=== PATIENT | female | born 1965 | race Caucasian/White ===

== ENCOUNTER 2020-07-26 09:20 | Emergency (ER) | payer OTHER, SELFPAY ==
--- NOTE | ~2020-07-26 | XR_ITS ---
EXAMINATION: XR ankle LT min 3V DATE: 07/26/2020 11:00 INDICATION: Left ankle pain, initial encounter TECHNIQUE: Anteroposterior, lateral, mortise, and additional oblique view of the ankle were obtained. COMPARISON: 09/04/2008 FINDINGS: An oblique lucency is seen in the distal fibula at the site of the prior fibular fracture. No definite new fibular abnormality is identified. A healed fracture of the medial malleolus is noted . There is ankle soft tissue swelling. 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 IMPRESSION: 1. Soft tissue swelling of the ankle without definite acute osseous abnormality identified. Reviewed, dictated and finalized at location B.
--- NOTE | ~2020-07-26 | US_ITS ---
EXAMINATION: US venous doppler [facility] DATE: 07/26/2020 11:30 INDICATION: Left ankle pain TECHNIQUE: Lowe scale images without and with compression and Doppler images of the left lower extrem ity veins were obtained. COMPARISON: None FINDINGS: The left common femoral vein, profunda femoral vein, femoral vein, popliteal vein, peroneal trunk, posterior tibial veins, and greater saphenous vein are patent. IMPRESSION: 1. Patent left lower extremity veins. No evidence of deep venous thrombosis. Reviewed, dictated and finalized at location B.
[2020-07-26 09:40] VITALS: BP 135/75; PULSE 78; RESP 14; TEMP 36.6; O2SAT 99
--- NOTE | 2020-07-26 10:51 | ED.LOWEXIN ---
HPI - Extremity Injury (Lower) General Chief Complaint: Extremity Injury, Lower <Sintia Umanzor PA-C - Last Filed: 07/26/20 14:35> Stated Complaint: ankle pain <DANIELE Navarro Last Filed: 07/26/20 14:35> Time Seen by Provider: 07/26/20 10:14 <DANIELE Navarro Last Filed: 07/26/20 14:35> Source: patient <DANIELE Navarro Last Filed: 07/26/20 14:35> Mode of arrival: wheelchair <DANIELE Navarro Last Filed: 07/26/20 14:35> Limitations: no limitations <DANIELE Navarro Last Filed: 07/26/20 14:35> History of Present Illness HPI Narrative: This is a 54-year-old female that presents the emergency department for acute on chronic left ankle pain since last night. No known recent injury or trauma. Reports history of fracture to this ankle with ORIF, reports hardware has since been removed. Reports she sees a painting and coating worker for her pain in this ankle. Reports she has recently been diagnosed with lymphedema in this leg. Reports since last night she has been having trouble bearing weight on the foot. Reports her pain is worse than usual. Also reports she noted a rash on the left leg this morning. Denies fever. <DANIELE Navarro Last Filed: 07/26/20 14:35> Related Data Home Medications: Home Medications Medication Instructions Recorded Confirmed celecoxib mg 07/26/20 fluoxetine mg 07/26/20 furosemide 07/26/20 gabapentin 07/26/20 hydrocodone-acetaminophen tablet 07/26/20 hyoscyamine sulfate mg 07/26/20 omeprazole 07/26/20 ondansetron 07/26/20 trazodone 50 mg PO HS PRN 07/26/20 <DANIELE Navarro Last Filed: 07/26/20 14:35> Allergies/Adverse Reactions: Allergies Allergy/AdvReac Type Severity Reaction Status Date / Time nickel Allergy Intermediate Hives / Verified 02/13/18 18:56 Red Face <DANIELE Navarro Last Filed: 07/26/20 14:35> Review of Systems Review of Systems: Narrative: CONSTITUTIONAL: Denies fever SKIN: Reports rash MUSCULOSKELETAL: Reports joint pain, and myalgia. NEUROLOGIC: Denies numbness <Sintia Umanzor PA-C - Last Filed: 07/26/20 14:35> All systems reviewed & are unremarkable except as noted in HPI and below <Sintia Umanzor PA-C - Last Filed: 07/26/20 14:35> [facility] Past Medical History Medical History: Medical History (Updated 07/26/20 @ 14:34 by Sintia Umanzor PA-C) History of depression History of gastroesophageal reflux (GERD) <Sintia Umanzor PA-C - Last Filed: 07/26/20 14:35> Family History Family History: Family History (Updated 02/13/16 @ 08:25 by DOCTOR UNKNOWN) Other Asthma Depression Family history of arthritis Family history of chronic obstructive pulmonary disease Family history of hearing loss Family history of hepatitis Family history of lung cancer Family history of mental disorder Family history of osteoporosis Family history of thyroid disease Hypertension <Sintia Umanzor PA-C - Last Filed: 07/26/20 14:35> Social History Social History: Social History (Updated 07/26/20 @ 10:53 by Sintia Umanzor PA-C) Smoking status: Never smoker Alcohol intake: current Substance use: never <Sintia Umanzor PA-C - Last Filed: 07/26/20 14:35> Exam Narrative: Exam Narrative: GENERAL: Well-appearing, obese, and in no acute distress. HEAD: Normocephalic, atraumatic. EYES: EOMI. EXTREMITIES: Normal range of motion, except decreased range of motion in the left ankle which patient reports is ongoing since her surgery. Non-pitting edema to the left ankle and left lower leg which patient reports is chronic for her. Normal DP pulses. Normal sensation SKIN: Warm, dry. A few scattered red papules on the left lower leg NEURO: No focal deficits. Alert and oriented x3. PSYCH: Normal mood and affect <Sintia Umanzor PA-C - Last Filed: 07/26/20 14:35> Course Vital Signs Vital signs:
[2020-07-26] MEDS: MORPHINE SULFATE 10 MG/ML AMP IM (11:00)
[2020-07-26] MEDS: ONDANSETRON HCL ODT 4 MG TABLET PO (11:00)
[2020-07-26 11:16] LABS: Basophils Percent Auto 0.9 % (0.2-1.2); Eosinophils Absolute Auto 0.3 K/mm3 (0-0.3); Eosinophils Percent Auto 6.3 % (0-4.4); Hematocrit 34.4 % (37.0-47.0); Hemoglobin 11.2 g/dL (12.0-15.0); Immature Granulocyte Absolute 0.01 K/mm3 (0.00-0.031); Immature Granulocyte Percent A 0.2 % (0-0.5); Lymphocytes Absolute Auto 1.26 K/mm3 (0.9-3.2); Lymphocytes Percent Auto 28.6 % (18.3-44.2); Mean Corpuscular HGB Conc 32.6 g/dl (32-36); Mean Corpuscular Hemoglobin 28.5 pg (26-34); Mean Corpuscular Volume 87.5 fl (80-100); Mean Platelet Volume 9.6 fl (7.4-10.4); Monocytes Absolute Auto 0.4 K/mm3 (0.1-0.6); Monocytes Percent Auto 8.2 % (2.6-8.5); Neutrophils Absolute Auto 2.5 K/mm3 (1.3-6.7); Neutrophils Percent Auto 55.8 % (45.5-73.1); Platelet Count Result 232 k/mm3 (150-375); Red Blood Count 3.93 M/mm3 (4.2-5.4); Red Cell Distribution Width 12.9 % (11.5-14.5); White Blood Count 4.4 K/mm3 (4.5-10.0)
[2020-07-26 11:36] LABS: Anion Gap 6 mmol/L (8-16); Blood Urea Nitrogen 17 mg/dL (7-17); CRP 3.1 mg/dL (<1.0); Calcium 9.2 mg/dL (8.4-10.2); Carbon Dioxide 27 mmol/L (22-30); Chloride 104 mmol/L (98-107); Estimated CRCL calculation 93 ml/min; Estimated Glomerular Filt Rate > 60; Glucose 95 mg/dL (65-105); Potassium 4.7 mmol/L (3.4-5.0); Sodium 137 mmol/L (137-145)
[2020-07-26 12:35] VITALS: BP 129/74; PULSE 73; RESP 12; O2SAT 99
[2020-07-26 14:12] VITALS: BP 124/70; PULSE 70; RESP 12; O2SAT 99
== END 2020-07-26 14:40 | disposition home or self-care (01) ==
PROVIDERS: Physician Assistant; Emergency Provider General Practice; PCP Family Medicine
DX: S82.832A Other fracture of upper and lower end of left fibula, initial encounter for closed fracture (principal); F32.9 Major depressive disorder, single episode, unspecified; K21.9 Gastro-esophageal reflux disease without esophagitis; X58.XXXA Exposure to other specified factors, initial encounter
CPT/HCPCS: 29515; 36415; 73610; 80048; 85025; 86140; 93971; 96372; 99284; A9270; J1100; J2270

== ENCOUNTER → 2020-10-12 11:01 | Outpatient (CLI) | payer OTHER, SELFPAY ==
--- NOTE | ~2020-10-12 | MR_ITS ---
EXAMINATION: MR thoracic spine wo con EXAM DATE: 10/12/2020 11:38 INDICATION: Thoracic radiculopathy . Mid back pain. TECHNIQUE: Multi-sequential, multiplanar MR images of the thoracic spine were obtained without contra st. Sagittal T1, T2, T2 fat saturation, axial T2 weighted images reviewed. There is no prior study for comparison. Axial T1 weighted sequence. There are no prior studies for comparison. FINDINGS: There is mild thoracic disc disease and arthropathy. No central canal or neural foraminal s tenosis. The spinal cord signal intensity and intrinsic morphology is normal. Vertebral body heights are maintained. There are several focal signal abnormalities consistent with hemangiomata, otherwise without focal suspicious marrow signal abnormalities. Paraspinal soft tissue is unremarkable. IMPRESSION: Mild thoracic spondylosis without stenosis. Reviewed, dictated and finalized at location B. SCALDER
== END ==
PROVIDERS: PCP Family Medicine; Visit Provider Physician Assistant
DX: M47.24 Other spondylosis with radiculopathy, thoracic region (principal)
CPT/HCPCS: 72146

== ENCOUNTER → 2021-01-21 10:03 | Outpatient (CLI) | payer OTHER, SELFPAY ==
--- NOTE | ~2021-01-21 | MR_ITS ---
EXAMINATION: MR cervical spine wo con EXAM DATE: 01/21/2021 11:02 INDICATION: Cervical radicular pain, chronic neck pain, right 4th digit numbness left elbow burning. TECHNIQUE: Multi-sequential, multiplanar MR images of the cervical spine were obtained without contra st. Axial T2, axial T2 MERGE sequence. Sagittal T1, T2, T2 fat saturation images also obtained. Th ere is no prior study for comparison. FINDINGS: There is a approximately 2 cm right thyroid lobe nodule; this was previously biopsied in 2 016. Only mild cervical disc disease. Vertebral body heights are maintained. The vertebral bodies are aligned in the AP dimension. The spinal cord signal intensity and intrinsic morphology is normal. Ce rvicomedullary junction is normal in appearance. There are scattered focal signal abnormalities consi stent with hemangiomata, otherwise without focal suspicious marrow signal abnormalities. Paraspinal soft tissue is unremarkable. Level by level evaluation: C2-C3: Disc does not extend beyond the endplate margin. Uncovertebral joint arthropathy: None. Facet joint arthropathy: Mild bilateral. Neural foraminal stenosis: No stenosis. Central canal stenosis: No stenosis. C3-C4: Disc does not extend beyond the endplate margin. Uncovertebral joint arthropathy: None. Facet joint arthropathy: Mild to moderate bilateral. Neural foraminal stenosis: No stenosis. Central canal stenosis: No stenosis. C4-C5: There is a minimal diffuse disc bulge. Uncovertebral joint arthropathy: Mild to moderate bilateral. Facet joint arthropathy: None. Neural foraminal stenosis: No stenosis. Central canal stenosis: No stenosis. C5-C6: There is a minimal diffuse disc bulge. Uncovertebral joint arthropathy: None. Facet joint arthropathy: Mild bilateral. Neural foraminal stenosis: No stenosis. Central canal stenosis: No stenosis. C6-C7: Disc does not extend beyond the endplate margin. Uncovertebral joint arthropathy: Mild bilateral. Facet joint arthropathy: Minimal bilateral. Neural foraminal stenosis: No stenosis. Central canal stenosis: No stenosis. C7-T1: Disc does not extend beyond the endplate margin. Uncovertebral joint arthropathy: None. Facet joint arthropathy: Mild left. Neural foraminal stenosis: No stenosis. Central canal stenosis: No stenosis. IMPRESSION: 1. Mild cervical spondylosis without stenosis. Reviewed, dictated and finalized at location A. ILIZING MACHINE OPERATOR
== END ==
PROVIDERS: Visit Provider Physician Assistant
DX: M54.12 Radiculopathy, cervical region (principal); M47.812 Spondylosis without myelopathy or radiculopathy, cervical region
CPT/HCPCS: 72141

== ENCOUNTER 2022-08-07 08:00 | Outpatient (NON) | payer BC, SELFPAY | END 2022-08-07 08:01 | disposition home or self-care (01) | LOC: ANHLAB 08-08 12:47 | PROVIDERS: PCP Family Medicine; Visit Provider Surgery Plastic and Reconstructive Surgery | DX: L98.9 Disorder of the skin and subcutaneous tissue, unspecified (principal) | CPT/HCPCS: 88304 ==

== ENCOUNTER 2023-10-28 07:00 | Outpatient (NON) | payer BC, SELFPAY | END 2023-10-28 07:01 | disposition home or self-care (01) | LOC: ANHLAB 10-30 11:51 | PROVIDERS: PCP Family Medicine; Visit Provider Surgery Plastic and Reconstructive Surgery | DX: R22.9 Localized swelling, mass and lump, unspecified (principal) | CPT/HCPCS: 88305 ==

== ENCOUNTER 2023-11-20 17:37 | Outpatient (NON) | payer BC, SELFPAY | END 2023-11-20 17:38 | disposition home or self-care (01) | LOC: ANHLAB 17:40 | PROVIDERS: PCP Family Medicine; Visit Provider Surgery Plastic and Reconstructive Surgery | DX: L76.34 Postprocedural seroma of skin and subcutaneous tissue following other procedure (principal) | CPT/HCPCS: 87070; 87075; 87147; 87181; 87186; 87205 ==

== ENCOUNTER 2025-02-04 20:33 | Inpatient (IN) | payer BC, SELFPAY ==
--- NOTE | ~2025-02-04 | XR_ITS ---
CHEST RADIOGRAPH, PA AND LATERAL CLINICAL HISTORY: CP, THAT RADIATES TO BACK . COMPARISON: 02/13/2018 TECHNIQUE: PA and lateral views of the chest. FINDINGS The cardiomediastinal silhouette is unremarkable. The lungs are clear. Significant gaseous distention of the stomach, possibly related to patient's discomfort. IMPRESSION: No focal infiltrate or effusion. Reviewed, dictated and finalized at location A.
--- OUTSIDE RECORDS SUMMARY | 2025-02-04 20:35 | XMS_ITS | Encounter Summary ---
Author Organization [facility] Address [address] [place] [address] Care Team Providers Care Claim Approver Name Role Phone Vinnie Goddard MD Primary Care Provider [phone] Encounter Details Date Type Department Care Team (Late st Contact Info) Description 12/07/2024 Igneous Systemst Message Enc [facility] Family Medicine - [place] [address] [facility], [address] [place] [phone] Vinnie Goddard MD [address] [facility] [address] [place] [address] [phone] Sick 2+ days Social History Tobacco Use Types Packs/Day Years Used Date Smoking Tobacco: Never Passive Smoke Exposure: Never Smokeless Tobacco: Never Comments:Never Smoked Alcohol Use Standard Drinks/Week Comments No 0 (1 standard drink = 0.6 oz pur e alcohol) none AUDIT-C Answer Date Recorded Frequency of Alcohol Consumption Never 01/23/2019 Average Number of Drinks Not on file 019 Frequency of Binge Drinking Not on file 06/2019 PHQ-2 Answer Date Recorded Patient Health Questionnaire-2 Score 0 12/10/2024 Comments No Sex and Gender Information Value Date Recorded Sex Assigned at Female 05/28/2023 8:30 AM CDT Legal Sex Female 4:17 PM CDT Gender Identity Female 05/28/2023 8:30 AM CDT Sexual Orientation Straight 12/10/2024 1: 09 PM INTERNATIONAL RELATIONS TEACHER documented as of this encounter Functional Status * RETIRED Are you deaf or do you have serious difficulty hearing Answer Date of Assessment Author Status No 10/05/2020 2:38 PM INTERNATIONAL RELATIONS TEACHER Activ e * RETIRED Are you blind or do you have serious difficulty seeing, even when wearing glasses? Answer Date of Assessment Author Status No 10/05/2020 2:38 PM INTERNATIONAL RELATIONS TEACHER Activ e * Do you have serious difficulty walking or climbing stairs? Answer Date of Assessment Author Status No 10/05/2020 2:38 PM INTERNATIONAL RELATIONS TEACHER Marisela Cotton RN Active * Do you have difficulty dressing or bathing? Answer Date of Assessment Author Status No 10/05/2020 2:38 PM INTERNATIONAL RELATIONS TEACHER Marisela Cotton RN Active * Because of a physical, mental, or emotional condition, do you have difficulty doing errands alone such as visiting a doctor's office or shopping? Answer Date of Assessment Author Status No 10/05/2020 2:38 PM INTERNATIONAL RELATIONS TEACHER Marisela Cotton RN Active documented as of this encounter Mental Status * Because of a physical, mental, or emotional condition, do you have serious difficulty concentrating, remembering, or making decisions? Answer Entry Date Author Status No 10/05/2020 2:38 PM INTERNATIONAL RELATIONS TEACHER Marisela Cotton RN Active documented in this encounter Plan of Treatment Not on file documented as of this encounter Visit Diagnoses Not on filedocumented in this encounter Additional Health Concerns Assessment Noted Time PHQ-9 Depression Total Score: 2 02/27/20 22 4:28 PM CDT documented as of this encounter Care Teams Claim Approver Relationship Specialty Start Date End Date Vinnie Goddard MD [address] [facility] [address] [place] [address] PCP - General FAMILY PRACTICE 02/17/18 documented as of this encounter
--- OUTSIDE RECORDS SUMMARY | 2025-02-04 20:35 | XMS_ITS | Encounter Summary ---
Author Organization [facility] Address [address] [place] [address] Care Team Providers Care Pyrotechnician Name Role Phone Vinnie Goddard MD Primary Care Provider [phone] Encounter Details Date Type Department Care Team (Late st Contact Info) Description 03/18/2024 MyCmascotsecrett Message Enc [facility] Family Medicine - [place] [address] [facility], [address] [place] [address] [phone] Vinnie Goddard MD [address] [facility] [address] [place] [address] [phone] Wegovy Social History Tobacco Use Types Packs/Day Years [...] Date Recorded Patient Health Questionnaire-2 Score 0 10/29/2023 Comments No Sex and Gender Information Value Date Recorded Sex Assigned at Female 05/28/2023 8:30 AM CDT Legal Sex Female 4:17 PM CDT Gender Identity Female 05/28/2023 8:30 AM CDT Sexual Orientation Straight 12/10/2024 1: 09 PM CHIEF OF FIELD OPERATIONS documented as of this encounter Functional Status * RETIRED Are you deaf or do you have serious difficulty hearing Answer Date of Assessment Author Status No 10/05/2020 2:38 PM CHIEF OF FIELD OPERATIONS Activ e * RETIRED Are you blind or do you have serious difficulty seeing, even when wearing glasses? Answer Date of Assessment Author Status No 10/05/2020 2:38 PM CHIEF OF FIELD OPERATIONS Activ e * Do you have serious difficulty walking or climbing stairs? Answer Date of Assessment Author Status No 10/05/2020 2:38 PM CHIEF OF FIELD OPERATIONS Marisela Cotton RN Active * Do you have difficulty dressing or bathing? Answer Date of Assessment Author Status No 10/05/2020 2:38 PM CHIEF OF FIELD OPERATIONS Marisela Cotton RN Active * Because of a physical, mental, or emotional condition, do you have difficulty doing errands alone such as visiting a doctor's office or shopping? Answer Date of Assessment Author Status No 10/05/2020 2:38 PM CHIEF OF FIELD OPERATIONS Marisela Cotton RN Active documented as of this encounter Mental Status * Because of a physical, mental, or emotional condition, do you have serious difficulty concentrating, remembering, or making decisions? Answer Entry Date Author Status No 10/05/2020 2:38 PM CHIEF OF FIELD OPERATIONS Marisela Cotton RN Active documented in this encounter Plan of Treatment Not on file documented as of this encounter Visit Diagnoses Not on filedocumented in this encounter Additional Health Concerns Assessment Noted Time PHQ-9 Depression Total Score: 2 02/27/20 22 4:28 PM CDT documented as of this encounter Care Teams Pyrotechnician Relationship Specialty Start Date End Date Vinnie Goddard MD [address] [facility] [address] [place] [address] PCP - General FAMILY PRACTICE 02/17/18 documented as of this encounter
--- OUTSIDE RECORDS SUMMARY | 2025-02-04 20:35 | XMS_ITS | Encounter Summary ---
Author Organization [facility] Address [address] [place] [address] Care Team Providers Care Insurance Clerk Name Role Phone Vinnie Goddard MD Primary Care Provider [phone] Encounter Details Date Type Department Care Team (Late st Contact Info) Description 07/27/2024 Copybart Message Enc [facility] Family Medicine - [place] [address] [facility], [address] [place] [phone] Vinnie Goddard MD [address] [facility] [address] [place] [address] [phone] Surgery Social History Tobacco Use Types Packs/Day Years [...] Date Recorded Patient Health Questionnaire-2 Score 0 06/11/2024 Comments No Sex and Gender Information Value Date Recorded Sex Assigned at Female 05/28/2023 8:30 AM CDT Legal Sex Female 4:17 PM CDT Gender Identity Female 05/28/2023 8:30 AM CDT Sexual Orientation Straight 12/10/2024 1: 09 PM TUBE LANCER documented as of this encounter Functional Status * RETIRED Are you deaf or do you have serious difficulty hearing Answer Date of Assessment Author Status No 10/05/2020 2:38 PM TUBE LANCER Activ e * RETIRED Are you blind or do you have serious difficulty seeing, even when wearing glasses? Answer Date of Assessment Author Status No 10/05/2020 2:38 PM TUBE LANCER Activ e * Do you have serious difficulty walking or climbing stairs? Answer Date of Assessment Author Status No 10/05/2020 2:38 PM TUBE LANCER Marisela Cotton RN Active * Do you have difficulty dressing or bathing? Answer Date of Assessment Author Status No 10/05/2020 2:38 PM TUBE LANCER Marisela Cotton RN Active * Because of a physical, mental, or emotional condition, do you have difficulty doing errands alone such as visiting a doctor's office or shopping? Answer Date of Assessment Author Status No 10/05/2020 2:38 PM TUBE LANCER Marisela Cotton RN Active documented as of this encounter Mental Status * Because of a physical, mental, or emotional condition, do you have serious difficulty concentrating, remembering, or making decisions? Answer Entry Date Author Status No 10/05/2020 2:38 PM TUBE LANCER Marisela Cotton RN Active documented in this encounter Plan of Treatment Not on file documented as of this encounter Visit Diagnoses Not on filedocumented in this encounter Additional Health Concerns Assessment Noted Time PHQ-9 Depression Total Score: 2 02/27/20 22 4:28 PM CDT documented as of this encounter Care Teams Insurance Clerk Relationship Specialty Start Date End Date Vinnie Goddard MD [address] [facility] [address] [place] [address] PCP - General FAMILY PRACTICE 02/17/18 documented as of this encounter
--- OUTSIDE RECORDS SUMMARY | 2025-02-04 20:35 | XMS_ITS | Encounter Summary ---
Author Organization [facility] Address [address] [place] [address] Care Team Providers Care Datapower Developer Name Role Phone Vinnie Goddard MD Primary Care Provider [phone] Encounter Details Date Type Department Care Team (Late st Contact Info) Description 08/06/2024 Facet Decision Systemst Message Enc [facility] Family Medicine - [place] [address] [facility], [address] [place] [phone] Vinnie Goddard MD [address] [facility] [address] [place] [address] [phone] Follow up from surgery Social History Tobacco Use Types Packs/Day Years [...] Sexual Orientation Straight 12/10/2024 1: 09 PM ICE SELLER documented as of this encounter Functional Status * RETIRED Are you deaf or do you have serious difficulty hearing Answer Date of Assessment Author Status No 10/05/2020 2:38 PM ICE SELLER Activ e * RETIRED Are you blind or do you have serious difficulty seeing, even when wearing glasses? Answer Date of Assessment Author Status No 10/05/2020 2:38 PM ICE SELLER Activ e * Do you have serious difficulty walking or climbing stairs? Answer Date of Assessment Author Status No 10/05/2020 2:38 PM ICE SELLER Marisela Cotton RN Active * Do you have difficulty dressing or bathing? Answer Date of Assessment Author Status No 10/05/2020 2:38 PM ICE SELLER Marisela Cotton RN Active * Because of a physical, mental, or emotional condition, do you have difficulty doing errands alone such as visiting a doctor's office or shopping? Answer Date of Assessment Author Status No 10/05/2020 2:38 PM ICE SELLER Marisela Cotton RN Active documented as of this encounter Mental Status * Because of a physical, mental, or emotional condition, do you have serious difficulty concentrating, remembering, or making decisions? Answer Entry Date Author Status No 10/05/2020 2:38 PM ICE SELLER Marisela Cotton RN Active documented in this encounter Plan of Treatment Not on file documented as of this encounter Visit Diagnoses Not on filedocumented in this encounter Additional Health Concerns Assessment Noted Time PHQ-9 Depression Total Score: 2 02/27/20 22 4:28 PM CDT documented as of this encounter Care Teams Datapower Developer Relationship Specialty Start Date End Date Vinnie Goddard MD [address] [facility] [address] [place] [address] PCP - General FAMILY PRACTICE 02/17/18 documented as of this encounter
--- OUTSIDE RECORDS SUMMARY | 2025-02-04 20:35 | XMS_ITS | Encounter Summary ---
Author Organization [facility] Care Team Providers Care Doors Prefitter Name Role Phone Luc Stevens MD Primary Care Provider + Jasmine Mendoza MD Primary Care Provider [phone] Luc Stevens MD Primary Care Provider + Vinnie Goddard MD Primary Care Provider [phone] Encounter Details Date Type Department Care Team (Latest Contact Info) Description 05/07/2016 Orders Only [facility] ProviderKeon MD [address] [place] [id number] Social History Tobacco Use Types Packs/Day Years Used Date Smoking Tobacco: Never Alcohol Use Standard Drinks/Week Comments Yes 0 (1 standard drink = 0.6 oz pur e alcohol) Comments Unknown Sex and Gender Information Value Date Recorded Sex Assigned at Not on file Legal Sex Female 12:39 AM FASHION DIRECTOR PARTY PLAN SALES Gender Identity Not on file Sexual Orientation Not on file documented as of this encounter Plan of Treatment Not on file documented as of this encounter Procedures Procedure Name Priority Date/Time Associated Diagnosis Comments PROCEDURE - RESULT 05/11/2016 12 :00 AM CDT documented in this encounter Results * PROCEDURE - RESULT (05/11/2016 12:00 AM CDT) Narrative 05/11/2016 12:00 AM CDT Ordered by an unspecified provider. us Historical Provider Final Res ult documented in this encounter Visit Diagnoses Not on filedocumented in this encounter Care Teams Doors Prefitter Relationship Specialty Start Date End Date Luc Stevens MD [address] [place] [address] PCP - General 04/05/17 02/09/18 Jasmine Mendoza MD [address] [place] [address] PCP - General 02/10/18 02/23/18 Luc Stevens MD [address] [place] [address] PCP - General 02/24/18 07/26/20 Vinnie Goddard MD [address] [address] PCP - General Family Practice 07/27/20 documented as of this encounter
--- OUTSIDE RECORDS SUMMARY | 2025-02-04 20:35 | XMS_ITS | Data Portability ---
Author Organization [facility] [employer] [facility] [place] , [facility] Address [address] [place] [address] Care Team Providers Care Pharmacy Services Director Name Role Phone 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 Plan of Treatment Reminders Order Date Submit Date Provider Last Modified By Organization Details Last Modified Time Details Appointments None recorded. Lab None recorded. Referral breast surgery referral 2023 024 naun 3 [facility], 1 [facility], [place], [address], 4 16:38:18 Procedures None recorded. Surgeries None recorded. Imaging MAMMO, screening, digital, bilateral 2023 024 ATHENAFAX [facility], 1 [facility], [place], [address], 4 14:55:13 MAMMO, screening, digital, bilateral 2022 [email or web address], [address], [address] [address], [place], [address], 3 16:00:51 Medication Orders Estring 2 mg (7.5 mcg/24 hour) vaginal ring 2023 024 [facility] In [facility], [address] [place] [address] Line , [place], [address], 4 14:10:35 estradiol 0.01% (0.1 mg/gram) vaginal cream 2022 023 [facility] [address] In [facility], [address] [place], [address], 13:14:17 Patient TargetsNo targets recorded. Patient Instructions Encounter Date Encounter Id Patient Instructions Last Modified By Organization Details Last Modified Time 04/09/2023 [id number] atrophic vaginitis: care instructions Not available 04/09/2023 13:14:14 A healthy lifestyle: care instructions Not available 04/09/2023 13:13:51 calcium and vitamin D combination Not available 04/09/2023 13:13:51 depression (wome n only) Not available 04/09/2023 13:13:51 eating healthy foods: care instructions Not available 04/09/2023 13:13:51 exercise program : getting started Not available 04/09/2023 13:13:51 learning about colonoscopy Not available 04/09/2023 13:13:51 Reason for Referral Breast Surgery Referral for Inversion of nipple Referring Physician: Sintia Mojica, TRUSS MAKER, Encounter Date: 06/15/2024 Results Created Date Observation Date Name Description Value Unit Range Abnormal Flag Note LastModifiedBy Organization Detail LastModifiedTime 06/25/20 24 06/25/2024 MAMMO , scree jasper, tomos ynthe sis, bilat eral [facility] [address] [facility] [place] [address] This is a summar y report . The comple te report is availa ble in the patien t's medica l record . If you cannot access the medica l record , please contac t the patrice diaz for a detail ed fax or copy. EXAMIN ATION: Digita l bilate ral screen ing mammog riley with 3-D tomosy nthesi s ACCESS ION: [id number] EXAM DATE/T RYLAND: 06/25/20 24 8:49 AM REASON FOR EXAM: SCREEI NG Benign left-s ided biopsy in 2011. COMPAR TROY: 2017. 023 Techni que: Digita l screen ing mammog teresa of both breast s was perfor med in additi on to 3-D Tomosy nthesi s techni que. This study was read with the assist ance of a Global Filmd[employer] er-aid ed detect ion system . Tissue densit y: There are scatte red areas of fibrog landul ar densit y. Findin gs: There is no new focal asymme try, domina nt mass lesion , area of skin thicke jasper, or cluste r of suspic ious appear ing calcif icatio ns in either breast to sugges t malign tyrel. ===== IMPRES RAMON: ===== 1. Stable mammog raphic appear ance with no new findin gs to sugges t malign tyrel in either breast . Assess ment: ACR BI-RAD S 1 - NEGATI VE Recomm endati on: 1:Rout ine Screen ing Bilate ral Commen ts: ====== ====== ====== ====== Ordere d By: SINTIA MOJICA Electr onical ly Signed By: Talib Esquivel on 06/25/20 11:48 AM Interp reted By: Talib Esquivel , 06/25/20 11:[address], [address], 06/26/2024 16:57:02 Result Notes None recorded. Problems No Known Problems Procedures Surgical History Date Name Laterality Status Provider Name and Address Organization Details Recorded Time laparoscopic hysterectomy completed Alba Mojica [employer] [facility] 04/07/2023 17:45:01 020 resection of bilateral fallopian tubes completed Albaluois Mojica [employer] [facility] 04/07/2023 17:45:54 020 Cystourethroscopy completed Alba Boyd [employer] [facility] 04/07/2023 17:46:16 020 lysis of adhesions completed [employer] [facility] 04/07/2023 17:46:47 018 Most Recent [facility] [employer] 04/07/2023 17:37:18 018 Date of Last Pap Smear completed Yasmine [facility] [employer] 04/09/2023 12:39:51 017 Date of Last Colonoscopy completed Yasmine [facility] [employer] 04/09/2023 12:40:35 biopsy of breast [facility] [employer] 04/07/2023 17:40:39 Dilation and curettage completed [facility] [employer] 04/07/2023 17:41:25 [facility] [employer] [place] 04/07/2023 17:42:48 Hysteroscopy [facility] [employer] [facility] [place] 04/07/2023 17:43:54 Colonoscopy completed Yasmine [facility] [employer] 04/09/2023 12:28:35 Gall bladder completed Yasmine [facility] [employer] [place] 04/09/2023 12:28:35 Imaging Results Imaging Date Name Status LastModified by Organiz ation Details LastModified Time 06/25/2024 MAMMO, screening, tomosynthesis, bilateral completed [address], [address], 06/26/2024 16:57:02 Procedure Notes None recorded. Medical Equipment None Reported. Allergies Allergen ID Allergen Name Allergen Category Reaction Reaction Severity Criticality Documentation Date Start Date Code Code System Note Provider Name and Address Organization Details Recorded Time 370420 nickel environme nt,medica tion Not available Not available Not available 09/08/20212018 68413 29 RxNorm Sever ity: Moder ate; Not Available Not Available Not Available Medications Name Sig Start Date Stop Date Status Note LastModified by Organization Details LastModified Time fluoxetin e 40 mg capsule TAKE 1 CAPSULE (40 MG TOTAL) BY MOUTH DAILY. active Not Available Not Available No t Available Estring 2 mg (7.5 mcg/24 hour) vaginal ring Insert 1 vaginal ring by vaginal route. 2023 active Not Available Not Available Not Avai lable tizanidin e 2 mg tablet TAKE 1 TABLET BY MOUTH EVERY 8 HOURS active Not Available Not Available No t Available trazodone 50 mg tablet take 1 tablet (50 mg) by oral route PRN 06/15 completed traZODon e 50 mg oral tablet RxNorm: 198467 Allow Substitu tion: False Refill Denied: No Refill DateOccu rred: 09/30/20 Edited by: Sintia Archibald) on 11/08/20 Stopped by: Sintia Archibald) on Not Available Not Available Not Available ibuprofen 800 mg tablet TAKE 1 TABLET BY MOUTH EVERY 8 HOURS NEEDED active Not Available Not Available No t Available valacyclo vir 1 gram tablet TAKE 1 TABLET (1,000 MG TOTAL) BY MOUTH 2 (TWO) TIMES DAILY NEEDED FOR OUTBREAK active Not Available Not Available No t Available metronida zole 0.75 % (37.5 mg/5 gram) vaginal gel insert 1 applicat orful (37.5 mg) by vaginal route once daily at bedtime for 5 days then twice weekly for 4 months 04/09 completed metroNID AZOLE 0.75 % Vaginal Gel RxNorm: 006926 Allow Substitu tion: True Refill Denied: No Edited by: Jennifer Cordova) on 07/28/20 Stopped by: Jennifer Cordova) on Not Available Not Available Not Available metaxalon e 400 mg tablet TAKE 1 TABLET BY MOUTH THREE TIMES A DAY 06/15 completed Not Available Not Available Not Available sulfameth oxazole 800 mg-trimet hoprim 160 mg tablet TAKE 1 TABLET BY MOUTH TWICE A DAY 06/15 completed Not Available Not Available Not Available hydrocodo ne 10 mg-acetam inophen 325 mg tablet TAKE 1 TABLET BY MOUTH EVERY 4 HOURS NEEDED FOR CHRONIC PAIN active Not Available Not Available No t Available citalopra m 20 mg tablet TAKE 1 TABLET BY MOUTH EVERY DAY 06/15 completed Not Available Not Available Not Available triamcino lone acetonide 0.1 % dental paste PLACE ONTO TEETH 2 TIMES DAILY. 06/15 completed Not Available Not Available Not Available Flagyl 500 mg tablet 1 PO BID for 7 days. Do not drink alchohol while taking this medicati on. 06/02 completed Flagyl 500mg Tablet RxNorm: 727124 Allow Substitu tion: True Refill Denied: No Not Available Not Available Not Available hydrocodo ne 7.5 mg-acetam inophen 325 mg tablet 04/09 completed Hydrocod one/Acet aminophe n Allow Substitu tion: True Refill Denied: No Refill DateOccu rred: 09/19/20 18 Edited by: danny(Sintia Redman) on 07/28/20 19 Stopped by: danny(Sintia Redman) on Not Available Not Available Not Available cephalexi n 500 mg capsule TAKE 1 CAPSULE BY MOUTH EVERY 8 HOURS 06/15 completed Not Available Not Available Not Available pantopraz ole 40 mg tablet,de layed release TAKE 1 TABLET BY MOUTH EVERY DAY active Not Available Not Available No t Available hyoscyami ne sulfate 0.125 mg tablet TAKE 1 TABLET BY MOUTH 3-4 TIMES DAILY NEEDED. active Not Available Not Available No t Available gabapenti n 300 mg capsule TAKE 4 CAPSULES BY MOUTH NIGHTLY AT BEDTIME active Not Available Not Available No t Available mupirocin 2 % topical ointment APPLY TO AFFECTED AREA 3 TIMES A DAY FOR 7 DAYS 06/15 completed Not Available Not Available Not Available ergocalci ferol (vitamin D2) 1,250 mcg (50,000 unit) capsule TAKE 1 CAPSULE BY MOUTH ONE TIME PER WEEK active Not Available Not Available No t Available estradiol 0.01% (0.1 mg/gram) vaginal cream active Not Available Not Available Not Available methylpre dnisolone 4 mg tablets in a dose pack FOLLOW PACKAGE DIRECTIO NS 04/09 completed Not Available Not Available Not Available ondansetr on 4 mg disintegr ating tablet DISSOLVE 1 TABLET BY MOUTH EVERY 8 HOURS NEEDED FOR NAUSEA active Not Available Not Available No t Available fluoxetin e 20 mg capsule TAKE 1 CAPSULE BY MOUTH EVERY DAY 06/15 completed Not Available Not Available Not Available amoxicill in 875 mg-potass ium clavulana te 125 mg tablet TAKE 1 TABLET BY MOUTH TWICE A DAY FOR 10 DAYS 04/09 completed Not Available Not Available Not Available escitalop riley 10 mg tablet TAKE 1 TABLET BY MOUTH EVERY DAY 06/15 completed Not Available Not Available Not Available escitalop riley 20 mg tablet TAKE 1 TABLET BY MOUTH EVERY DAY 06/15 completed Not Available Not Available Not Available rosuvasta tin 20 mg tablet TAKE 1 TABLET BY MOUTH NIGHTLY AT BEDTIME active Not Available Not Available No t Available fluconazo le 09/30 completed Fluconaz ole Allow Substitu tion: True Refill Denied: No Refill DateOccu rred: 09/19/20 18 Edited by: kwame ellison(Thornt on, Lisseth ) on 09/30/20 Stopped by: kwame ellison(Thornt on, Lisseth ) on 09/30/20 Not Available Not Available Not Available ibuprofen 06/15 completed Ibuprofe n Allow Substitu tion: True Refill Denied: No Refill DateOccu rred: 09/19/20 18 Edited by: danny(Sintia Redman) on 07/28/20 19 Stopped by: Sintia Archibald) on Not Available Not Available Not Available Prozac 09/30 completed Prozac RxNorm: 37570 Allow Substitu tion: True Refill Denied: No Refill DateOccu rred: 09/19/20 18 Edited by: kwame ellison(Thornt on, Lisseth ) on 09/30/20 20 Stopped by: kwame ellison(Thornt on, Lisseth ) on 09/30/20 20 Not Available Not Available Not Available Maxzide 09/30 completed Maxzide RxNorm: 70155 Allow Substitu tion: True Refill Denied: No Refill DateOccu rred: 09/19/20 18 Edited by: kwame ellison(Thornt on, Lisseth ) on 09/30/20 20 Stopped by: kwame ellison(Thornt on, Lisseth ) on 11/13/20 20 Not Available Not Available Not Available Prilosec 06/15 completed Prilosec RxNorm: 551771 Allow Substitu tion: True Refill Denied: No Refill DateOccu rred: 09/19/20 18 Edited by: Sintia Archibald) on 07/28/20 19 Stopped by: danny(Sintia Redman) on Not Available Not Available Not Available Zyrtec PRN 2017 active Zyrtec RxNorm: 53453 Allow Substitu tion: True Refill Denied: No Refill DateOccu rred: 09/19/20 18 Edited by: danny(Sintia Redman) on 07/28/20 19 Stopped by: danny(Sintia Redman) on Not Available Not Available Not Available gabapenti n 04/03 completed Gabapent in RxNorm: 94 Allow Substitu tion: True Refill Denied: No Refill DateOccu rred: 09/19/20 18 Not Available Not Available Not Available Lexapro 09/30 completed Lexapro RxNorm: 461452 Allow Substitu tion: True Refill Denied: No Refill DateOccu rred: 09/30/20 Edited by: kwame ellison(Thornt on, Lisseth ) on 09/30/20 20 Stopped by: kwame ellison(Thornt on, Lisseth ) on Not Available Not Available Not Available Vagifem 10 mcg vaginal tablet insert 1 tablet (10 mcg) by vaginal route twice weekly 04/09 completed Vagifem 10 mcg Vaginal tablet RxNorm: 957094 Allow Substitu tion: True Refill Denied: No Edited by: danny(Sintia Redman) on 11/08/20 20 Stopped by: danny(Sintia Redman) on Not Available Not Available Not Available hydrocodo ne 2.5 mg-acetam inophen 325 mg tablet 04/09 completed Hydrocod one/Acet aminophe n Allow Substitu tion: True Refill Denied: No Refill DateOccu rred: 09/19/20 18 Edited by: danny(Sintia Redman) on 07/28/20 19 Stopped by: danny(Sintia Redman) on Not Available Not Available Not Available naloxone 4 mg/actuat ion nasal spray PLEASE SEE ATTACHED FOR DETAILED DIRECTIO NS 06/15 completed Not Available Not Available Not Available Wegovy 0.25 mg/0.5 mL subcutane ous pen injector INJECT 0.25 MG INTO THE SKIN ONCE A WEEK FOR 28 DAYS 06/15 completed Not Available Not Available Not Available Vitals Date Recorded Body height Body mass index (BMI) Body weight Systolic blood pressure Diastolic blood pressure Provider Name and Address Organization Details Last Updated DateTime 04/09/2023 172.72 cm 35.1 kg/m2 533810.1 2 g 130 mm[Hg] 82 mm[Hg] Yasmine Solomon [employer] [facility] 3 12:39:26 Date Recorded Body height Body mass index (BMI) Body weight Systolic blood pressure Diastolic blood pressure Provider Name and Address Organization Details Last Updated DateTime 06/15/2024 172.72 cm 34.3 kg/m2 840894.7 2 g 124 mm[Hg] 80 mm[Hg] Kalia Fraser [employer] [facility] 4 13:44:00 Social History Question Answer Notes LastModified by Organizat ion Details LastModified Time Tobacco Smoking Status Never Smoker Yasmine Solomon [facility] [employer] [facility] 04/09/2023 12:28:35 What Is Your Level Of Alcohol Consumption? Occasional [email or web address] Information not available 04/09/2023 Are You Blind Or Do You Have Difficulty Seeing? No [email or web address] Information not available 04/09/2023 Are You Currently Employed? Yes Information not available 04/09/2023 Are You Deaf Or Do You Have Serious Difficulty Hearing? No Information not available 04/09/2023 What Type Of Diet Are You Following? REGULAR [email or web address] Information not available 04/09/2023 Do You Or Have You Ever Used E-cigarettes Or Vape? 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 2 [email or web address] Information not available 04/09/2023 What Is Your Relationship Status? Information not available 04/07/2023 Are You Sexually Active? Yes Information not available 04/07/2023 Do You Use Any Illicit Or Recreational Drugs? No [email or web address] Information not available 04/09/2023 Do You Or Have You Ever Used Any Other Forms Of Tobacco Or Nicotine? No Information not available 04/09/2023 Sex: Unknown Functional Status Question Answer Note LastModified by Organizat ion Details LastModified Time What is your exercise level? Occasional [email or web address] Information not available 04/09/2023 Mental Status None recorded. Family History Relationship Description Onset Age of this Age Resolved Age Notes LastModified by Organization Details LastModified Time Mother Depressive disorder [email or web address] Not available 04/09 12:28:33 Mother Hypertensive disorder [email or web address] Not available 04/09 12:28:33 Mother Heart disease [email or web address] Not available 04/09 12:28:33 Mother Osteoporosis [email or web address] Not madelaine ilable 04/09/2023 12:28:33 Maternal Grandfather Malignant neoplastic disease [email or web address] Not available 04/09 12:28:33 Father Malignant tumor of lung [email or web address] Not available 04/09 12:28:33 Father Hypertensive disorder [email or web address] Not available 04/09 12:28:33 Father Heart disease [email or web address] Not available 04/09 12:28:33 Medical History Condition Response Gallbladder disease Y Osteopenia Y Anxiety Disorder Y Arthritis Y Seasonal allergies Y History of Abnormal Pap Y High Cholesterol Y Gynecological History Statement/Question Response If Post Menopausal, Age at Menopause 53 Date of Last Colonoscopy 11/18/2016 Flow Heavy Frequency of Cycle (Q days) 26 Date of LMP 08/18/2020 Date of Last Pap Smear 09/18/2018 Duration of Flow (days) 4-7 Most Recent Mammogram 09/30/2018 Current Control Method Hysterectom y Age at Menarche 16 Obstetrics History GPAL:G 3 P 3 0 0 3 Type Value Full Term 3 Living 3 Total 3 Past Encounters Encounter ID Performer Location Encounter Start Date Encounter Closed Date Diagnosis/Indication Diagnosis SNOMED-CT Code Diagnosis ICD10 Code Diagnosis Note [id number] Sintia Mojica MD [facility] [address] [place] [address] 04/09/2023 12:23:58 04/09/2023 16:00:51 Gynecologic examination 98441955 Z01.419 Screening for malignant neoplasm of breast 626699940 Z12.39 reports following up with Dr. Nguyễn for abnormal mammo in 2018. I was unable to view any of those records. Patient admits to being over due for Mammogram. Screening colonoscopy 44 0496653 Z12.11 2017 Depression screening 171 787201 Z13.31 none - minimal Atrophic vaginitis 15348 [address] N95.2 Female str ess incontinence 08350069 N39.3 offered referral. Patient declines. 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 1009 N64.59 Additional diagnosis detail: Inverted nipple Health Concerns Section Related Observation LastModified by Organization Detai ls LastModified Time None Recorded Concern Status LastModified by Organization Details LastModified Time None Recorded Advance Directives Directive None Recorded Payers Encounter Date Sequence Insurance Name Policy Number Policy Damon Covered Member ID Damon Member ID Guarantor Name 04/09/2023 1 [place] [id number] 1 Erika S Barnish [id number] AB Erika S Barnish 06/15/2024 1 [place] [id number] 1 Erika S Barnish [id number] AB Erika S Barnish Notes Date Note Type Note Provider Name and Address Organization Details Recorded Time 04/09/2023 text/html Annual Rectifying Operator Post-MenopausalRep orted bypatient.Menopaus al Symptoms:hot flashes Vaginal Bleeding:history of menopause having occurred; hysterectomy Urinary Symptoms:urinary frequency: times during the day Vulva:no genital lesion Vagina:normal vaginal discharge Breast:no breast lump; no nipple discharge; no breast pain; problems with right nipple feels needs surgery like what was done to left nipp;e Sexual Complaints:pain during intercourse; apotting after intercourse Psychological Symptoms:depressio n;anxiety; on medication Preventive Measures:encourage self breast examination; encourage regular exercise; needs to schedule mammogram Erika 57 y/o here for annual well women visit, she is post hysterectomy, Last mammogram 2018. Last colonscopy 2017 Sintia Mojica MD [address] [place] [address], [phone], [facility] [employer] [facility] 04/09/2023 13:15:10 06/15/2024 text/html Erika 58 y/o is here to discuss her nipple and get a mammogram order. She states her rt nipple is inverted. She states she was recently dx'd w/ lipidemia and wanted to know if it had anything to do with issue with her nipple. She denies any breast discharge, redness or irritation. Patient also reports that her vaginal dryness is bad. She cannot remember to use her estradiol cream. She really would like some other medication to treat. Sintia Mojica MD [address] [place] [address], [place], [address], [facility] [employer] [facility] 06/15/2024 14:24:03 OBGyn Episode No OBEpisode recorded.
--- OUTSIDE RECORDS SUMMARY | 2025-02-04 20:35 | XMS_ITS | Encounter Summary ---
Author Organization [facility] Care Team Providers Care Web Production Assistant Name Role Phone Luc Stevens MD Primary Care Provider + Jasmine Mendoza MD Primary Care Provider [phone] Luc Stevens MD Primary Care Provider + Vinnie Goddard MD Primary Care Provider [phone] Encounter Details Date Type Department Care Team (Latest Contact Info) Description 05/28/2016 Orders Only [facility] CLINCONV ProviderKeon MD [address] [place] [id number] Social History Tobacco Use Types Packs/Day Years Used Date Smoking Tobacco: Never Alcohol Use Standard Drinks/Week Comments Yes 0 (1 standard drink = 0.6 oz pur e alcohol) Comments Unknown Sex and Gender Information Value Date Recorded Sex Assigned at Not on file 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 us Historical Provider Final Res ult documented in this encounter Visit Diagnoses Not on filedocumented in this encounter Care Teams Web Production Assistant Relationship Specialty Start Date End Date Luc Stevens MD [address] [place] [address] PCP - General 04/05/17 02/09/18 Jasmine Mendoza MD [address] [place] [address] PCP - General 02/10/18 02/23/18 Luc Stevens MD [address] [place] [address] PCP - General 02/24/18 07/26/20 Vinnie Gdodard MD [address] [address] PCP - General Family Practice 07/27/20 documented as of this encounter
--- OUTSIDE RECORDS SUMMARY | 2025-02-04 20:35 | XMS_ITS | Encounter Summary ---
Author Organization [facility] Facility Care Team Providers Care Pearl Glue Drier Name Role Phone Luc Stevens MD Primary Care Provider + Jasmine Mendoza MD Primary Care Provider [phone] Luc Stevens MD Primary Care Provider + Vinnie Goddard MD Primary Care Provider [phone] Encounter Details Date Type Department Care Team (Latest Contact Info) Description 07/05/2017 Orders Only [facility] CLINCONV ProviderKeon MD [address] [place] [address] Social History Tobacco Use Types Packs/Day Years Used Date Smoking Tobacco: Never Alcohol Use Standard Drinks/Week Comments Yes 0 (1 standard drink = 0.6 oz pur e alcohol) Comments Unknown Sex and Gender Information Value Date Recorded Sex Assigned at Not on file 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 Historical Provider Final Res ult * PROCEDURE - RESULT (07/05/2017 12:00 AM CDT) Narrative 07/05/2017 12:00 AM CDT Ordered by an unspecified provider. Historical Provider Final Res ult documented in this encounter Visit Diagnoses Not on filedocumented in this encounter Care Teams Pearl Glue Drier Relationship Specialty Start Date End Date Luc Stevens MD [address] [place] [address] PCP - General 04/05/17 02/09/18 Jasmine Mendoza MD [address] [place] [address] PCP - General 02/10/18 02/23/18 Luc Stevens MD [address] [place] [address] PCP - General 02/24/18 07/26/20 Vinnie Goddard MD [address] [address] [place] [address] PCP - General Family Practice 07/27/20 documented as of this encounter
--- OUTSIDE RECORDS SUMMARY | 2025-02-04 20:35 | XMS_ITS | Encounter Summary ---
Author Organization [facility] Facility Care Team Providers Care Impregnating Helper Name Role Phone Luc Stevens MD Primary Care Provider + Jasmine Mendoza MD Primary Care Provider [phone] Luc Stevens MD Primary Care Provider + Vinnie Goddard MD Primary Care Provider [phone] Encounter Details Date Type Department Care Team (Latest Contact Info) Description 05/25/2016 Orders Only [facility] CLINCONV ProviderKeon MD [address] [place] [address] Social History Tobacco Use Types Packs/Day Years Used Date Smoking Tobacco: Never Alcohol Use Standard Drinks/Week Comments Yes 0 (1 standard drink = 0.6 oz pur e alcohol) Comments Unknown Sex and Gender Information Value Date Recorded Sex Assigned at Not on file Legal Sex Female 12:39 AM NITRIC ACID PLANT 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 us Historical Provider Final Res ult documented in this encounter Visit Diagnoses Not on filedocumented in this encounter Care Teams Impregnating Helper Relationship Specialty Start Date End Date Luc Stevens MD [address] [place] [address] PCP - General 04/05/17 02/09/18 Jasmine Mendoza MD [address] [place] [address] PCP - General 02/10/18 02/23/18 Luc Stevens MD [address] [place] [address] PCP - General 02/24/18 07/26/20 Vinnie Goddard MD [address] [address] PCP - General Family Practice 07/27/20 documented as of this encounter
--- OUTSIDE RECORDS SUMMARY | 2025-02-04 20:35 | XMS_ITS | Encounter Summary ---
Author Organization [facility] Facility Care Team Providers Care It Architecture Analyst Name Role Phone Luc Stevens MD Primary Care Provider + Jasmine Mendoza MD Primary Care Provider [phone] Luc Stevens MD Primary Care Provider + Vinnie Goddard MD Primary Care Provider [phone] Encounter Details Date Type Department Care Team (Latest Contact Info) Description 08/19/2017 Orders Only [facility] CLINCONV ProviderKeon MD [address] [place] [address] Social History Tobacco Use Types Packs/Day Years Used Date Smoking Tobacco: Never Alcohol Use Standard Drinks/Week Comments Yes 0 (1 standard drink = 0.6 oz pur e alcohol) Comments Unknown Sex and Gender Information Value Date Recorded Sex Assigned at Not on file Legal Sex Female 12:39 AM MACHINE OPERATOR 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 us Historical Provider Final Res ult documented in this encounter Visit Diagnoses Not on filedocumented in this encounter Care Teams It Architecture Analyst Relationship Specialty Start Date End Date Luc Stevens MD [address] [place] [address] PCP - General 04/05/17 02/09/18 Jasmine Mendoza MD [address] [place] [address] PCP - General 02/10/18 02/23/18 Luc Stevens MD [address] [place] [address] PCP - General 02/24/18 07/26/20 Vinnie Goddard MD [address] [address] PCP - General Family Practice 07/27/20 documented as of this encounter
--- OUTSIDE RECORDS SUMMARY | 2025-02-04 20:35 | XMS_ITS | Encounter Summary ---
Author Organization [facility] Facility Care Team Providers Care Furnace Charger Name Role Phone Luc Stevens MD Primary Care Provider + Jasmine Mendoza MD Primary Care Provider [phone] Luc Stevens MD Primary Care Provider + Vinnie Goddard MD Primary Care Provider [phone] Encounter Details Date Type Department Care Team (Latest Contact Info) Description 04/30/2016 Orders Only [facility] CLINCONV ProviderKeon MD [address] [place] [address] Social History Tobacco Use Types Packs/Day Years Used Date Smoking Tobacco: Never Alcohol Use Standard Drinks/Week Comments Yes 0 (1 standard drink = 0.6 oz pur e alcohol) Comments Unknown Sex and Gender Information Value Date Recorded Sex Assigned at Not on file Legal Sex Female 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 us Historical Provider Final Res ult documented in this encounter Visit Diagnoses Not on filedocumented in this encounter Care Teams Furnace Charger Relationship Specialty Start Date End Date Luc Stevens MD [address] [place] [address] PCP - General 04/05/17 02/09/18 Jasmine Mendoza MD [address] [place] [address] PCP - General 02/10/18 02/23/18 Luc Stevens MD [address] [place] [address] PCP - General 02/24/18 07/26/20 Vinnie Goddard MD [address] [address] PCP - General Family Practice 07/27/20 documented as of this encounter
--- OUTSIDE RECORDS SUMMARY | 2025-02-04 20:35 | XMS_ITS | Encounter Summary ---
Author Organization [facility] Facility Care Team Providers Care Can Sorter Name Role Phone Luc Stevens MD Primary Care Provider + Jasmine Mendoza MD Primary Care Provider [phone] Luc Stevens MD Primary Care Provider + Vinnie Goddard MD Primary Care Provider [phone] Encounter Details Date Type Department Care Team (Latest Contact Info) Description 07/11/2017 Orders Only [facility] CLINCONV ProviderKeon MD [address] [place] [address] Social History Tobacco Use Types Packs/Day Years Used Date Smoking Tobacco: Never Alcohol Use Standard Drinks/Week Comments Yes 0 (1 standard drink = 0.6 oz pur e alcohol) Comments Unknown Sex and Gender Information Value Date Recorded Sex Assigned at Not on file Legal Sex Female 12:39 AM SECURITY AGENT Gender Identity Not on file Sexual Orientation Not on file documented as of this encounter Plan of Treatment Not on file documented as of this encounter Procedures Procedure Name Priority Date/Time Associated Diagnosis Comments SCAN - PATHOLOGY 07/30/2017 12:0 0 AM CDT documented in this encounter Results * SCAN - PATHOLOGY (07/30/2017 12:00 AM CDT) Narrative 07/30/2017 12:00 AM CDT Ordered by an unspecified provider. us Historical Provider Final Res ult documented in this encounter Visit Diagnoses Not on filedocumented in this encounter Care Teams Can Sorter Relationship Specialty Start Date End Date Luc Stevens MD [address] [place] [address] PCP - General 04/05/17 02/09/18 Jasmine Mendoza MD [address] [place] [address] PCP - General 02/10/18 02/23/18 Luc Stevens MD [address] [place] [address] PCP - General 02/24/18 07/26/20 Vinnie Goddard MD [address] [address] PCP - General Family Practice 07/27/20 documented as of this encounter
--- OUTSIDE RECORDS SUMMARY | 2025-02-04 20:35 | XMS_ITS | Encounter Summary ---
Author Organization [facility] Facility Care Team Providers Care Vat House Supervisor Name Role Phone Luc Stevens MD Primary Care Provider + Jasmine Mendoza MD Primary Care Provider [phone] Luc Stevens MD Primary Care Provider + Vinnie Goddard MD Primary Care Provider [phone] Encounter Details Date Type Department Care Team (Latest Contact Info) Description 11/29/2016 Orders Only [facility] CLINCONV ProviderKeon MD [address] [place] [address] Social History Tobacco Use Types Packs/Day Years Used Date Smoking Tobacco: Never Alcohol Use Standard Drinks/Week Comments Yes 0 (1 standard drink = 0.6 oz pur e alcohol) Comments Unknown Sex and Gender Information Value Date Recorded Sex Assigned at Not on file Legal Sex Female 12:39 AM PRODUCT EXAMINER Gender Identity Not on file Sexual Orientation Not on file documented as of this encounter Plan of Treatment Not on file documented as of this encounter Procedures Procedure Name Priority Date/Time Associated Diagnosis Comments PROCEDURE - RESULT 12/05/2016 12 :00 AM PRODUCT EXAMINER documented in this encounter Results * PROCEDURE - RESULT (12/05/2016 12:00 AM PRODUCT EXAMINER) Narrative 12/05/2016 12:00 AM PRODUCT EXAMINER Ordered by an unspecified provider. us Historical Provider Final Res ult documented in this encounter Visit Diagnoses Not on filedocumented in this encounter Care Teams Vat House Supervisor Relationship Specialty Start Date End Date Luc Stevens MD [address] [place] [address] PCP - General 04/05/17 02/09/18 Jasmine Mendoza MD [address] [place] [address] PCP - General 02/10/18 02/23/18 Luc Stevens MD [address] [place] [address] PCP - General 02/24/18 07/26/20 Vinnie Goddard MD [address] [address] PCP - General Family Practice 07/27/20 documented as of this encounter
--- OUTSIDE RECORDS SUMMARY | 2025-02-04 20:36 | XMS_ITS | Encounter Summary ---
Author Organization [facility] Address [address] [place] [address] Care Team Providers Care Mortgage Collector Name Role Phone Vinnie Goddard MD Primary Care Provider [phone] Encounter Details Date Type Department Care Team (Late st Contact Info) Description 07/03/2023 eSight Message Enc [facility] Family Medicine - [address], [address] [place] [phone] Carlos, [employer] Provider ENT Social History Tobacco Use Types Packs/Day Years Used Date Smoking Tobacco: Never Smokeless Tobacco: Never Alcohol Use Standard Drinks/Week Comments No 0 (1 standard drink = 0.6 oz pur e alcohol) AUDIT-C Answer Date Recorded Frequency of Alcohol Consumption Never 01/23/2019 Average Number of Drinks Not on file 019 Frequency of Binge Drinking Not on file 06/2019 PHQ-2 Answer Date Recorded Patient Health Questionnaire-2 Score 0 11/26/2022 Comments No Sex and Gender Information Value Date Recorded Sex Assigned at Female 05/28/2023 8:30 AM CDT Legal Sex Female 4:17 PM CDT Gender Identity Female 05/28/2023 8:30 AM CDT Sexual Orientation Straight 12/10/2024 1: 09 PM SUMMER SESSIONS DIRECTOR documented as of this encounter Functional Status * RETIRED Are you deaf or do you have serious difficulty hearing Answer Date of Assessment Author Status No 10/05/2020 2:38 PM SUMMER SESSIONS DIRECTOR Activ e * RETIRED Are you blind or do you have serious difficulty seeing, even when wearing glasses? Answer Date of Assessment Author Status No 10/05/2020 2:38 PM SUMMER SESSIONS DIRECTOR Activ e * Do you have serious difficulty walking or climbing stairs? Answer Date of Assessment Author Status No 10/05/2020 2:38 PM Marisela Price RN Active * Do you have difficulty dressing or bathing? Answer Date of Assessment Author Status No 10/05/2020 2:38 PM Marisela Price RN Active * Because of a physical, mental, or emotional condition, do you have difficulty doing errands alone such as visiting a doctor's office or shopping? Answer Date of Assessment Author Status No 10/05/2020 2:38 PM Marisela Price RN Active documented as of this encounter Mental Status * Because of a physical, mental, or emotional condition, do you have serious difficulty concentrating, remembering, or making decisions? Answer Entry Date Author Status No 10/05/2020 2:38 PM Marisela Price RN Active documented in this encounter Plan of Treatment Not on file documented as of this encounter Visit Diagnoses Not on filedocumented in this encounter Additional Health Concerns Assessment Noted Time PHQ-9 Depression Total Score: 2 02/27/20 22 4:28 PM CDT documented as of this encounter Care Teams Mortgage Collector Relationship Specialty Start Date End Date Vinnie Goddard MD [address] [address] [place] [address] PCP - General FAMILY PRACTICE 02/17/18 documented as of this encounter
--- OUTSIDE RECORDS SUMMARY | 2025-02-04 20:36 | XMS_ITS | Clinical Summary ---
Author Organization [facility] Address [address] [place] [address] Care Team Providers Care Outside Plant Field Engineer Name Role Phone Vinnie Goddard MD Primary Care Provider Allergies Active Allergy Reactions Criticality Noted Date Comments Nickel Rash Medium 11/03/2010 Medications celecoxib (CeleBREX) 200 mg capsule Take one by mouth one time per day 0 0 04/28/2009 Active ergocalciferol (VITAMIN D) 50,000 unit capsule Take one by mouth every week 12 01/20/2009 Active Active Problems Problem Noted Date Diagnosed Date Vitamin D deficiency 04/03/2014 Overview (02/20/2017): VITAMIN D DEFICIENCY NOS Nontoxic uninodular goiter 04/03/2014 Overview (02/21/2017): NONTOX UNINODULAR GOITER Hypothyroidism 04/03/2014 Overview (02/21/2017): HYPOTHYROIDISM NOS Pure hypercholesterolemia 04/03/2014 Overview (02/22/2017): PURE HYPERCHOLESTEROLEM Immunizations Immunization Administration Dates Next Due Pfizer SARS-CoV-2 Monovalent Vaccination (12+ Yrs) CAI-READY TO USE 06/06/2022 Surgical History Surgery Date Site/Laterality Comments ANKLE FRACTURE SURGERY Medical History Medical History Date Comments Hx Other Medical ankle fx 2007 Anemia Anxiety Arthritis Depression Hypercholesteremia Migraines Obesity Thyroid disease Urinary tract infection Family History Medical History Relation Name Comments Arthritis Father Cancer Father Heart disease Father Hypertension Father Lung cancer Father Family history of lung cancer - (Added by TW Conv) Arthritis Mother Gout Mother Heart disease Mother Hypertension Mother Kyphosis Mother Osteoporosis Mother Osteoporosis; Diabetes type II Other Family hist ory of Diabetes -Type II; Relation Name Status Comments Father Mother Other Social History Tobacco Use Types Packs/Day Years Used Date Smoking Tobacco: Never Smokeless Tobacco: Never Alcohol Use Standard Drinks/Week Comments Yes 0 (1 standard drink = 0.6 oz pur e alcohol) RARE Comments Unknown Sex and Gender Information Value Date Recorded Sex Assigned at Not on file Legal Sex Female 12:39 AM KITCHENHAND Gender Identity Not on file Sexual Orientation Not on file Obstetrics History Last Filed Vital Signs Vital Sign Reading Time Taken Comments Blood Pressure 126/90 11/01/2017 10:15 AM KITCHENHAND Pulse 80 11/01/2017 10:15 AM KITCHENHAND Temperature - - Respiratory Rate - - Oxygen Saturation 96% 11/01/2017 10:15 AM KITCHENHAND Inhaled Oxygen Concentration - - Weight 108 kg (238 lb) 07/27/2020 10:35 AM CDT Height 172.7 cm (5' 8 ) 07/27/2020 10:35 AM CDT Body Mass Index 36.19 07/27/2020 10:35 AM CDT Plan of Treatment Health Maintenance Due Date Last Done Comments Cervical Cancer Screening 1966 Colon Cancer Screening-Colonoscopy 1966 Depression Screening 1966 Hepatitis C Screening 1966 Regular Well Visit/Exam 18-64 1984 Zoster Vaccine (1 of 2) 2016 Covid-19 Vaccine ( season) 2024 06/06/2022, 11/06/2021, 11/26/2020, Additional history exists Influenza Vaccine (#1) 2024 2023, 2020 Breast Cancer Screening-Mammogram 06/25/2025 06/25/2024, 06/25/2024, 05/28/2023, Additional history exists DTaP/Tdap/Td Vaccine (2 - Td or Tdap) 02/25/2033 02/25/2023, 07/06/2005 Hepatitis B Screening Completed 08/05/2006 , 09/18/2005, 07/06/2005 Pneumococcal vaccine <65 Aged Out No longer eligible based on patient's age to complete this topic Insurance ANTHEM ACCESS ANTHEM ACCESS ANTHEM ACCESS Care Teams Outside Plant Field Engineer Relationship Specialty Start Date End Date Vinnie Goddard MD [address] [facility] [address] [place] [address] PCP - General Family Practice 07/27/20
--- OUTSIDE RECORDS SUMMARY | 2025-02-04 20:36 | XMS_ITS | Encounter Summary ---
Author Organization [facility] Address [address] [place] [address] Care Team Providers Care Product Safety Administrator Name Role Phone Vinnie Goddard MD Primary Care Provider [phone] Encounter Details Date Type Department Care Team (Late st Contact Info) Description 09/30/2020 Prep for Procedure [facility] Pre-[place] [address] Sintia Sanchez MD [address] [place] [address] Social History Tobacco Use Types Packs/Day Years Used Date Smoking Tobacco: Never Smokeless Tobacco: Never Alcohol Use Standard Drinks/Week Comments No 0 (1 standard drink = 0.6 oz pur e alcohol) AUDIT-C Answer Date Recorded Frequency of Alcohol Consumption Never 01/23/2019 Average Number of Drinks Not on file 019 Frequency of Binge Drinking Not on file 06/2019 Comments No Sex and Gender Information Value Date Recorded Sex Assigned at Female 05/28/2023 8:30 AM CDT Legal Sex Female 4:17 PM CDT Gender Identity Female 05/28/2023 8:30 AM CDT Sexual Orientation Straight 12/10/2024 1: 09 PM CHECKERING MACHINE OPERATOR COVID-19 Exposure Response Date Recorded In the last month, have you been in contact with someone who was confirmed or suspected to have Coronavirus / COVID-19? No / Unsure 10/03/2020 10:57 AM CHECKERING MACHINE OPERATOR documented as of this encounter Plan of Treatment Not on file documented as of this encounter Results * (ABNORMAL) CBC W/DIFF AUTOMATED (10/03/2020 11:25 AM CHECKERING MACHINE OPERATOR) WBC 4.7 4.5 - 11.0 x10'3/uL 10/03/2020 12:12 PM [facility] RBC 4.49 4.20 - 5.40 x10'6/uL 10/03/2020 12:12 PM [facility] HGB 12.2 12.0 - 16.0 G/DL 10/03/2020 12:12 PM [facility] HCT 39.8 38.0 - 48.0 % 10/03/2020 12:12 PM [facility] MCV 88.6 80.0 - 94.0 FL 10/03/2020 12:12 PM [facility] MCH 27.2 27.0 - 31.0 PG 10/03/2020 12:12 PM [facility] MCHC 30.7(L) 32.0 - 36.0 G/DL 10/03/2020 12:12 PM [facility] RDW 12.5 11.5 - 14.5 % 10/03/2020 12:12 PM [facility] PLT 271 130 - 400 x10'3/uL 10/03/2020 12:12 PM [facility] MPV 9.8 9.3 - 12.2 FL 10/03/2020 12:12 PM [facility] DIFFERENTIAL TYPE AUTOMATED DIFFERENTIAL 10/03/2020 12:12 PM [facility] NEUTROPHILS % 55.2 % 10/03/2020 12:12 PM [facility] LYMPHOCYTES % 32.0 % 10/03/2020 12:12 PM CHECKERING MACHINE OPERATOR [facility] MONOCYTES % 6.0 % 10/03/2020 12:12 PM [facility] EOSINOPHILS 5.3 % 10/03/2020 12:12 PM [facility] BASOPHILS 1.1 % 10/03/2020 12:12 PM [facility] IMMATURE GRANS % 0.4 % 10/03/20 20 12:12 PM [facility] ABS. NEUTROPHILS TOTAL 2.59 1.80 - 7.70 x10'3/uL 10/03/2020 12:12 PM [facility] ABS. LYMPHOCYTES 1.50 1.00 - 4.80 x10'3/uL 10/03/2020 12:12 PM [facility] ABS. MONOCYTES 0.28 0.24 - 0.86 x10'3/uL 10/03/2020 12:12 PM [facility] ABS. EOSINOPHILS 0.25 0.04 - 0.36 x10'3/uL 10/03/2020 12:12 PM [facility] ABS. BASOPHILS 0.05 0.01 - 0.08 x10'3/uL 10/03/2020 12:12 PM [facility] ABS. IMMATURE GRANULOCYTES 0.02 0.00 - 0.49 x10'3/uL 10/03/2020 12:12 PM [facility] 10/03/2020 11:2 5 AM CHECKERING MACHINE OPERATOR us Sintia Sanchez MD LABORATORY Final Result [facility] [address] [place] [address], [place] [phone] * TYPE & SCREEN (10/03/2020 11:25 AM CHECKERING MACHINE OPERATOR) ABO/RH A NEGATIVE 10/03/2020 2:25 PM CHECKERING MACHINE OPERATOR [facility] ANTIBODY SCREEN NEGATIVE 10/03/2020 2:25 PM CHECKERING MACHINE OPERATOR [facility] SAMPLE EXPIRATION 10/08/2020,2 359 10/05/2020 9:02 AM CHECKERING MACHINE OPERATOR [facility] COMMENT NO HISTORY OF TRANSFUSIONS , OR ANTIBODIES, NEW SPECIMEN NOT NEEDED 10/05/2020 9:02 AM CHECKERING MACHINE OPERATOR [facility] 10/03/2020 11:2 5 AM CHECKERING MACHINE OPERATOR us Sintia Sanchez MD BLOOD BANK TEST ORDERABLES Final Result [facility] [address] [place] [address], documented in this encounter Visit Diagnoses Diagnosis Preop examination- Primary Preoperative examination, unspecified Pelvic pain documented in this encounter Additional Health Concerns Infection Onset Date Last Indicated Resolved Time COVID-19 Confirmed 08/01/2020 08/01/2020 0 12:32 AM CHECKERING MACHINE OPERATOR COVID-19 Rule Out 09/11/2021 09/11/2021 09/12/2021 2:29 PM CDT documented as of this encounter Care Teams Product Safety Administrator Relationship Specialty Start Date End Date Vinnie Goddard MD [address] [facility] [place] [address] [place] [address] PCP - General FAMILY PRACTICE 02/17/18 documented as of this encounter
--- OUTSIDE RECORDS SUMMARY | 2025-02-04 20:36 | XMS_ITS | Referral Summary ---
Author Organization [facility] Address [address] [place] [address] Care Team Providers Care Broker In Charge Name Role Phone Vinnie Goddard MD Primary [...] Vaccination (12+ Yrs) CAI-READY TO USE 06/06/2022 Social History Tobacco Use Types Packs/Day Years Used Date Smoking Tobacco: Never Smokeless Tobacco: Never Alcohol Use Standard Drinks/Week Comments Yes 0 (1 standard drink = 0.6 oz pur e alcohol) RARE Comments Unknown Sex and Gender Information Value Date Recorded Sex Assigned at Not on file Legal Sex Female 12:39 AM DIRECTOR LOAN Gender Identity Not on file Sexual Orientation Not on file Last Filed Vital Signs Vital Sign Reading Time Taken Comments Blood Pressure 126/90 11/01/2017 10:15 AM DIRECTOR LOAN Pulse 80 11/01/2017 10:15 AM DIRECTOR LOAN Temperature - - Respiratory Rate - - Oxygen Saturation 96% 11/01/2017 10:15 AM DIRECTOR LOAN Inhaled Oxygen Concentration - - Weight 108 kg (238 lb) 07/27/2020 10:35 AM CDT Height 172.7 cm (5' 8 ) 07/27/2020 10:35 AM CDT Body Mass Index 36.19 07/27/2020 10:35 AM CDT Plan of Treatment Not on file Insurance [employer] ACCESS [employer] ACCESS FORMERLY [facility] ACCESS Care Teams Broker In Charge Relationship Specialty Start Date End Date Vinnie Goddard MD [address] [facility] [address] [place], [place] [id number] PCP - General Family Practice 07/27/20
--- OUTSIDE RECORDS SUMMARY | 2025-02-04 20:36 | XMS_ITS | Continuity of Care Document ---
Author Organization [facility] Address [address] [place] [address] Phone Care Team Providers Care Seam Taper Machine Name Role Phone Brian Sales MD Unavailable Unavailable Medications Medication Instructions Dosage Effective Dates (start - stop) Status Comments Dymista 137 mcg-50 mcg/spray nasal spray 1 spray by intranasal route 2 times every day in each nostril - Active MEMBER: ESTHER, GROUP: [id number], RxBIN: [id number], ID: [id number] pantoprazole 40 mg tablet,delayed release take 1 tablet (40MG) by oral route one hour before a meal every day - Active Flovent HFA 44 mcg/actuation aerosol inhaler inhale 2 puff by inhalation route 2 times every day - Active Advance Directives Directive Yes / No Effective Date File Name No Information Encounters Encounter Description Practice Location Reason(s) For Visit Diagnoses Date Provider Providers [facility] [address] [place], [place], [id number] , [place] tel: [phone] [place] [facility] Eosinophilic esophagitisChronic rhinitis 6 Henrry Torres. [address], [id number] , [place]. tel: [phone] Referring Provider: Enzo Saleem, [facility] [address], [place], [address]. [phone] Family History Family Member Type Diagnosis Age At Onset No Information Payers Payer name Insurance type Covered libertarian ID Authoriza tiangela(s) BCBS [employer] [id number] Social History Type Description Quantity Date Captured Comments Alcohol Use Details Unknown Caffeine Use Details Unknown Tobacco Use Status No Information Smoking Status No Information Sex Female Vital Signs Date / Time: Height Weight BMI Pulse Rate Blood Pressure Temperature Respiratory Rate Body Surface Area Head Circumference Head Circ. Percentile Wt./Eliceo. Percentile BMI percentile Pulse Ox Inhaled Ox 10:50 AM 67.50 in 102.965 kg (227.00 lbs) 35.0 3 kg/m eter (2) 63 /min 119/74 mm[Hg] Chief Complaint And Reason For Visit No Information Reason For Referral Reason For Referral No Information History Of Present Illness Encounter Date Complaint History Of Prese nt Illness No Information Functional Status Date Functional Assessmen t No Information Medications Administered Medication Instructions Dosage Effective Dates (start - stop) Status Comments No Drug Therapy Prescribed Instructions Date Instruction Additional Infor mation No Information Assessments Type Assessment Date No Information Patient Care Teams Name Effective Dates (start - stop) Status Members No Information
--- OUTSIDE RECORDS SUMMARY | 2025-02-04 20:36 | XMS_ITS | Clinical Summary ---
Author Organization [facility] Address [address] [place] [address] Care Team Providers Care Threading Machine Operator Name Role Phone Vinnie Goddard MD Primary Care Provider [phone] Allergies Active Allergy Reactions Criticality Noted Date Comments Nickel Rash Low 01/23/2019 Nickel metals - causes rash Medications Acetaminophen (TYLENOL EXTRA STRENGTH OR) Take by mouth as needed. Active hyoscyamine (LEVSIN) 0.125 MG tabletIndications:Sph incter of Oddi dysfunction TAKE 1 TABLET 3-4 TIMES DAILY NEEDED. 360 tablet 3 06/21/20 23 Active ibuprofen (MOTRIN) 800 MG tabletIndications:Chr onic pain syndrome,Chronic pain of left ankle Take 1 tablet (800 mg total) by mouth every 8 (eight) hours as needed. 180 tablet 3 10/17/20 23 Active gabapentin (NEURONTIN) 300 MG capsuleIndications:Ch ronic pain syndrome TAKE 4 CAPSULES BY MOUTH NIGHTLY AT BEDTIME 360 capsule 3 05/27/20 24 Active FLUoxetine (PROZAC) 40 MG capsuleIndications:Mo derate episode of recurrent major depressive disorder (CMS/HCC) Take 1 capsule (40 mg total) by mouth daily. 90 capsule 3 05/27/20 24 Active estradiol (ESTRACE) 0.1 MG/GM vaginal creamIndications:Atro phic vaginitis Place 2 g vaginally 2 (two) times a week. 06/11/20 24 Active vitamin D2, ergocalciferol, (DRISDOL) 1.25 mg capsuleIndications:Vi tamin D deficiency Take 1 capsule (50,000 Units total) by mouth every 7 days. 5 capsule 3 06/11/20 24 Active pantoprazole EC (PROTONIX) 40 MG tabletIndications:Gas troesophageal reflux disease without esophagitis Take 1 tablet (40 mg total) by mouth daily. 90 tablet 2 07/21/20 24 Active valACYclovir (VALTREX) 1 g tabletIndications:Her pes Take 1 tablet (1,000 mg total) by mouth 2 (two) times daily. Prn outbreak 21 tablet 1 08/06/20 24 Active rosuvastatin (CRESTOR) 20 MG tabletIndications:Fam ilial hypercholesteremia Take 1 tablet (20 mg total) by mouth nightly at bedtime. 90 tablet 3 08/06/20 24 025 Active ondansetron (ZOFRAN-ODT) 4 MG disintegrating tabletIndications:Sph incter of Oddi dysfunction DISSOLVE 1 TABLET BY MOUTH EVERY 8 HOURS NEEDED FOR NAUSEA 60 tablet 3 09/30/20 24 Active tiZANidine (ZANAFLEX) 2 MG tabletIndications:Chr onic pain syndrome TAKE 1 TABLET BY MOUTH EVERY 8 HOURS NEEDED. 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 2 each 3 01/07/20 25 Active HYDROcodone-acetamino phen (NORCO) 10-325 MG tabletIndications:Chr onic Pain Take 1 tablet by mouth every 4 (four) hours as needed for Pain. Indications: Chronic Pain 180 tablet 02/04/20 25 Active HYDROcodone-acetamino phen (NORCO) 10-325 MG tabletIndications:Chr onic Pain Take 1 tablet by mouth every 4 (four) hours as needed for Pain. Indications: Chronic Pain 180 tablet 12/10/19 25 025 Discontin ued(Reord er) HYDROcodone-acetamino phen (NORCO) 10-325 MG tabletIndications:Chr onic Pain Take 1 tablet by mouth every 4 (four) hours as needed for Pain. Indications: Chronic Pain 180 tablet 01/07/20 25 025 Discontin ued(Reord er) Active Problems Problem Noted Date Diagnosed Date Severe obesity (BMI 35.0-35.9 with comorbidity) 03/19/2024 Esophageal dysphagia 10/29/2023 Gastroesophageal reflux dise ase, unspecified whether esophagitis present 10/29/2023 Generalized anxiety disorder 06/26/2023 Primary osteoarthritis of both knees 06/26/2023 Gastroesophageal reflux disease without esophagi tis 06/26/2023 Pelvic pain 10/05/2020 History of 2019 novel coronavirus disease (COVID -19) 08/24/2020 Secondary lymphedema 05/12/2020 Eosinophilic esophagitis 02/20/2018 Atopic dermatitis 02/17/2018 Abdominal pain 02/17/2018 Sphincter of Oddi dysfunction 02/17/2018 Hip pain 01/06/2018 Left ankle pain 12/30/2017 Chronic pain 12/16/2017 Depression 12/16/2017 Thyroid nodule 12/16/2017 Vitamin D deficiency 04/03/2014 Overview (06/08/2020): Overview: VITAMIN D DEFICIENCY NOS Pure hypercholesterolemia 04/03/2014 Overview (06/08/2020): Overview: PURE HYPERCHOLESTEROLEM Hypothyroidism 04/03/2014 Overview (06/08/2020): Overview: HYPOTHYROIDISM NOS Resolved Problems Problem Noted Date Diagnosed Date Resolved Date Abnormal uterine bleeding 10/05/2020 Intramural leiomyoma of uterus 10/05/2020 10/05/2020 Encounter for preventive health examination 12/09/2017 07/06/2020 Encounters Date Type Department Care Team Description 12/10/2024 1:00 PM FROZEN FOODS MANAGER Office Visit [facility] Family [facility] [address] [facility], [address] [place] [phone] Vinnie Goddard MD Diarrhea (Did go out Saturday night for a [employer] constitution party. Started Saturday night around midnight. Has been having some loose watery stools); Abdominal Pain (Having some abdominal pain); Fatigue; Headache 12/10/2024 Travel 12/07/2024 MyChart Message Enc [facility] Family [facility] [address] [facility], [address] [place] [phone] Vinnie Goddard MD Sick 2+ days 11/23/2024 MyChart Message Enc [facility] [place] [address] [facility], [address] [place] [address] Vinnie Goddard MD Medication refill from Last 3 Months Immunizations Name Administration Dates Next Due Fluzone 6 Months+ Quad (0.5 mL Prefilled Syringe) 02/08/2021 Hepatitis B 08/05/2006,09/18/2005,07/06/2005 Influenza Adult (Generic) 2023 PFIZER COVID-19 (CAI CAP), MRNA, LNP-S, PF, 30 MCG/0.3 ML KEERTHI-SUCROSE, IM 06/06/2022 PFIZER COVID-19 (ORIGINAL FO RMULATION, PURPLE CAP) mRNA, LNP-S, PF, 30 MCG/0.3 ML DOSE 11/06/2021,11/26/2020,11/05/2020 PFIZER COVID-19 BIVALENT (12 +) mRNA, LNP-S, PF, 30 MCG/0.3 ML DOSE 02/25/2023 Td (Generic) 07/06/2005 Tdap (Adacel) 02/25/2023 Varicella Vaccine 07/06/2005 Family History Medical History Relation Comments Lung Cancer Father Depression Mother Hypertension Mother diverticulitis Mother Asthma Sister Asthma Son 3 Crohns Disease Son 3 Relation Status Comments Brother Alive Father Mother Sister Alive Son 1 Alive Son 2 Alive Son 3 Alive Social History Tobacco Use Types Packs/Day Years Used Date Smoking Tobacco: Never Passive Smoke Exposure: Never Smokeless Tobacco: Never Tobacco Cessation:Counseling Given: No Comments:Never Smoked Alcohol Use Standard Drinks/Week Comments [...] Sexual Orientation Straight 12/10/2024 1: 09 PM FROZEN FOODS MANAGER Last Filed Vital Signs Vital Sign Reading Time Taken Comments Blood Pressure 122/84 12/10/2024 1:10 PM FROZEN FOODS MANAGER Pulse 73 12/10/2024 1:10 PM FROZEN FOODS MANAGER Temperature 35.9 C (96.7 F) 12/10/2024 1:10 PM FROZEN FOODS MANAGER Respiratory Rate 18 12/10/2024 1:10 PM FROZEN FOODS MANAGER Oxygen Saturation 98% 12/10/2024 1:10 PM FROZEN FOODS MANAGER Inhaled Oxygen Concentration - - Weight 98.8 kg (217 lb 12.8 oz) 12/10/2024 1:10 PM FROZEN FOODS MANAGER Height 172.7 cm (5' 8 ) 03/19/2024 2:39 PM CDT Body Mass Index 33.12 03/19/2024 2:39 PM CDT Plan of Treatment Health Maintenance Due Date Last Done Comments Hepatitis C 1984 Zoster Vaccines (1 of 2) 2016 Annual Physical 02/26/2024 02/25/2023 COVID-19 Vaccine ( season) 2024 02/25/2023, 06/06/2022, 11/06/2021, Additional history exists Influenza Adult (#1) 2024 2023, 02/09/20 21 Colorectal Cancer Screening Colonoscopy (10 Years) 04/18/2026 04/18/2016 Mammogram Screening 06/25/2026 06/25/2024, 05/28/2023, 09/30/2018 DTaP, Tdap and Td Vaccines (2 - Td or Tdap) 02/25/2033 02/25/2023, 07/06/2005 Hepatitis B Vaccines Completed 08/05/2006, 09/18/2005, 07/06/2005 PHQ-2 (Physician [place]) Completed 12/10/2024 Meningococcal B Vaccine Aged Out No l onger eligible based on patient's age to complete this topic Meningococcal Vaccine Aged Out No scott beata eligible based on patient's age to complete this topic Pneumococcal Vaccine: Pediatrics (0 to 5 Years) and At-Risk Patients (6 to 64 Years) Aged Out No longer eligible based on patient's age to complete this topic RSV Immunizations Under 20 Months Aged Out No longer eligible based on patient's age to complete this topic Procedures Procedure Name Priority Date/Time Associated Diagnosis Comments MG SCREENING W CHRISTINE HARI DIGI Routine 06/25/2024 9:13 AM CDT Encounter for screening mammogram for malignant neoplasm of breast COLONOSCOPY Routine 04/18/2016 12:00 AM CDT from Last 3 Months or Most Recently Relevant to Health Maintenance Results * MG SCREENING W CHRISTINE HARI DIGI (06/25/2024 9:13 AM CDT) Anatomical Region Laterality Modality Breast Bilateral Mammography 06/25/2024 11:4 6 AM CDT Impressions 06/25/2024 11:48 AM CDT ===== IMPRESSION: ===== 1. Stable mammographic appearance with no new findings to suggest malignancy in either breast. Assessment: ACR BI-RADS 1 - NEGATIVE Recommendation: 1:Routine Screening Bilateral Comments: Ordered By: SINTIA MOJICA Interpreted By: Talib Esquivel, 06/25/2024 11:46 AM Narrative 06/25/2024 11:48 AM CDT EXAMINATION: Digital bilateral screening mammogram with 3-D tomosynthesis EXAM DATE/TIME: 06/25/2024 8:49 AM REASON FOR EXAM: SCREEING Benign left-sided biopsy in 2011. COMPARISON: 09/30/2018. 05/28/2023 Technique: Digital screening mammography of both breasts was performed in addition to 3-D Tomosynthesis technique. This study was read with the assistance of a computer-aided detection system. Tissue density: There are scattered areas of fibroglandular density. Findings: There is no new focal asymmetry, dominant mass lesion, area of skin thickening, or cluster of suspicious appearing calcifications in either breast to suggest malignancy. us Sintia Mojica MD MAMMO Final Result * Colonoscopy (04/18/2016 12:00 AM CDT) 04/18/2016 04/18/2016 Narrative [facility] TO EPIC CONVERSION - 04/18/2016 12:00 AM CDT Documented hx of procedure Procedure Note Michell Coats MD - 09/21/2018 Documented hx of procedure us Generic Jeromy Coats MD GI PROCEDURE ORDERABLES Final Result [facility] TO EPIC CONVERSION from Last 3 Months or Most Recently Relevant to Health Maintenance Insurance [facility] Advance Directives * Full Code (Latest Code Status on File) Date Activated Date Inactivated Comments 10/05/2020 12:53 PM 10/06/2020 1:32 PM Care Teams Threading Machine Operator Relationship Specialty Start Date End Date Vinnie Goddard MD [address] [facility] [address] [place] [address] PCP - General FAMILY PRACTICE 02/17/18
[2025-02-04 20:37] VITALS: BP 128/80; PULSE 77; RESP 16; TEMP 36.5; O2SAT 100
--- NOTE | 2025-02-04 20:42 | ECG_ITS ---
Test Date: 2025-02-04 20:47:00 Measurements Intervals [place] Rate: 70 P: 0 MT: 178 QRS: -17 QRSD: 90 T: 12 QT: 416 QTc: 449 Interpretive Statements SINUS RHYTHM LOW QRS VOLTAGE IN PRECORDIAL LEADS [QRS DEFLECTION < 1.0 mV IN CHEST LEADS] MODERATE VOLTAGE CRITERIA FOR LVH, CONSIDER NORMAL VARIANT [MEETS CRITERIA IN ONE OF: R(aVL), S(V1), R(V5), R(V5/V6)+S(V1)] MINIMAL ST DEPRESSION [0.025+ mV ST DEPRESSION] No previous ECG available for comparison Electronically Signed On 02-05-2025 18:26:21 CDT by Dasha Guerrero M.D.
[2025-02-04 21:00] LABS: Basophils Percent Auto 0.3 % (0.2-1.2); Eosinophils Absolute Auto 0.2 K/mm3 (0-0.3); Eosinophils Percent Auto 2.4 % (0-4.4); Hematocrit 41.7 % (37.0-47.0); Hemoglobin 13.6 g/dL (12.0-15.0); Immature Granulocyte Absolute 0.02 K/mm3 (0.00-0.031); Immature Granulocyte Percent A 0.2 % (0-0.5); Lymphocytes Absolute Auto 0.95 K/mm3 (0.9-3.2); Lymphocytes Percent Auto 10.9 % (18.3-44.2); Mean Corpuscular HGB Conc 32.6 g/dl (32-36); Mean Corpuscular Hemoglobin 28.3 pg (26-34); Mean Corpuscular Volume 86.7 fl (80-100); Mean Platelet Volume 9.7 fl (7.4-10.4); Monocytes Absolute Auto 0.5 K/mm3 (0.1-0.6); Neutrophils Percent Auto 80.2 % (45.5-73.1); Platelet Count Result 319 k/mm3 (150-375); Red Blood Count 4.81 M/mm3 (4.2-5.4); Red Cell Distribution Width 13.4 % (11.5-14.5); White Blood Count 8.7 K/mm3 (4.5-10.0)
[2025-02-04 21:12] LABS: Partial Thromboplastin Time 27.3 Seconds (22.3-36.8); Prothrombin Time 13.4 Seconds (11.1-14.7)
[2025-02-04 21:13] LABS: Alanine Aminotransferase 18 U/L (6-35); Albumin Level 4.9 g/dL (3.5-5.1); Alkaline Phosphatase 86 U/L (38-126); Anion Gap 16 mmol/L (4-12); Aspartate Amino Transferase 24 U/L (14-36); Bilirubin,Total 0.9 mg/dL (0.2-1.3); Blood Urea Nitrogen 16 mg/dL (7-17); Calcium 9.9 mg/dL (8.4-10.2); Carbon Dioxide 19 mmol/L (22-30); Chloride 106 mmol/L (98-107); Estimated CRCL calculation 75 ml/min; Estimated Glomerular Filt Rate > 60; Glucose 113 mg/dL (65-110); Lipase 213 U/L (23-300); Potassium 3.8 mmol/L (3.4-5.0); Sodium 141 mmol/L (137-145)
[2025-02-04 21:39] LABS: Troponin I 0.175 ng/mL (0.000-0.034)
[2025-02-04 22:21] VITALS: PULSE 73
[2025-02-04 22:22] VITALS: BP 143/92; PULSE 75; RESP 16; TEMP 36.4; O2SAT 100
[2025-02-04 22:25] VITALS: O2SAT 100
--- NOTE | 2025-02-04 22:46 | ED.CHESTPAIN ---
HPI - Chest Pain General Chief Complaint: Chest Pain Stated Complaint: Nausea , [id number] Time Seen by Provider: 02/04/25 22:20 History of Present Illness HPI narrative: Patient is a 69-year-old female presents to the ER with chest pain this started earlier today. She reports she ?has not felt the best earlier in the day, but then she had nausea and vomiting this evening. Nausea and vomiting progressed to chest pain and dizziness, which continues on through time of examination. Patient reports her L chest pain radiates to her back. She endorses a history of EOE and diabetes. Patient denies any wheezing, abdominal pain, or recent fevers. Related Data Home Medications ?Medication ?Instructions ?Recorded ?Confirmed ?Last Taken ?Type gabapentin 300 mg capsule 1,200 mg PO QHS 07/26/20 02/05/25 Unknown History hydrocodone 10 mg-acetaminophen 1 tablet PO Q4H PRN pain (scale 07/26/20 02/05/25 Unknown History 325 mg tablet score 4-6) omeprazole 40 mg capsule,delayed 40 mg PO QHS 07/26/20 02/05/25 Unknown History release ondansetron 4 mg disintegrating 4 mg PO Q8H PRN nausea and vomiting 07/26/20 02/05/25 Unknown History tablet fluoxetine 40 mg capsule 40 mg PO QPM 02/05/25 02/05/25 Unknown History tizanidine 2 mg tablet 2 mg PO Q8H PRN muscle spasticity 02/05/25 02/05/25 Unknown History Allergies Allergy/AdvReac Type Severity Reaction Status Date / Time nickel Allergy Intermediate Hives / Verified 02/04/25 22:23 Red Face Review of Systems Review of Systems: All systems reviewed & are unremarkable except as noted in HPI and below PMFSH Past Medical History Medical History Depression Eosinophilic esophagitis Gastroesophageal reflux disease Anxiety Sphincter of Oddi dysfunction Chronic back pain Surgical History Surgical History History of open reduction and internal fixation (ORIF) procedure repair left ankle fracture History of tubal ligation History of cholecystectomy History of hysterectomy Family History Family History Other Asthma Depression Family history of arthritis Family history of chronic obstructive pulmonary disease Family history of hearing loss Family history of hepatitis Family history of lung cancer Family history of mental disorder Family history of osteoporosis Family history of thyroid disease Hypertension Social History Social History Social History: Surrogate medical decision maker: Bridger Whitfield, spouse. Code status: Full code. Smoking status: Never smoker Alcohol intake: never Substance use: never Substance use type: does not use Do You Feel Safe in your Home?: Yes Lack of Transportation: No Lack of Food: Never True Current Housing: I Have Housing Concerned About Future Housing: No Difficulty Paying Gas/Electric Bills: No Difficulty Paying for Meds: No Currently Unemployed: No Education: Bachelor's Degree Difficulty w/ Childcare or Family Care: No Additional living arrangements comments: Lives with spouse in [place]. 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 Spiritual care concerns: No Exam Narrative: GENERAL: Ill-appearing, well-nourished, non-toxic, in no acute distress. HEAD: Normocephalic, atraumatic. NECK: Supple. No adenopathy, no masses. RESPIRATORY: Airway patent, respirations nonlabored. Clear to auscultation bilaterally, no rales, rhonchi, wheezing. CARDIOVASCULAR: Regular rate and rhythm without murmurs, rubs, or gallops. Peripheral pulses 2+ and equal bilaterally. ABDOMINAL: Soft, nontender, nondistended, no hepatosplenomegaly. Normoactive BS. MUSCULOSKELETAL: Moves all extremities. Strength/ROM intact without gross deformities. SKIN: Warm, dry, normal color. No rashes. NEURO: A&O X3. Speech clear. Cranial nerves II-XII intact. No ataxic movements. PSYCHIATRIC: Appropriate mood and affect. Normal interaction. Course Vital Signs Vital signs: Vital Signs Temperature 36.5 C 02/04/25 20:37 Pulse Rate 77 02/04/25 20:37 Respiratory Rate 16 02/04/25 20:37 Blood Pressure 128/80 02/04/25 20:37 Pulse Oximetry 100 02/04/25 20:37 Oxygen Delivery Room Air 02/04/25 20:37 Temperature 37.3 C 02/05/25 00:43 Pulse Rate 86 02/05/25 02:00 Respiratory Rate 18 02/05/25 00:43 Blood Pressure 117/84 02/05/25 00:43 Pulse Oximetry 99 02/05/25 00:43 Oxygen Delivery Room Air 02/04/25 22:25 MDM - Chest Pain MDM Narrative Medical decision making narrative: Patient is a 69-year-old female presents to the ER with chest pain this started earlier today. She reports she ?has not felt the best earlier in the day, but then she had nausea and vomiting this evening. Nausea and vomiting progressed to chest pain and dizziness, which continues on through time of examination. Patient reports her L chest pain radiates to her back. She endorses a history of EOE and diabetes. Patient denies any wheezing, abdominal pain, or recent fevers. Labs Ordered: Troponin, PTT, INR, lipase, CMP, CBC, D-dimer, proBNP Imaging Ordered: Chest x-ray Medications Ordered: 1 L normal saline IV bolus, morphine 4 mg IV, Zofran 4 mg IV, Lovenox 100 mg subQ, nitro sublingual Results: Patient's chest x-ray indicates The cardiomediastinal silhouette is unremarkable. The lungs are clear. Significant gaseous distention of the stomach, possibly related to patient's discomfort. Diagnosis: NSTEMI, chest pain Consults: 0- Spoke with cardiology (Dr. Madera) who agreed with admission. They advised pt be given a dose of Lovenox here in the ER. She would also like the patient to remain NPO after midnight. Patient Education/Shared MDM: Results shared with patient. She will be admitted to the hospital. Pt verbalizes understanding and is in agreement with plan. 0- Spoke with hospitalist who is in agreement with plan for admission. Differential Diagnosis Differential diagnosis: Likely atypical chest pain, st elevation myocardial infarction, costochondritis and chest pain Lab Data Attestation: I reviewed the patient's lab results. 02/04/25 20:54 02/05/25 02:27 Labs: Lab Results 02/04/25 02/04/25 02/04/25 Range/Units 20:52 20:54 23:36 WBC 8.7 (4.5-10.0) K/mm3 RBC 4.81 (4.2-5.4) M/mm3 Hgb 13.6 (12.0-15.0) g/dL Hct 41.7 (37.0-47.0) % MCV 86.7 (80-100) fl MCH 28.3 (26-34) pg MCHC 32.6 (32-36) g/dl RDW 13.4 (11.5-14.5) % Plt Count 319 (150-375) k/mm3 MPV 9.7 (7.4-10.4) fl Immature Gran % (Auto) 0.2 (0-0.5) % Neut % (Auto) 80.2 H (45.5-73.1) % Lymph % (Auto) 10.9 L (18.3-44.2) % [place] % (Auto) 6.0 (2.6-8.5) % Eos % (Auto) 2.4 (0-4.4) % Baso % (Auto) 0.3 (0.2-1.2) % Lymph # (Auto) 0.95 (0.9-3.2) K/mm3 [place] # (Auto) 0.5 (0.1-0.6) K/mm3 Eos # (Auto) 0.2 (0-0.3) K/mm3 Baso # (Auto) 0.0 (0.0-0.1) K/mm3 Abs Immat Gran (auto) 0.02 (0.00-0.031) K/mm3 Absolute Neuts (auto) 7.0 H (1.3-6.7) K/mm3 Absolute Nucleated RBC 0.000 (0.0-0.012) K/mm3 Nucleated RBC % 0.0 (0.0-0.2) % PT 13.4 (11.1-14.7) Seconds INR 1.0 APTT 27.3 (22.3-36.8) Seconds D-Dimer 0.31 (<0.48) ug/mL Sodium 141 (137-145) mmol/L Potassium 3.8 (3.4-5.0) mmol/L Chloride 106 (98-107) mmol/L Carbon Dioxide 19 L (22-30) mmol/L Anion Gap 16 H (4-12) mmol/L BUN 16 (7-17) mg/dL Creatinine 0.87 (0.7-1.0) mg/dL Estim Creat Clear Calc 75 ml/min Estimated GFR > 60 (59 - ) Glucose 113 H (65-110) mg/dL Calcium 9.9 (8.4-10.2) mg/dL Total Bilirubin 0.9 (0.2-1.3) mg/dL AST 24 (14-36) U/L ALT 18 (6-35) U/L Alkaline Phosphatase 86 (38-126) U/L Troponin I 0.175 H* 1.700 H* D (0.000-0.034) ng/mL NT-Pro-B Natriuret Pep 272 H (19.9-100) pg/mL Total Protein 9.0 H (6.3-8.2) g/dL Albumin 4.9 (3.5-5.1) g/dL Lipase 213 (23-300) U/L Imaging Data Attestation: I personally reviewed and interpreted this imaging study as follows: Radiologist's impression: Impressions Chest X-Ray 02/04/25 21:10 IMPRESSION: No focal infiltrate or effusion. Discharge Plan Discharge Clinical Impression: Non-ST elevation myocardial infarction (NSTEMI), Chest pain Patient Disposition: Still a Patient Condition: Serious
--- NOTE | 2025-02-04 22:50 | P.HP_ITS ---
H&P: HPI History of Present Illness Date/Time: 02/04/25 22:50 Chief Complaint: Chest pain. Narrative: This is a very pleasant 59-year-old female with eosinophilic esophagitis and gastroesophageal reflux disease who presented to the emergency department via EMS from home for evaluation of chest pain. The patient provides the following history. Sometime this evening before eating dinner she developed nausea and she tried taking Levsin and Zofran which was of no benefit. She then drank a Jacobs Sprite to help ease her stomach however had several episodes of emesis thereafter. Around the same time she developed a dull but occasionally sharp discomfort in left anterior chest radiating through to the back associated with mild shortness of breath and dizziness. She continues to have intermittent nausea and left-sided chest discomfort. Symptoms are not quite similar to though she has with her GERD and EOE. She denies syncope, near syncope, pleuritic pain, palpitations, hematemesis, edema, and calf pain. No known history of heart disease, ulcers, or pancreatitis. She had a stress test 10 years ago which was unremarkable. No family history of early-onset coronary artery disease. In the ED: Vital signs were stable on arrival. Initial troponin was 0.175. EKG showed a sinus rhythm with minimal ST depressions in V4 through V6. She was given aspirin 324 mg, morphine 4 mg, and nitroglycerin 0.4 mg sublingual. Cardiology was consulted by the ED clinician and they recommend giving her a therapeutic dose of Lovenox and admission for close monitoring. Review of Systems Review of Systems: 12 systems were reviewed and are negativ e except for as per HPI. [facility] Past Medical History Medical History Depression Eosinophilic esophagitis Gastroesophageal reflux disease Anxiety Sphincter of Oddi dysfunction Chronic back pain Surgical History Surgical History History of open reduction and internal fixation (ORIF) procedure repair left ankle fracture History of tubal ligation History of cholecystectomy History of hysterectomy Family History Family History Other Asthma Depression Family history of arthritis Family history of chronic obstructive pulmonary disease Family history of hearing loss Family history of hepatitis Family history of lung cancer Family history of mental disorder Family history of osteoporosis Family history of thyroid disease Hypertension Social History Social History Social History: Surrogate medical decision maker: Bridger Whitfield, spouse. Code status: Full code. Smoking status: Never smoker Substance use: never Additional living arrangements comments: Lives with spouse in [place]. 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 Meds Home Medications and Allergies Home Medications ?Medication ?Instructions ?Recorded ?Confirmed ?Type celecoxib 200 mg capsule mg 07/26/20 History gabapentin 300 mg capsule 07/26/20 History hydrocodone 10 mg-acetaminophen tablet 07/26/20 History 325 mg tablet omeprazole 40 mg capsule,delayed 07/26/20 History release ondansetron 4 mg disintegrating 07/26/20 History tablet Allergies Allergy/AdvReac Type Severity Reaction Status Date / Time nickel Allergy Intermediate Hives / Verified 02/04/25 22:23 Red Face Vital Signs Vital Signs - 24 hr 02/04/25 20:37 02/04/25 22:21 02/04/25 22:22 Temperature 97.7 F 97.6 F Pulse Rate 77 73 75 Respiratory Rate 16 16 Blood Pressure 128/80 143/92 H Pulse Oximetry 100 100 Oxygen Delivery Room Air 02/04/25 22:22 02/04/25 22:25 Temperature Pulse Rate Respiratory Rate Blood Pressure Pulse Oximetry 100 100 Oxygen Delivery Room Air Room Air Exam Narrative: General: Mildly ill-appearing female in the semi-Jewell position in bed. Weight: 97.2 kg. BMI: 32.6. HEENT: PERRL, EOMI. Sclera anicteric. Oral mucosa moist. Neck: Supple. Respiratory: Lungs are clear to auscultation bilaterally. Cardiovascular: Regular rate and rhythm with S1-S2. Gastrointestinal: Abdomen is soft, nontender, and nondistended with positive bowel sounds. Skin: Warm and dry. No rash or lesions on limited exam. Extremities: No cyanosis, clubbing, or edema. Radial and pedal pulses intact. Neurological: Alert. Cranial nerves 2-12 are grossly intact. No gross focal deficits to casual conversation. Psychiatric: Pleasant and cooperative with normal mood and affect. Judgment and insight intact. H&P: Results Labs Labs: Short CBC 02/04/25 Range/Units 20:54 WBC 8.7 (4.5-10.0) K/mm3 Hgb 13.6 (12.0-15.0) g/dL Hct 41.7 (37.0-47.0) % Plt Count 319 (150-375) k/mm3 BMP 02/04/25 20:54 Sodium 141 Potassium 3.8 Chloride 106 Carbon Dioxide 19 L BUN 16 Creatinine 0.87 Glucose 113 H Calcium 9.9 Cardiac Enzymes 02/04/25 Range/Units 20:54 Troponin I 0.175 H* (0.000-0.034) ng/mL Liver Function 02/04/25 Range/Units 20:54 Total Bilirubin 0.9 (0.2-1.3) mg/dL AST 24 (14-36) U/L ALT 18 (6-35) U/L Alkaline Phosphatase 86 (38-126) U/L Albumin 4.9 (3.5-5.1) g/dL Imaging Chest X-Ray 02/04/25 21:10 IMPRESSION: No focal infiltrate or effusion. Assessment and Plan Assessment and plan (1) Non-ST elevation myocardial infarction (NSTEMI): Code(s): I21.4 - Non-ST elevation (NSTEMI) myocardial infarction Status: Acute (2) Gastroesophageal reflux disease: Code(s): K21.9 - Gastro-esophageal reflux disease without esophagitis Status: Acute (3) Eosinophilic esophagitis: Code(s): K20.0 - Eosinophilic esophagitis Status: Acute Plan The patient presented to the emergency department for evaluation of left-sided chest pain radiating through to the back associated with nausea, vomiting, and dizziness as detailed in HPI. Labs, imaging, EKG, and all reports were personally reviewed. Initial troponin was modestly elevated at 0.175 and EKG showed minimal ST depressions in V4 through V6. Cardiology was consulted by the ED provider and they recommend therapeutic dose of Lovenox and request that the patient be NPO after midnight for probable cardiac catheterization tomorrow. Analgesics and antiemetics are available as needed as well as nitroglycerin. Vital signs were reviewed and they are stable. Her home medications will be reviewed and resumed as appropriate. Quality VTE Prophylaxis VTE prophylaxis: pharmacologic ordered Hospitalist MIPS Advance Care Plan I have confirmed that the patient's Advanced Care Plan is present, code status is documented, or surrogate decision maker is listed in patient medical record.: Yes Medication Reconciliation I have utilized all available resources to obtain, update and review the patients current medications (includes all prescriptions, OTC, herbals, cannabis, and nutritional supplements).: Yes
[2025-02-04] MEDS: MORPHINE SULFATE (*CRX) 4 MG/ML INJ IV PUSH (23:03)
[2025-02-04] MEDS: NITROGLYCERIN SL 0.4 MG TABLET SUBLINGUAL (23:05)
--- NOTE | 2025-02-04 23:06 | PC.NURSE ---
Before first nitro tablet: CP7/10, BP 131/76, RR 22, SPO2 100%, HR 81 SR. First tablet given at 2305. At 2310 CP: 5/10, BP 128/85 , RR 23, SPO2 98, HR 93 SR. Patient declines second dose at this time.
[2025-02-04] MEDS: PROMETHAZINE HCL 25 MG/ML AMPUL 12.5 MG IV PUSH (23:09)
--- NOTE | 2025-02-04 23:13 | ECG_ITS ---
Test Date: 2025-02-04 23:21:21 Measurements Intervals [place] Rate: 74 P: 44 MA: 185 QRS: 24 QRSD: 88 T: 31 QT: 406 QTc: 453 Interpretive Statements SINUS RHYTHM POSSIBLE LEFT ATRIAL ENLARGEMENT [-0.1mV P-WAVE IN V1/V2] MINIMAL ST DEPRESSION [0.025+ mV ST DEPRESSION] Compared to ECG 02/04/2025 20:47:00 No significant changes Electronically Signed On 02-05-2025 18:29:04 CDT by Dasha Guerrero M.D.
--- OUTSIDE RECORDS SUMMARY | 2025-02-04 23:16 | XMS_ITS | Encounter Summary ---
Author Organization [facility] Facility Care Team Providers Care Compensation Business Partner Name Role Phone Luc Stevens MD Primary Care Provider + Jasmine Mendoza MD Primary Care Provider [phone] Luc Stevens MD Primary Care Provider + Vinnie Goddard MD Primary Care Provider [phone] Encounter Details Date Type Department Care Team (Latest Contact Info) Description 04/30/2016 Orders Only [facility] CLINCONV ProviderKeon MD [address] [place] [address] Social History Tobacco Use Types Packs/Day Years Used Date Smoking Tobacco: Never Alcohol Use Standard Drinks/Week Comments Yes 0 (1 standard drink = 0.6 oz pur e alcohol) Comments Unknown Sex and Gender Information Value Date Recorded Sex Assigned at Not on file Legal Sex Female 12:39 AM SMOCKER Gender Identity Not on file Sexual Orientation [...] on filedocumented in this encounter Care Teams Compensation Business Partner Relationship Specialty Start Date End Date Luc Stevens MD [address] [place] [address] PCP - General 04/05/17 02/09/18 Jasmine Mendoza MD [address] [place] [address] PCP - General 02/10/18 02/23/18 Luc Stevens MD [address] [place] [address] PCP - General 02/24/18 07/26/20 Vinnie Goddard MD [address] [address] PCP - General Family Practice 07/27/20 documented as of this encounter
--- OUTSIDE RECORDS SUMMARY | 2025-02-04 23:16 | XMS_ITS | Encounter Summary ---
Author Organization [facility] Facility Care Team Providers Care Bag Machine Helper Name Role Phone Luc Stevens MD Primary Care Provider + Jasmine Mendoza MD Primary Care Provider [phone] Luc Stevens MD Primary Care Provider + Vinnie Goddard MD Primary Care Provider [phone] Encounter Details Date Type Department Care Team (Latest Contact Info) Description 07/05/2017 Orders Only [facility] CLINCONV ProviderKeon MD [address] [place] [address] Social History Tobacco Use Types Packs/Day Years Used Date Smoking Tobacco: Never Alcohol Use Standard Drinks/Week Comments Yes 0 (1 standard drink = 0.6 oz pur e alcohol) Comments Unknown Sex and Gender Information Value Date Recorded Sex Assigned at Not on file Legal Sex Female 12:39 AM GOLD MARKER Gender Identity Not on file Sexual Orientation [...] on filedocumented in this encounter Care Teams Bag Machine Helper Relationship Specialty Start Date End Date Luc Stevens MD [address] [place] [address] PCP - General 04/05/17 02/09/18 Jasmine Mendoza MD [address] [place] [address] PCP - General 02/10/18 02/23/18 Luc Stevens MD [address] [place] [address] PCP - General 02/24/18 07/26/20 Vinnie Goddard MD [address] [address] [place] [address] PCP - General Family Practice 07/27/20 documented as of this encounter
--- OUTSIDE RECORDS SUMMARY | 2025-02-04 23:16 | XMS_ITS | Referral Summary ---
Author Organization [facility] Address [address] [place] [address] Care Team Providers Care Natural Resources Faculty Member Name Role Phone Vinnie Goddard MD Primary [...] on file Legal Sex Female 12:39 AM TOWNSHIP SUPERVISOR Gender Identity Not on file Sexual Orientation Not on file Last Filed Vital Signs Vital Sign Reading Time Taken Comments Blood Pressure 126/90 11/01/2017 10:15 AM TOWNSHIP SUPERVISOR Pulse 80 11/01/2017 10:15 AM TOWNSHIP SUPERVISOR Temperature - - Respiratory Rate - - Oxygen Saturation 96% 11/01/2017 10:15 AM TOWNSHIP SUPERVISOR Inhaled Oxygen Concentration - - Weight 108 kg (238 lb) 07/27/2020 10:35 AM CDT Height 172.7 cm (5' 8 ) 07/27/2020 10:35 AM CDT Body Mass Index 36.19 07/27/2020 10:35 AM CDT Plan of Treatment Not on file Insurance [employer] ACCESS Member Subscriber Plan / Payer ( fective 2021-Present) Name:Erika Whitfield Member ID:[id number] Relation to Subscriber:Self Name:Erika Whitfield Subscriber ID:[id number] Payer ID:[id number] (NAIC) Type:[facility] Address: [facility] [address] [place] [address] [employer] ACCESS [facility] ACCESS Care Teams Natural Resources Faculty Member Relationship Specialty Start Date End Date Vinnie Goddard MD [address] [facility] [address] [place], [place] [address] PCP - General Family Practice 07/27/20
--- OUTSIDE RECORDS SUMMARY | 2025-02-04 23:16 | XMS_ITS | Encounter Summary ---
Author Organization [facility] Address [address] [place] [address] Care Team Providers Care Pastry Wrapper Name Role Phone Vinnie Goddard MD Primary Care Provider [phone] Encounter Details Date Type Department Care Team (Late st Contact Info) Description 03/18/2024 MyChart Message Enc [facility] Family Medicine - [place] [address] [facility], [address] [place] [address] Vinnie Goddard MD [address] [facility] [address] [place], [place] [id number] [employer] Social History Tobacco Use Types Packs/Day Years [...] Sexual Orientation Straight 12/10/2024 1: 09 PM BIG DATA DEVELOPER documented as of this encounter Functional Status * RETIRED Are you deaf or do you have serious difficulty hearing Answer Date of Assessment Author Status No 10/05/2020 2:38 PM BIG DATA DEVELOPER Activ e * RETIRED Are you blind or do you have serious difficulty seeing, even when wearing glasses? Answer Date of Assessment Author Status No 10/05/2020 2:38 PM BIG DATA DEVELOPER Activ e * Do you have serious [...] documented as of this encounter Care Teams Pastry Wrapper Relationship Specialty Start Date End Date Vinnie Goddard MD [address] [address] PCP - General FAMILY PRACTICE 02/17/18 documented as of this encounter
--- OUTSIDE RECORDS SUMMARY | 2025-02-04 23:16 | XMS_ITS | Encounter Summary ---
Author Organization [facility] Facility Care Team Providers Care Meat Counter Clerk Name Role Phone Luc Stevens MD Primary Care Provider + Jasmine Mendoza MD Primary Care Provider [phone] Luc Stevens MD Primary Care Provider + Vinnie Goddard MD Primary Care Provider [phone] Encounter Details Date Type Department Care Team (Latest Contact Info) Description 05/07/2016 Orders Only [facility] CLINCONV ProviderKeon MD [address] [place] [address] Social History Tobacco Use Types Packs/Day Years Used Date Smoking Tobacco: Never Alcohol Use Standard Drinks/Week Comments Yes 0 (1 standard drink = 0.6 oz pur e alcohol) Comments Unknown Sex and Gender Information Value Date Recorded Sex Assigned at Not on file Legal Sex Female 12:39 AM SPINNER OPERATOR Gender Identity Not on file Sexual [...] on filedocumented in this encounter Care Teams Meat Counter Clerk Relationship Specialty Start Date End Date Luc Stevens MD [address] [place] [address] PCP - General 04/05/17 02/09/18 Jasmine Mendoza MD [address] [place] [address] PCP - General 02/10/18 02/23/18 Luc Stevens MD [address] [place] [address] PCP - General 02/24/18 07/26/20 Vinnie Goddard MD [address] [address] PCP - General Family Practice 07/27/20 documented as of this encounter
--- OUTSIDE RECORDS SUMMARY | 2025-02-04 23:16 | XMS_ITS | Encounter Summary ---
Author Organization [facility] Facility Care Team Providers Care Defect Repairer Glassware Name Role Phone Luc Stevens MD Primary Care Provider + Jasmine Mendoza MD Primary Care Provider [phone] Luc Stevens MD Primary Care Provider + Vinnie Goddard MD Primary Care Provider [phone] Encounter Details Date Type Department Care Team (Latest Contact Info) Description 11/29/2016 Orders Only [facility] CLINCONV ProviderKeon MD [address] [place] [address] Social History Tobacco Use Types Packs/Day Years Used Date Smoking Tobacco: Never Alcohol Use Standard Drinks/Week Comments Yes 0 (1 standard drink = 0.6 oz pur e alcohol) Comments Unknown Sex and Gender Information Value Date Recorded Sex Assigned at Not on file Legal Sex Female 12:39 AM BLUEPRINTER Gender Identity Not on file Sexual Orientation Not on file documented as of this encounter Plan of Treatment Not on file documented as of this encounter Procedures Procedure Name Priority Date/Time Associated Diagnosis Comments PROCEDURE - RESULT 12/05/2016 12 :00 AM BLUEPRINTER documented in this encounter Results * PROCEDURE - RESULT (12/05/2016 12:00 AM BLUEPRINTER) Narrative 12/05/2016 12:00 AM BLUEPRINTER Ordered by an unspecified provider. us Historical Provider Final Res ult documented in this encounter Visit Diagnoses Not on filedocumented in this encounter Care Teams Defect Repairer Glassware Relationship Specialty Start Date End Date Luc Stevens MD [address] [place] [address] PCP - General 04/05/17 02/09/18 Jasmine Mendoza MD [address] [place] [address] PCP - General 02/10/18 02/23/18 Luc Stevens MD [address] [place] [address] PCP - General 02/24/18 07/26/20 Vinnie Goddard MD [address] [address] PCP - General Family Practice 07/27/20 documented as of this encounter
--- OUTSIDE RECORDS SUMMARY | 2025-02-04 23:16 | XMS_ITS | Clinical Summary ---
Author Organization [facility] Address [address] [place] [address] Care Team Providers Care Machine Inker Name Role Phone Vinnie Goddard MD Primary [...] on file Legal Sex Female 12:39 AM SOLUTION ARCHITECT Gender Identity Not on file Sexual Orientation Not on file Obstetrics History Last Filed Vital Signs Vital Sign Reading Time Taken Comments Blood Pressure 126/90 11/01/2017 10:15 AM SOLUTION ARCHITECT Pulse 80 11/01/2017 10:15 AM SOLUTION ARCHITECT Temperature - - Respiratory Rate - - Oxygen Saturation 96% 11/01/2017 10:15 AM SOLUTION ARCHITECT Inhaled Oxygen Concentration - - Weight 108 [...] to complete this topic Insurance [employer] ACCESS Member Subscriber Plan / Payer ( fective 2021-Present) Name:Erika Whitfield Member ID:[id number] Relation to Subscriber:Self Name:Erika Whitfield Subscriber ID:[id number] Payer ID:[id number] (NAIC) Type:[facility] Address: [address] [place] [address] [employer] ACCESS Member Subscriber Plan / Payer ( fective 2021-Present) Name:Erika Whitfield Member ID:[id number] Relation to Subscriber:Self Name:Erika Whitfield Subscriber ID:[id number] Payer ID:[id number] (NAIC) Type:[facility] Address: [address] [place] [address] [employer] ACCESS Care Teams Machine Inker Relationship Specialty Start Date End Date Vinnie Goddard MD [address] [facility] [address] [place] [address] PCP - General Family Practice 07/27/20
--- OUTSIDE RECORDS SUMMARY | 2025-02-04 23:16 | XMS_ITS | Encounter Summary ---
Author Organization [facility] Address [address] [place] [address] Care Team Providers Care Kiln Repairer Name Role Phone Vinnie Goddard MD Primary Care Provider [phone] Encounter Details Date Type Department Care Team (Late st Contact Info) Description 09/30/2020 Prep for Procedure [facility] [place] [address] Sintia Sanchez MD [address] [place] [address] Social History Tobacco Use Types [...] Sexual Orientation Straight 12/10/2024 1: 09 PM SALES ASSISTANT COVID-19 Exposure Response Date Recorded In the last month, have you been in contact with someone who was confirmed or suspected to have Coronavirus / COVID-19? No / Unsure 10/03/2020 10:57 AM SALES ASSISTANT documented as of this encounter Plan of Treatment Not on file documented as of this encounter Results * (ABNORMAL) CBC W/DIFF AUTOMATED (10/03/2020 11:25 AM SALES ASSISTANT) WBC 4.7 4.5 - 11.0 x10'3/uL 10/03/2020 12:12 PM [facility] RBC 4.49 4.20 - 5.40 x10'6/uL 10/03/2020 12:12 PM [facility] HGB 12.2 12.0 - 16.0 G/DL 10/03/2020 12:12 PM [facility] HCT 39.8 38.0 - 48.0 % 10/03/2020 12:12 PM [facility] MCV 88.6 80.0 - 94.0 FL 10/03/2020 12:12 PM [facility] MCH 27.2 27.0 - 31.0 PG 10/03/2020 12:12 PM [facility] MCHC 30.7(L) 32.0 - 36.0 G/DL 10/03/2020 12:12 PM [facility] RDW 12.5 11.5 - 14.5 % 10/03/2020 12:12 PM [facility] PLT 271 130 - 400 x10'3/uL 10/03/2020 12:12 PM [facility] MPV 9.8 9.3 - 12.2 FL 10/03/2020 12:12 PM [facility] DIFFERENTIAL TYPE AUTOMATED DIFFERENTIAL 10/03/2020 12:12 PM [facility] NEUTROPHILS % 55.2 % 10/03/2020 12:12 PM [facility] LYMPHOCYTES % 32.0 % 10/03/2020 12:12 PM [facility] MONOCYTES % 6.0 % 10/03/2020 12:12 PM [facility] EOSINOPHILS 5.3 % 10/03/2020 12:12 PM SALES ASSISTANT [facility] BASOPHILS 1.1 % 10/03/2020 12:12 PM SALES ASSISTANT [facility] IMMATURE GRANS % 0.4 % 10/03/20 20 12:12 PM SALES ASSISTANT [facility] ABS. NEUTROPHILS TOTAL 2.59 1.80 - 7.70 x10'3/uL 10/03/2020 12:12 PM SALES ASSISTANT [facility] ABS. LYMPHOCYTES 1.50 1.00 - 4.80 x10'3/uL 10/03/2020 12:12 PM SALES ASSISTANT [facility] ABS. MONOCYTES 0.28 0.24 - 0.86 x10'3/uL 10/03/2020 12:12 PM SALES ASSISTANT [facility] ABS. EOSINOPHILS 0.25 0.04 - 0.36 x10'3/uL 10/03/2020 12:12 PM SALES ASSISTANT [facility] ABS. BASOPHILS 0.05 0.01 - 0.08 x10'3/uL 10/03/2020 12:12 PM SALES ASSISTANT [facility] ABS. IMMATURE GRANULOCYTES 0.02 0.00 - 0.49 x10'3/uL 10/03/2020 12:12 PM [facility] 10/03/2020 11:2 5 AM SALES ASSISTANT Sintia Sanchez MD LABORATORY Final Result [facility] [address] [place] [address], * TYPE & SCREEN (10/03/2020 11:25 AM SALES ASSISTANT) ABO/RH A NEGATIVE 10/03/2020 2:25 PM SALES ASSISTANT [facility] ANTIBODY SCREEN NEGATIVE 10/03/2020 2:25 PM SALES ASSISTANT [facility] SAMPLE EXPIRATION 10/08/2020,2 359 10/05/2020 9:02 AM SALES ASSISTANT [facility] COMMENT NO HISTORY OF TRANSFUSIONS , OR ANTIBODIES, NEW SPECIMEN NOT NEEDED 10/05/2020 9:02 AM SALES ASSISTANT [facility] 10/03/2020 11:2 5 AM SALES ASSISTANT us Sintia Sanchez MD BLOOD BANK TEST ORDERABLES Final Result [facility] [address] [place] [address], documented in this encounter Visit Diagnoses Diagnosis Preop examination- Primary Preoperative examination, unspecified Pelvic pain documented in this encounter Additional Health Concerns Infection Onset Date Last Indicated Resolved Time COVID-19 Confirmed 08/01/2020 08/01/2020 0 12:32 AM SALES ASSISTANT COVID-19 Rule Out 09/11/2021 09/11/2021 09/12/2021 2:29 PM CDT documented as of this encounter Care Teams Kiln Repairer Relationship Specialty Start Date End Date Vinnie Goddard MD [address] [facility] [address] [place] [address] PCP - General FAMILY PRACTICE 02/17/18 documented as of this encounter
--- OUTSIDE RECORDS SUMMARY | 2025-02-04 23:16 | XMS_ITS | Encounter Summary ---
Author Organization [facility] Facility Care Team Providers Care Business Services Associate Name Role Phone Luc Stevens MD Primary Care Provider + Jasmine Mendoza MD Primary Care Provider [phone] Luc Stevens MD Primary Care Provider + Vinnie Goddard MD Primary Care Provider [phone] Encounter Details Date Type Department Care Team (Latest Contact Info) Description 08/19/2017 Orders Only [facility] CLINCONV ProviderKeon MD [address] [place] [address] Social History Tobacco Use Types Packs/Day Years Used Date Smoking Tobacco: Never Alcohol Use Standard Drinks/Week Comments Yes 0 (1 standard drink = 0.6 oz pur e alcohol) Comments Unknown Sex and Gender Information Value Date Recorded Sex Assigned at Not on file Legal Sex Female 12:39 AM HOG RAISER Gender Identity Not on file Sexual Orientation [...] on filedocumented in this encounter Care Teams Business Services Associate Relationship Specialty Start Date End Date Luc Stevens MD [address] [place] [address] PCP - General 04/05/17 02/09/18 Jasmine Mendoza MD [address] [place] [address] PCP - General 02/10/18 02/23/18 Luc Stevens MD [address] [place] [address] PCP - General 02/24/18 07/26/20 Vinnie Goddard MD [address] [address] PCP - General Family Practice 07/27/20 documented as of this encounter
--- OUTSIDE RECORDS SUMMARY | 2025-02-04 23:16 | XMS_ITS | Encounter Summary ---
Author Organization [facility] - [facility] Address [facility] [place] [address] Care Team Providers Care Prestidigitator Name Role Phone Vinnie Goddard MD Primary Care Provider [phone] Encounter Details Date Type Department Care Team (Late st Contact Info) Description 07/03/2023 Togic Software Message Enc [facility] Family Medicine [place] [id number] [facility], [address] [place] [address] Carlos, [facility] Provider ENT Social History Tobacco Use Types [...] Sexual Orientation Straight 12/10/2024 1: 09 PM GEOSCIENCES PROFESSOR documented as of this encounter Functional Status * RETIRED Are you deaf or do you have serious difficulty hearing Answer Date of Assessment Author Status No 10/05/2020 2:38 PM GEOSCIENCES PROFESSOR Activ e * RETIRED Are you blind or do you have serious difficulty seeing, even when wearing glasses? Answer Date of Assessment Author Status No 10/05/2020 2:38 PM GEOSCIENCES PROFESSOR Activ e * Do you have serious [...] documented as of this encounter Care Teams Prestidigitator Relationship Specialty Start Date End Date Vinnie Goddard MD [address] [address] PCP - General FAMILY PRACTICE 02/17/18 documented as of this encounter
--- OUTSIDE RECORDS SUMMARY | 2025-02-04 23:16 | XMS_ITS | Encounter Summary ---
Author Organization [facility] Address [address] [place] [address] Care Team Providers Care X Ray Technician Name Role Phone Vinnie Goddard MD Primary Care Provider [phone] Encounter Details Date Type Department Care Team (Late st Contact Info) Description 12/07/2024 MyChart Message Enc [facility] Medical Group Family Medicine - [place] [address] [facility], [address] [place] [address] Vinnie Goddard MD [address] [facility] [address] [facility] [address] [place], [place] [id number] Sick 2+ days Social History Tobacco Use [...] Sexual Orientation Straight 12/10/2024 1: 09 PM CUSTOMER FACILITIES SUPERVISOR documented as of this encounter Functional Status * RETIRED Are you deaf or do you have serious difficulty hearing Answer Date of Assessment Author Status No 10/05/2020 2:38 PM CUSTOMER FACILITIES SUPERVISOR Activ e * RETIRED Are you blind or do you have serious difficulty seeing, even when wearing glasses? Answer Date of Assessment Author Status No 10/05/2020 2:38 PM CUSTOMER FACILITIES SUPERVISOR Activ e * Do you have serious [...] documented as of this encounter Care Teams X Ray Technician Relationship Specialty Start Date End Date Vinnie Goddard MD [address] [address] PCP - General FAMILY PRACTICE 02/17/18 documented as of this encounter
--- OUTSIDE RECORDS SUMMARY | 2025-02-04 23:16 | XMS_ITS | Clinical Summary ---
Author Organization [facility] Address [address] [place] [address] Care Team Providers Care Harness Mender Name Role Phone Vinnie Goddard MD Primary Care Provider [phone] Allergies Active Allergy Reactions Criticality Noted Date [...] 24 Active naloxone (NARCAN) 4 MG/0.1ML nasal sprayIndications:Investigator Narcotics hermes pain syndrome,Chronic pain of left ankle [...] Department Care Team Description 12/10/2024 1:00 PM HEEL BREASTER Office Visit [facility] [address] [facility], [address] [place] [address] Vinnie Goddard MD Diarrhea (Did go out Saturday night for a [place] [employer] party. Started Saturday night around midnight. Has been having some loose watery stools); Abdominal Pain (Having some abdominal pain); Fatigue; Headache 12/10/2024 Travel 12/07/2024 MyChart Message Enc [facility] Family [facility] [place] [address] [facility], [address] [place] [address] Vinnie Goddard MD Sick 2+ days 11/23/2024 MyChart Message Enc [facility] Family [facility] [place] [address] [facility], [address] [place] [address] Vinnie Goddard MD Medication refill [...] Sexual Orientation Straight 12/10/2024 1: 09 PM HEEL BREASTER Last Filed Vital Signs Vital Sign Reading Time Taken Comments Blood Pressure 122/84 12/10/2024 1:10 PM HEEL BREASTER Pulse 73 12/10/2024 1:10 PM HEEL BREASTER Temperature 35.9 C (96.7 F) 12/10/2024 1:10 PM HEEL BREASTER Respiratory Rate 18 12/10/2024 1:10 PM HEEL BREASTER Oxygen Saturation 98% 12/10/2024 1:10 PM HEEL BREASTER Inhaled Oxygen Concentration - - Weight 98.8 kg (217 lb 12.8 oz) 12/10/2024 1:10 PM HEEL BREASTER Height 172.7 cm (5' 8 ) 03/19/2024 [...] Vaccines Completed 08/05/2006, 09/18/2005, 07/06/2005 PHQ-2 (Physician [place]) Completed 12/10/2024 Meningococcal B Vaccine Aged Out [...] Recommendation: 1:Routine Screening Bilateral Comments: Ordered By: MAYRA MOJICA Interpreted By: Talib Esquivel, 06/25/2024 11:46 [...] in either breast to suggest malignancy. us Mayra Mojica MD MAMMO Final Result * Colonoscopy (04/18/2016 12:00 AM CDT) 04/18/2016 04/18/2016 Narrative [facility] TO EPIC CONVERSION - 04/18/2016 12:00 AM CDT Documented hx of procedure Procedure Note Michell Connell MD - 09/21/2018 Documented hx of procedure us Generic Conversion Md CONNELL GI PROCEDURE ORDERABLES Final Result [facility] TO EPIC CONVERSION from Last 3 Months or Most Recently Relevant to Health Maintenance Insurance [facility] Advance Directives * Full Code (Latest Code Status on File) Date Activated Date Inactivated Comments 10/05/2020 12:53 PM 10/06/2020 1:32 PM Care Teams Harness Mender Relationship Specialty Start Date End Date Vinnie Goddard MD [address] [address] PCP - General FAMILY PRACTICE 02/17/18
--- OUTSIDE RECORDS SUMMARY | 2025-02-04 23:16 | XMS_ITS | Encounter Summary ---
Author Organization [facility] Facility Care Team Providers Care Wireless Sales Consultant Name Role Phone Luc Stevens MD Primary Care Provider + Jasmine Mendoza MD Primary Care Provider [phone] Luc Stevens MD Primary Care Provider + Vinnie Goddard MD Primary Care Provider [phone] Encounter Details Date Type Department Care Team (Latest Contact Info) Description 05/28/2016 Orders Only [facility] CLINCONV ProviderKeon MD [address] [place] [address] Social History Tobacco Use Types Packs/Day Years Used Date Smoking Tobacco: Never Alcohol Use Standard Drinks/Week Comments Yes 0 (1 standard drink = 0.6 oz pur e alcohol) Comments Unknown Sex and Gender Information Value Date Recorded Sex Assigned at Not on file Legal Sex Female 12:39 AM CLIENT SUPPORT REPRESENTATIVE Gender Identity Not on file Sexual Orientation [...] on filedocumented in this encounter Care Teams Wireless Sales Consultant Relationship Specialty Start Date End Date Luc Stevens MD [address] [place] [address] PCP - General 04/05/17 02/09/18 Jasmine Mendoza MD [address] [place] [address] PCP - General 02/10/18 02/23/18 Luc Stevens MD [address] [place] [address] PCP - General 02/24/18 07/26/20 Vinnie Goddard MD [address] [address] PCP - General Family Practice 07/27/20 documented as of this encounter
--- OUTSIDE RECORDS SUMMARY | 2025-02-04 23:16 | XMS_ITS | Encounter Summary ---
Author Organization [facility] Facility Care Team Providers Care Sampling Theory Teacher Name Role Phone Luc Stevens MD Primary Care Provider + Jasmine Mendoza MD Primary Care Provider Luc Stevens MD Primary Care Provider + Vinnie Goddard MD Primary Care Provider [phone] Encounter Details Date Type Department Care Team (Latest Contact Info) Description 05/25/2016 Orders Only [facility] CLINCONV ProviderKeon MD [address] [place] [address] Social History Tobacco Use Types Packs/Day Years Used Date Smoking Tobacco: Never Alcohol Use Standard Drinks/Week Comments Yes 0 (1 standard drink = 0.6 oz pur e alcohol) Comments Unknown Sex and Gender Information Value Date Recorded Sex Assigned at Not on file Legal Sex Female 12:39 AM NAIL KEGGER Gender Identity Not on file Sexual Orientation [...] on filedocumented in this encounter Care Teams Sampling Theory Teacher Relationship Specialty Start Date End Date Luc Stevens MD [address] [place] [address] PCP - General 04/05/17 02/09/18 Jasmine Mendoza MD [address] [place] [address] PCP - General 02/10/18 02/23/18 Luc Stevens MD [address] [place] [address] PCP - General 02/24/18 07/26/20 Vinnie Goddard MD [address] [address] PCP - General Family Practice 07/27/20 documented as of this encounter
--- OUTSIDE RECORDS SUMMARY | 2025-02-04 23:16 | XMS_ITS | Encounter Summary ---
Author Organization [facility] Address [address] [place] [address] Care Team Providers Care Residential Director Name Role Phone Vinnie Goddard MD Primary Care Provider [phone] Encounter Details Date Type Department Care Team (Late st Contact Info) Description 07/27/2024 MyCBuyMyHomet Message Enc [facility] Family Medicine - [place] [address] [facility], [address] [place] [address] Vinnie Goddard MD [address] [facility] [address] [place], [place] [phone] Surgery Social History Tobacco Use Types Packs/Day [...] Sexual Orientation Straight 12/10/2024 1: 09 PM HEAD OF ACADEMIC TECHNOLOGY documented as of this encounter Functional Status * RETIRED Are you deaf or do you have serious difficulty hearing Answer Date of Assessment Author Status No 10/05/2020 2:38 PM HEAD OF ACADEMIC TECHNOLOGY Activ e * RETIRED Are you blind or do you have serious difficulty seeing, even when wearing glasses? Answer Date of Assessment Author Status No 10/05/2020 2:38 PM HEAD OF ACADEMIC TECHNOLOGY Activ e * Do you have serious [...] documented as of this encounter Care Teams Residential Director Relationship Specialty Start Date End Date Vinnie Goddard MD [address] [facility] [address] [place] [address] PCP - General FAMILY PRACTICE 02/17/18 documented as of this encounter
--- OUTSIDE RECORDS SUMMARY | 2025-02-04 23:16 | XMS_ITS | Encounter Summary ---
Author Organization [facility] Address [address] [place] [address] Care Team Providers Care Dining Room Supervisor Name Role Phone Vinnie Goddard MD Primary Care Provider [phone] Encounter Details Date Type Department Care Team (Late st Contact Info) Description 08/06/2024 MyChart Message Enc [facility] Medical Group Family Medicine - [place] [address] [facility], [address] [place] [address] Vinnie Goddard MD [address] [facility] [address] [place], [place] [phone] Follow up from surgery Social History Tobacco [...] Sexual Orientation Straight 12/10/2024 1: 09 PM RECORDING STUDIO INTERNSHIP documented as of this encounter Functional Status * RETIRED Are you deaf or do you have serious difficulty hearing Answer Date of Assessment Author Status No 10/05/2020 2:38 PM RECORDING STUDIO INTERNSHIP Activ e * RETIRED Are you blind or do you have serious difficulty seeing, even when wearing glasses? Answer Date of Assessment Author Status No 10/05/2020 2:38 PM RECORDING STUDIO INTERNSHIP Activ e * Do you have serious [...] documented as of this encounter Care Teams Dining Room Supervisor Relationship Specialty Start Date End Date Vinnie Goddard MD [address] [address] PCP - General FAMILY PRACTICE 02/17/18 documented as of this encounter
--- OUTSIDE RECORDS SUMMARY | 2025-02-04 23:16 | XMS_ITS | Encounter Summary ---
Author Organization [facility] Facility Care Team Providers Care Mechanic Chief Name Role Phone Luc Stevens MD Primary Care Provider + Jasmine Mendoza MD Primary Care Provider [phone] Luc Stevens MD Primary Care Provider + Vinnie Goddard MD Primary Care Provider [phone] Encounter Details Date Type Department Care Team (Latest Contact Info) Description 07/11/2017 Orders Only [facility] CLINCONV ProviderKeon MD [address] [place] [address] Social History Tobacco Use Types Packs/Day Years Used Date Smoking Tobacco: Never Alcohol Use Standard Drinks/Week Comments Yes 0 (1 standard drink = 0.6 oz pur e alcohol) Comments Unknown Sex and Gender Information Value Date Recorded Sex Assigned at Not on file Legal Sex Female 12:39 AM 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
--- OUTSIDE RECORDS SUMMARY | 2025-02-04 23:16 | XMS_ITS | Continuity of Care Document ---
Author Organization [facility] Address [address] [place] [address] Phone Care Team Providers Care Head Of Loss Prevention Name Role Phone Brian Sales MD Unavailable Unavailable Medications Medication Instructions Dosage Effective Dates (start - stop) Status Comments Dymista 137 mcg-50 mcg/spray nasal spray 1 spray by intranasal route 2 times every day in each nostril - Active MEMBER: ESTHER, GROUP: [id number], RxBIN: [id number], ID: [id number] pantoprazole 40 mg tablet,delayed release take 1 [...] Diagnoses Date Provider Providers [facility], [address], [place], [place], [id number] , [place] tel: [phone] [place] [facility] Eosinophilic esophagitisChronic rhinitis 6 Hen[address]. [address], [id number] , [place]. tel: [phone] Referring Provider: Enzo Saleem, [facility] [address], [place], [address]. tel:[phone] Family History Family Member Type Diagnosis Age At Onset No Information Payers Payer name Insurance type Covered green party ID Authoriza tiangela(s) [employer] [id number] Social History Type Description Quantity Date [...]
[2025-02-04 23:20] LABS: NT Pro B Type Natriuretic Pept 272 pg/mL (19.9-100)
[2025-02-04 23:22] LABS: D Dimer 0.31 ug/mL (<0.48)
[2025-02-04] MEDS: ENOXAPARIN 100 MG/ML SYRINGE SUB-Q (23:37)
[2025-02-05] VITALS (30 sets, daily range): BP systolic 99–126; BP diastolic 60–84; PULSE 75–879; RESP 18–27; TEMP 36.4–38.1; O2SAT 92–100; BMI 33.7
--- NOTE | 2025-02-05 | ECHO_ITS ---
Patient Info Name: Erika Whitfield Age: 59 years : 1965 Gender: Female Ht: 68 in Wt: 222 lbs BSA: 2.23 m2 HR: 88 bpm BP: 108 / 72 mmHg Heart Rhythm: Sinus Arrhythmia Technical Quality: Fair Exam Date: 02/05/2025 3:17 PM Exam Location: Echo Lab Patient Status: Inpatient Admit Date: 02/05/2025 Staff Ordering Physician: Dasha Guerrero MD (alo/lilly) Color Tester: Sailaja Adler RDCS Attending Provider: Joshua Aguayo MD Referring Physician: Cesar CHAN; Exam Type: CA echo dop color flow w con Study Info Indications - NSTEMI Complete two-dimensional, color flow and Doppler transthoracic echocardiogram is performed with contrast to opacify the left ventricle and to improve the deliniation of the left ventricle endocardial borders. Summary 1. Left ventricular chamber dimension is normal. 2. There is mildly increased left ventricular wall thickness. 3. Left ventricular systolic function is normal, estimated at 50-55%. 4. The anteroseptum is hypokinetic. Inferoseptum is hypokinetic. 5. Right ventricular systolic function is normal. 6. There is mild mitral valve regurgitation. 7. There is mild tricuspid valve regurgitation. Left Ventricle Left ventricular chamber dimension is normal. Left ventricular systolic function is normal, estimated at 50-55%. The anteroseptum is hypokinetic. Inferoseptum is hypokinetic. There is mildly increased left ventricular wall thickness. The left ventricular diastolic function is grade I diastolic dysfunction. Right Ventricle Right ventricular chamber dimension is normal. Right ventricular systolic function is normal. Left Atria Left atrial chamber dimension is normal. Right Atria Right atrial chamber dimension is normal. Aortic Valve The aortic valve is not well visualized. There is no aortic valve stenosis. There is no aortic valve regurgitation. There is mild aortic valve calcification. Pulmonic Valve The pulmonic valve is not well visualized. Mitral Valve There is mild mitral valve regurgitation. Tricuspid Valve There is mild tricuspid valve regurgitation. Pericardium/Pleural The pericardium appears epicardial fat pad. There is no pericardial effusion. Inferior Vena Cava Inferior vena cava is not well visualized. Aorta The aortic root size at the sinus of Valsalva is normal. Left Ventricular Outflow Tract Name Value Normal LVOT 2D LVOT Diameter 1.96 cm LVOT Doppler LVOT Peak Gradient 5 mmHg LVOT Mean Gradient 2 mmHg LVOT VTI 18.95 cm LVOT VTI/AV VTI Ratio 0.68 LVOT Stroke Volume 57.00 ml LVOT CO 5.03 l/min LVOT CI 2.25 L/min/m2 Pulmonic Valve Name Value Normal RVOT Doppler RVOT Peak Gradient 2 mmHg PV Doppler PV Peak Gradient 3 mmHg Mitral Valve Name Value Normal MV Doppler MV Decel [place] 412.57 cm/s2 MV PHT 0 s MV Area (PHT) 4.87 cm2 4.00-5.00 MV Diastolic Function MV E Peak Velocity 64.25 cm/s MV A Peak Velocity 67.43 cm/s MV E/A 0.95 MV Decel Time 0 s MV Annular TDI MV E/e' (Septal) 9.06 <=8.00 MV E/e' (Lateral) 6.40 <=8.00 MV E/e' (Average) 7.73 Tricuspid Valve Name Value Normal TV Regurgitation Doppler TR Peak Velocity 334.76 cm/s TR Peak Gradient 45 mmHg Aortic Valve Name Value Normal AV Doppler AV Peak Velocity 155.44 cm/s AV Peak Gradient 10 mmHg AV Mean Gradient 5 mmHg AV VTI 27.79 cm AV Area (Cont Eq VTI) 2.05 cm2 >=3.00 AV Area (Cont Eq Mauri) 2.11 cm2 AV Regurgitation 2D LVOT Area 3.01 cm2 Ventricles Name Value Normal LV Dimensions 2D/MM IVS Diastolic Thickness (2D) 1.05 cm 0.60-1.00 LVID Diastole (2D) 4.91 cm 3.80-5.20 LVIW Diastolic Thickness (2D) 0.81 cm 0.60-0.90 LVID Systole (2D) 3.36 cm 2.20-3.50 LVOT Diameter 1.96 cm LV Mass (2D Cubed) 160.54 g 67.00-162.00 LV Mass Index (2D Cubed) 0.01 g/cm2 0.00-0.01 Relative Wall Thickness (2D) 0.33 LV Fractional Shortening/Ejection Fraction 2D/MM LV Fractional Shortening (2D) 32 % 27-45 LV EF (2D Teicholz) 59 % 54-74 LV Diastolic Volume (4C MOD) 174.20 ml LV EF (4C MOD) 53 % LV Diastolic Volume (2C MOD) 182.02 ml LV EF (2C MOD) 58 % LV Diastolic Volume (BP MOD) 185.63 ml 46.00-106.00 LV Diastolic Volume Index (BP MOD) 0.08 l/m2 0.03-0.06 LV Systolic Volume (BP MOD) 79.53 ml 14.00-42.00 LV Systolic Volume Index (BP MOD) 0.04 l/m2 0.01-0.02 LV EF (BP MOD) 57 % 54-74 LV Diastolic Length (4C) 9.39 cm LV Systolic Length (4C) 8.03 cm LV Stroke Volume (4C MOD) 91.71 ml Atria Name Value Normal LA Dimensions LA Volume (4C A-L) 71.83 ml LA Volume (BP A-L) 72.45 ml RA Dimensions RA Area (4C) 18.48 cm2 <=18.00 Report Signatures
--- NOTE | 2025-02-05 00:10 | PC.NURSE ---
At 2350 patient was given a second nitro tablet. At 0000 patient states no more relief with nitro tablet. BP 101/61, HR 70 NSR, RR 21, 99% on RA. No third tablet given.
--- NOTE | 2025-02-05 00:44 | ADMGEN ---
This patient, Erika Whitfield, was admitted to IMU Room 213-01. Patient/family oriented to hospital policies and general routines including ID bracelet, bed and alarms, visiting hours, pain management, procedures, bathroom and other care routines, personal items, smoking policy, room service/diet, and visiting hours. Information on how to activate the Rapid Response Team has been discussed. Patient/Family are encouraged to report perceived risks to care and to ask questions if they do not understand what they are told or what they should do.
[2025-02-05] MEDS: MORPHINE SULFATE (*CRX) 2 MG/ML INJ IV PUSH ×2 (01:30→06:35)
[2025-02-05] MEDS: NITROGLYCERIN OINTMENT 1 INCH DOSE 0.5 INCH TRANSDERM (01:30)
--- NOTE | 2025-02-05 01:30 | ECG_ITS ---
Test Date: 2025-02-05 02:21:34 Measurements Intervals [place] Rate: 77 P: 46 [place]: 192 QRS: 53 QRSD: 109 T: 36 QT: 403 QTc: 457 Interpretive Statements SINUS RHYTHM MINIMAL ST DEPRESSION WARNING: DATA QUALITY MAY AFFECT INTERPRETATION Compared to ECG 02/04/2025 23:21:21 NO SIGNIFICANT CHANGES Electronically Signed On 02-05-2025 18:30:44 CDT by Dasha Guerrero M.D.
[2025-02-05 03:10] LABS: Anion Gap 14 mmol/L (4-12); Blood Urea Nitrogen 19 mg/dL (7-17); Calcium 9.4 mg/dL (8.4-10.2); Carbon Dioxide 19 mmol/L (22-30); Chloride 108 mmol/L (98-107); Cholesterol 298 mg/dL (0-200); Estimated CRCL calculation 84 ml/min; Estimated Glomerular Filt Rate > 60; Glucose 132 mg/dL (65-110); HDL Direct 74 mg/dL; Magnesium 1.8 mg/dL (1.6-2.3); Potassium 4.1 mmol/L (3.4-5.0); Sodium 141 mmol/L (137-145); Triglycerides 151 mg/dL (<150)
[2025-02-05 03:19] LABS: LDL Cholesterol Direct 79 mg/dL
--- NOTE | 2025-02-05 04:38 | PC.NURSE ---
This patient, Erika Whitfield, was transferred to [ICU 2 ] on 02/05/25 at 0439. Personal belongings sent with patient. Report given to [Sandra ramirez ]. Appropriate documentation sent with patient.
[2025-02-05] MEDS: NITROGLYCERIN/D5W 200 MCG/ML 50 MG/250 ML BTL 9 MG IV CONT (04:46)
--- NOTE | 2025-02-05 05:03 | PC.NURSE ---
Patient transferred via bed at 0430. Report received from HARPAL Wynn.
[2025-02-05] MEDS: ACETAMINOPHEN 325 MG TABLET 650 MG PO (05:33)
[2025-02-05] MEDS: ONDANSETRON INJ 4 MG/2 ML VIAL IV PUSH ×2 (06:39→17:13)
[2025-02-05] MEDS: PANTOPRAZOLE 40 MG TABLET PO ×2 (08:27→17:11)
--- NOTE | 2025-02-05 09:09 | PC.NURSE ---
To cardiac lab specialist per bed.
--- NOTE | 2025-02-05 09:25 | WPDCNINT ---
Assessment and Plan Assessment and plan (1) Non-ST elevation myocardial infarction (NSTEMI): Code(s): I21.4 - Non-ST elevation (NSTEMI) myocardial infarction Status: Acute Assessment and Plan: 02/04/2025: Patient presented with left-sided chest pain, radiated to the back, the jaw and the left arm. Associated with dizziness, shortness of breath, nausea and vomiting -troponins 0.175--> 1.700 --> 2.400. -patient was in the intermediate Unit and was transferred to the ICU for nitroglycerin infusion due to ongoing chest pain -patient did receive aspirin and therapeutic Lovenox in the ER -cardiology evaluated the patient this morning, and have decided to take the patient to cardiac chemical laboratory assistant for an angiogram unlikely PTCA/PCI if needed -patient was hemodynamically stable (2) Gastroesophageal reflux disease: Code(s): K21.9 - Gastro-esophageal reflux disease without esophagitis Status: Acute Assessment and Plan: Continue Protonix q.12 hours (3) RUPALI (generalized anxiety disorder): Code(s): F41.1 - Generalized anxiety disorder Status: Acute Assessment and Plan: Continue fluoxetine Plan DVT prophylaxis: Lovenox Stress ulcer prophylaxis: Protonix Nutrition: NPO Code Status: Full code Critical Care Time Spent: 47 minutes Discussed with patient, she is aware that she will be going to the chemical laboratory assistant for an angiogram given her chest pain and elevated troponins, NSTEMI. Due to a high probability of clinically significant, life threatening deterioration, the patient required my highest level of preparedness to intervene emergently and I personally spent this critical care time directly and personally managing the patient. This critical care time included obtaining a history; examining the patient; pulse oximetry; ordering and review of studies; arranging urgent treatment with development of a management plan; evaluation of patient's response to treatment; frequent reassessment; and discussions with other providers. It was exclusive of separately billable procedures and treating other patients and teaching time. Please see Assessment and Plan section and the rest of the note for further information on patient assessment and treatment This dictation may have been done utilizing a voice recognition system. Attempts have been made to correct errors. However, there may be uncorrected grammatical, spelling, and recognitions errors present. [facility] Consult Note Consult date: 03/21/25 Reason for consult: NSTEMI, chest pain, dizziness, shortness of breath HPI: Erika Whitfield is a 59 year old female with past medical history of depression, is on a phrenic esophagitis, gastroesophageal reflux disease, anxiety, chronic back pain presented the ED on 02/04/2025 with complains of chest pain with started on the day of admission. Patient complained of left-sided chest pain, radiated to the back, jaw was associated with diaphoresis, shortness of breath and dizziness. EKG showed minimal ST depressions. Troponins were elevated 0.175--> 1.700 --> 2.400. ProBNP was 272, electrolytes were within normal limits. Cbc was unremarkable. Chest x-ray on admission showed no focal infiltrate or effusion, significant gaseous distention of the stomach. Patient was on in the intermediate Unit, chest pain continue to increase, patient was transferred to the ICU for nitroglycerin infusion. Patient seen and examined this morning in the ICU, is awake, alert, oriented, nonfocal. Patient denies any chest pain, shortness of breath, dizziness, nausea, vomiting, diaphoresis. She is on nitroglycerin 45 mcg/min and urine output has been adequate, T-max of 100.5. Total cholesterol and triglycerides elevated on the labs Review of Systems Review of Systems: All systems reviewed & are unremarkable except as noted in HPI and below PMFSH Past Medical History Medical History Depression Eosinophilic esophagitis Gastroesophageal reflux disease Anxiety Sphincter of Oddi dysfunction Chronic back pain Surgical History Surgical History History of open reduction and internal fixation (ORIF) procedure repair left ankle fracture History of tubal ligation History of cholecystectomy History of hysterectomy Family History Family History Other Asthma Depression Family history of arthritis Family history of chronic obstructive pulmonary disease Family history of hearing loss Family history of hepatitis Family history of lung cancer Family history of mental disorder Family history of osteoporosis Family history of thyroid disease Hypertension Social History Social History Social History: Surrogate medical decision maker: Bridger Barnish, spouse. Code status: Full code. Smoking status: Never smoker Alcohol intake: never Substance use: never Substance use type: does not use Do You Feel Safe in your Home?: Yes Lack of Transportation: No Lack of Food: Never True Current Housing: I Have Housing Concerned About Future Housing: No Difficulty Paying Gas/Electric Bills: No Difficulty Paying for Meds: No Currently Unemployed: No Education: Bachelor's Degree Difficulty w/ Childcare or Family Care: No Additional living arrangements comments: Lives with spouse in [place]. 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 Spiritual care concerns: No Meds Home Medications and Allergies Home Medications ?Medication ?Instructions ?Recorded ?Confirmed ?Type gabapentin 300 mg capsule 1,200 mg PO QHS 07/26/20 02/05/25 History hydrocodone 10 mg-acetaminophen 1 tablet PO Q4H PRN pain (scale 07/26/20 02/05/25 History 325 mg tablet score 4-6) omeprazole 40 mg capsule,delayed 40 mg PO QHS 07/26/20 02/05/25 History release ondansetron 4 mg disintegrating 4 mg PO Q8H PRN nausea and vomiting 07/26/20 02/05/25 History tablet fluoxetine 40 mg capsule 40 mg PO QPM 02/05/25 02/05/25 History tizanidine 2 mg tablet 2 mg PO Q8H PRN muscle spasticity 02/05/25 02/05/25 History Allergies Allergy/AdvReac Type Severity Reaction Status Date / Time nickel Allergy Intermediate Hives / Verified 02/04/25 22:23 Red Face Vital Signs Vital Signs - 24 hr 02/04/25 20:37 02/04/25 22:21 02/04/25 22:22 Temperature 97.7 F 97.6 F Pulse Rate 77 73 75 Respiratory Rate 16 16 Blood Pressure 128/80 143/92 H Pulse Oximetry 100 100 Oxygen Delivery Room Air 02/04/25 22:22 02/04/25 22:25 02/05/25 00:43 Temperature 99.2 F Pulse Rate 75 Respiratory Rate 18 Blood Pressure 117/84 Pulse Oximetry 100 100 99 Oxygen Delivery Room Air Room Air 02/05/25 01:00 02/05/25 02:00 02/05/25 03:42 Temperature 100.5 F H Pulse Rate 86 86 87 Respiratory Rate 18 18 Blood Pressure 126/76 Pulse Oximetry 99 100 Oxygen Delivery Room Air 02/05/25 03:47 02/05/25 03:47 02/05/25 04:46 Temperature Pulse Rate 82 82 85 Respiratory Rate 18 Blood Pressure 115/73 Pulse Oximetry 100 Oxygen Delivery Room Air 02/05/25 04:51 02/05/25 05:08 02/05/25 06:00 Temperature Pulse Rate 89 88 89 Respiratory Rate Blood Pressure 116/71 Pulse Oximetry Oxygen Delivery 02/05/25 06:30 02/05/25 06:36 02/05/25 08:00 Temperature Pulse Rate 85 86 88 Respiratory Rate 18 Blood Pressure 103/77 Pulse Oximetry 99 Oxygen Delivery Room Air 02/05/25 08:00 02/05/25 08:00 Temperature Pulse Rate 88 88 Respiratory Rate 18 Blood Pressure 99/60 L Pulse Oximetry 99 Oxygen Delivery Exam Narrative: General: Very pleasant female currently in no acute distress HEENT:? Pupils equal and reactive, sclera is clear Neck:? Supple Respiratory:? Clear to auscultation bilaterally, no wheezing, adequate air entry Cardiac:? S1-S2 is normal, regular rate and rhythm Abdomen:? Soft, nontender, nondistended, normoactive bowel sounds Extremities:? Trace edema on the left ankle, palpable pedal pulses Neuro:? Patient is awake, alert, oriented, answers to questions appropriately and follows simple commands in all extremities Skin:? No lesions noted Psych:? Normal mentation and affect Results Labs 02/04/25 20:54 02/05/25 02:27 Labs: Short CBC 02/04/25 Range/Units 20:54 WBC 8.7 (4.5-10.0) K/mm3 Hgb 13.6 (12.0-15.0) g/dL Hct 41.7 (37.0-47.0) % Plt Count 319 (150-375) k/mm3 BMP 02/04/25 02/05/25 20:54 02:27 Sodium 141 141 Potassium 3.8 4.1 Chloride 106 108 H Carbon Dioxide 19 L 19 L BUN 16 19 H Creatinine 0.87 0.79 Glucose 113 H 132 H Calcium 9.9 9.4 Cardiac Enzymes 02/04/25 02/04/25 02/05/25 Range/Units 20:54 23:36 02:27 Troponin I 0.175 H* 1.700 H* D 2.400 H* D (0.000-0.034) ng/mL Liver Function 02/04/25 Range/Units 20:54 Total Bilirubin 0.9 (0.2-1.3) mg/dL AST 24 (14-36) U/L ALT 18 (6-35) U/L Alkaline Phosphatase 86 (38-126) U/L Albumin 4.9 (3.5-5.1) g/dL Quality VTE Prophylaxis VTE prophylaxis: pharmacologic ordered Hospitalist MIPS Advance Care Plan I have confirmed that the patient's Advanced Care Plan is present, code status is documented, or surrogate decision maker is listed in patient medical record.: Yes Medication Reconciliation I have utilized all available resources to obtain, update and review the patients current medications (includes all prescriptions, OTC, herbals, cannabis, and nutritional supplements).: Yes
--- NOTE | 2025-02-05 09:32 | P.CONCA_ITS ---
Assessment and Plan Assessment and plan (1) Non-ST elevation myocardial infarction (NSTEMI): Code(s): I21.4 - Non-ST elevation (NSTEMI) myocardial infarction Status: Acute Assessment and Plan: Recommend LHC given NSTEMI. Discussed indication for the procedure, procedure details, risk vs benefits, etc. Patient agreeable to proceed. Will plan for LHC this morning. Further recommendations pending results of LHC. Continue ASA 81mg once daily. Start high intensity statin. Echocardiogram. Recommendations and plan discussed with ICU Physician. History of Present Illness History of Present Illness Consult date/time: 02/05/25 09:32 Requesting physician: Aleja Garrido PA-C Consult reason: chest pain Reason For Visit: NSTEMI, chest pain Narrative: We are consulted for NSTEMI. This is a 59 year old female with eosinophilic esophagitis, GERD who presented to [facility] for chest pain. Had substernal/left- sided chest pain that began yesterday evening. Has been waxing and waning. Troponins 0.175, 1.70, 2.4. CXR with clear lungs, significant gaseous distension of the stomach. EKGs show mild ST depressions in the inferolateral leads. She was started on NTG drip due to ongoing chest pain and admitted to the ICU. Review of Systems 2 Review of Systems: All systems reviewed & are unremarkable except as noted in HPI and below (HPI) [facility] Past Medical History Medical History Depression Eosinophilic esophagitis Gastroesophageal reflux disease Anxiety Sphincter of Oddi dysfunction Chronic back pain Surgical History Surgical History History of open reduction and internal fixation (ORIF) procedure repair left ankle fracture History of tubal ligation History of cholecystectomy History of hysterectomy Family History Family History Other Asthma Depression Family history of arthritis Family history of chronic obstructive pulmonary disease Family history of hearing loss Family history of hepatitis Family history of lung cancer Family history of mental disorder Family history of osteoporosis Family history of thyroid disease Hypertension Social History Social History Social History: Surrogate medical decision maker: Bridger Whitfield, spouse. Code status: Full code. Smoking status: Never smoker Alcohol intake: never Substance use: never Substance use type: does not use Do You Feel Safe in your Home?: Yes Lack of Transportation: No Lack of Food: Never True Current Housing: I Have Housing Concerned About Future Housing: No Difficulty Paying Gas/Electric Bills: No Difficulty Paying for Meds: No Currently Unemployed: No Education: Bachelor's Degree Difficulty w/ Childcare or Family Care: No Additional living arrangements comments: Lives with spouse in [place]. 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 Spiritual care concerns: No Meds Home Medications and Allergies Home Medications ?Medication ?Instructions ?Recorded ?Confirmed ?Type gabapentin 300 mg capsule 1,200 mg PO QHS 07/26/20 02/05/25 History hydrocodone 10 mg-acetaminophen 1 tablet PO Q4H PRN pain (scale 07/26/20 02/05/25 History 325 mg tablet score 4-6) omeprazole 40 mg capsule,delayed 40 mg PO QHS 07/26/20 02/05/25 History release ondansetron 4 mg disintegrating 4 mg PO Q8H PRN nausea and vomiting 07/26/20 02/05/25 History tablet fluoxetine 40 mg capsule 40 mg PO QPM 02/05/25 02/05/25 History tizanidine 2 mg tablet 2 mg PO Q8H PRN muscle spasticity 02/05/25 02/05/25 History Allergies Allergy/AdvReac Type Severity Reaction Status Date / Time nickel Allergy Intermediate Hives / Verified 02/04/25 22:23 Red Face Vital Signs Vital Signs - 24 hr 02/04/25 20:37 02/04/25 22:21 02/04/25 22:22 Temperature 36.5 C 36.4 C Pulse Rate 77 73 75 Respiratory Rate 16 16 Blood Pressure 128/80 143/92 H Pulse Oximetry 100 100 Oxygen Delivery Room Air 02/04/25 22:22 02/04/25 22:25 02/05/25 00:43 Temperature 37.3 C Pulse Rate 75 Respiratory Rate 18 Blood Pressure 117/84 Pulse Oximetry 100 100 99 Oxygen Delivery Room Air Room Air 02/05/25 01:00 02/05/25 02:00 02/05/25 03:42 Temperature 38.1 C H Pulse Rate 86 86 87 Respiratory Rate 18 18 Blood Pressure 126/76 Pulse Oximetry 99 100 Oxygen Delivery Room Air 02/05/25 03:47 02/05/25 03:47 02/05/25 04:46 Temperature Pulse Rate 82 82 85 Respiratory Rate 18 Blood Pressure 115/73 Pulse Oximetry 100 Oxygen Delivery Room Air 02/05/25 04:51 02/05/25 05:08 02/05/25 06:00 Temperature Pulse Rate 89 88 89 Respiratory Rate Blood Pressure 116/71 Pulse Oximetry Oxygen Delivery 02/05/25 06:30 02/05/25 06:36 02/05/25 08:00 Temperature Pulse Rate 85 86 88 Respiratory Rate 18 Blood Pressure 103/77 Pulse Oximetry 99 Oxygen Delivery Room Air 02/05/25 08:00 02/05/25 08:00 Temperature Pulse Rate 88 88 Respiratory Rate 18 Blood Pressure 99/60 L Pulse Oximetry 99 Oxygen Delivery Exam 2 Const: General: no acute distress HENMT: Mouth: Yes moist mucous membranes Eyes: General: appearance normal, both eyes and all related structures S clera: sclerae normal Resp: Effort & Inspection: normal respiratory effort Cardio: Rate: regular rate Rhythm: regular rhythm Heart sounds: no murmurs Skin: General skin exam: normal color Neuro: Speech: normal speech Psych: Mental Status: mental status grossly normal Affect: normal affect Results Labs and Meds 02/04/25 20:54 02/05/25 02:27 Lab results: Cardiac Enzymes 02/04/25 02/04/25 02/05/25 Range/Units 20:54 23:36 02:27 AST 24 (14-36) U/L Troponin I 0.175 H* 1.700 H* D 2.400 H* D (0.000-0.034) ng/mL Coagulation 02/04/25 Range/Units 20:54 PT 13.4 (11.1-14.7) Seconds APTT 27.3 (22.3-36.8) Seconds Lipids 02/05/25 Range/Units 02:27 Triglycerides 151 H (<150) mg/dL Cholesterol 298 H (0-200) mg/dL CBC 02/04/25 Range/Units 20:54 WBC 8.7 (4.5-10.0) K/mm3 RBC 4.81 (4.2-5.4) M/mm3 Hgb 13.6 (12.0-15.0) g/dL Hct 41.7 (37.0-47.0) % Plt Count 319 (150-375) k/mm3 Lymph # (Auto) 0.95 (0.9-3.2) K/mm3 [place] # (Auto) 0.5 (0.1-0.6) K/mm3 Eos # (Auto) 0.2 (0-0.3) K/mm3 Baso # (Auto) 0.0 (0.0-0.1) K/mm3 Comprehensive Metabolic Panel 02/04/25 02/05/25 Range/Units 20:54 02:27 Sodium 141 141 (137-145) mmol/L Potassium 3.8 4.1 (3.4-5.0) mmol/L Chloride 106 108 H (98-107) mmol/L Carbon Dioxide 19 L 19 L (22-30) mmol/L BUN 16 19 H (7-17) mg/dL Creatinine 0.87 0.79 (0.7-1.0) mg/dL Glucose 113 H 132 H (65-110) mg/dL Calcium 9.9 9.4 (8.4-10.2) mg/dL AST 24 (14-36) U/L ALT 18 (6-35) U/L Alkaline Phosphatase 86 (38-126) U/L Total Protein 9.0 H (6.3-8.2) g/dL Albumin 4.9 (3.5-5.1) g/dL Intake and Output 02/04/25 02/05/25 02/05/25 23:59 07:59 15:59 Intake Total 24.6 Output Total 200 Balance -175.4 Intake: IV 24.6 Nitroglycerin/D5w 200 Mcg/ml 50 24.6 mg In 250 ml @ 5 MCG/MIN 1.5 mls/hr IV CONT .Q24H [facility] Rx#: [id number] Output: Urine 200 Patient Weight 02/05/25 23:59 Weight 100.8 kg
--- NOTE | 2025-02-05 09:32 | WPDMODSED ---
Moderate Sedation Note-Pt Data Patient Data Diagnosis: NSTEMI Present Complaint: NSTEMI Procedure to be performed/Plan: Coronary angiography, left heart cath, +/- PCI Allergies Allergy/AdvReac Type Severity Reaction Status Date / Time nickel Allergy Intermediate Hives / Verified 02/04/25 22:23 Red Face Home Medications ?Medication ?Instructions ?Recorded ?Confirmed ?Type gabapentin 300 mg capsule 1,200 mg PO QHS 07/26/20 02/05/25 History hydrocodone 10 mg-acetaminophen 1 tablet PO Q4H PRN pain (scale 07/26/20 02/05/25 History 325 mg tablet score 4-6) omeprazole 40 mg capsule,delayed 40 mg PO QHS 07/26/20 02/05/25 History release ondansetron 4 mg disintegrating 4 mg PO Q8H PRN nausea and vomiting 07/26/20 02/05/25 History tablet fluoxetine 40 mg capsule 40 mg PO QPM 02/05/25 02/05/25 History tizanidine 2 mg tablet 2 mg PO Q8H PRN muscle spasticity 02/05/25 02/05/25 History Current Medications: Active Medications Acetaminophen (Acetaminophen 325 Mg Tablet) 650 mg PO Q6H PRN PRN Reason: Mild Pain (1-3) or Fever Last Admin: 02/05/25 05:33 Dose: 650 mg Hydrocodone Bitart/Acetaminophen (Hydrocodone/Acetaminophen (*Crx) 10-325 Mg Tablet) 1 tab PO Q4H PRN PRN Reason: pain (scale score 4-6) Fluoxetine HCl (Fluoxetine Hcl 20 Mg Capsule) 40 mg PO QPM JYOTHI Gabapentin (Gabapentin 400 Mg Capsule) 1,200 mg PO QHS [facility] Nitroglycerin/Dextrose (Nitroglycerin In 5% Dextrose 50 Mg) 50 mg in 250 mls @ 13.5 mls/hr IV CONT .[id number] [facility]; Protocol Last Titration: 02/05/25 06:36 Dose: 50 mcg/min, 15 mls/hr Morphine Sulfate (Morphine Sulfate (*Crx) 2 Mg/Ml Inj) 2 mg IV PUSH Q4H PRN PRN Reason: Pain Rated 7-10 Last Admin: 02/05/25 06:35 Dose: 2 mg Morphine Sulfate (Morphine Sulfate (*Crx) 2 Mg/Ml Inj) 2 mg IV PUSH Q4H PRN PRN Reason: Pain Rated 7-10 Ondansetron HCl (Ondansetron Inj 4 Mg/2 Ml Vial) 4 mg IV PUSH Q6H PRN PRN Reason: Nausea And Vomiting Last Admin: 02/05/25 06:39 Dose: 4 mg Pantoprazole Sodium (Pantoprazole 40 Mg Tablet) 40 mg PO BID JYOTHI Last Admin: 02/05/25 08:27 Dose: 40 mg Tizanidine HCl (Tizanidine Hcl 2 Mg Tablet) 2 mg PO Q8H PRN PRN Reason: muscle spasticity Sedation/Anesthesia: No previous sedation/anesthesia problems (including family history). [facility] Past Medical History Medical History Depression Eosinophilic esophagitis Gastroesophageal reflux disease Anxiety Sphincter of Oddi dysfunction Chronic back pain Surgical History Surgical History History of open reduction and internal fixation (ORIF) procedure repair left ankle fracture History of tubal ligation History of cholecystectomy History of hysterectomy Family History Family History Other Asthma Depression Family history of arthritis Family history of chronic obstructive pulmonary disease Family history of hearing loss Family history of hepatitis Family history of lung cancer Family history of mental disorder Family history of osteoporosis Family history of thyroid disease Hypertension Social History Social History Social History: Surrogate medical decision maker: Bridger Whitfield, spouse. Code status: Full code. Smoking status: Never smoker Alcohol intake: never Substance use: never Substance use type: does not use Do You Feel Safe in your Home?: Yes Lack of Transportation: No Lack of Food: Never True Current Housing: I Have Housing Concerned About Future Housing: No Difficulty Paying Gas/Electric Bills: No Difficulty Paying for Meds: No Currently Unemployed: No Education: Bachelor's Degree Difficulty w/ Childcare or Family Care: No Additional living arrangements comments: Lives with spouse in [place]. 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 Spiritual care concerns: No Mod Sed Physical Exam Physical Exam Pre Procedural Exam: Normal: Appearance, Lungs, Heart Rate, Heart Rhythm, Neuro Exam, Extremities and Skin Hours since solid foods: 12 Hours since liquid intake: 8 Mallampati Classification: class III Internal Medicine - PN: Obj Da Vital Signs Vital Signs: Vital Signs - 24 hr 02/04/25 20:37 02/04/25 22:21 02/04/25 22:22 Temperature 36.5 C 36.4 C Pulse Rate 77 73 75 Respiratory Rate 16 16 Blood Pressure 128/80 143/92 H Pulse Oximetry 100 100 Oxygen Delivery Room Air 02/04/25 22:22 02/04/25 22:25 02/05/25 00:43 Temperature 37.3 C Pulse Rate 75 Respiratory Rate 18 Blood Pressure 117/84 Pulse Oximetry 100 100 99 Oxygen Delivery Room Air Room Air 02/05/25 01:00 02/05/25 02:00 02/05/25 03:42 Temperature 38.1 C H Pulse Rate 86 86 87 Respiratory Rate 18 18 Blood Pressure 126/76 Pulse Oximetry 99 100 Oxygen Delivery Room Air 02/05/25 03:47 02/05/25 03:47 02/05/25 04:46 Temperature Pulse Rate 82 82 85 Respiratory Rate 18 Blood Pressure 115/73 Pulse Oximetry 100 Oxygen Delivery Room Air 02/05/25 04:51 02/05/25 05:08 02/05/25 06:00 Temperature Pulse Rate 89 88 89 Respiratory Rate Blood Pressure 116/71 Pulse Oximetry Oxygen Delivery 02/05/25 06:30 02/05/25 06:36 02/05/25 08:00 Temperature Pulse Rate 85 86 88 Respiratory Rate 18 Blood Pressure 103/77 Pulse Oximetry 99 Oxygen Delivery Room Air 02/05/25 08:00 02/05/25 08:00 Temperature Pulse Rate 88 88 Respiratory Rate 18 Blood Pressure 99/60 L Pulse Oximetry 99 Oxygen Delivery Intake/Output Intake/Output: Intake & Output 02/02/25 02/03/25 02/04/25 02/05/25 23:59 23:59 23:59 23:59 Intake Total 24.6 Output Total 200 Balance -175.4 Meds/Results Medications: Active Medications Generic Name Dose Route Start Last Admin Trade Name Freq PRN Reason Stop Dose Admin Acetaminophen 650 mg 02/04/25 23:21 02/05/25 05:33 Acetaminophen 325 Mg Tablet PO 650 mg Q6H PRN Administration Mild Pain (1-3) or Fever Hydrocodone Bitart/Acetaminophen 1 tab 02/05/25 06:24 Hydrocodone/Acetaminophen (*Crx) 10-325 Mg Tablet PO Q4H PRN pain (scale score 4-6) Fluoxetine HCl 40 mg 02/05/25 18:00 Fluoxetine Hcl 20 Mg Capsule PO QPM [facility] Gabapentin 1,200 mg 02/05/25 21:00 Gabapentin 400 Mg Capsule PO QHS [facility] Nitroglycerin/Dextrose 50 mg in 250 mls @ 13.5 mls/hr 02/05/25 04:35 02/05/25 06:36 Nitroglycerin In 5% Dextrose 50 Mg IV CONT 50 mcg/min .[id number] JYOTHI 15 mls/hr Titration Protocol 45 MCG/MIN Morphine Sulfate 2 mg 02/04/25 23:21 02/05/25 06:35 Morphine Sulfate (*Crx) 2 Mg/Ml Inj IV PUSH 2 mg Q4H PRN Administration Pain Rated 7-10 Morphine Sulfate 2 mg 02/05/25 01:09 Morphine Sulfate (*Crx) 2 Mg/Ml Inj IV PUSH Q4H PRN Pain Rated 7-10 Ondansetron HCl 4 mg 02/04/25 23:21 02/05/25 06:39 Ondansetron Inj 4 Mg/2 Ml Vial IV PUSH 4 mg Q6H PRN Administration Nausea And Vomiting Pantoprazole Sodium 40 mg 02/05/25 09:00 02/05/25 08:27 Pantoprazole 40 Mg Tablet PO 40 mg BID JYOTHI Administration Tizanidine HCl 2 mg 02/05/25 06:24 Tizanidine Hcl 2 Mg Tablet PO Q8H PRN muscle spasticity Radiology Results: ITS Impressions Chest X-Ray 02/04/25 21:10 IMPRESSION: No focal infiltrate or effusion. Labs 02/04/25 20:54 02/05/25 02:27 Labs: Laboratory Results - last 24 hr 02/04/25 02/04/25 02/04/25 20:52 20:54 23:36 WBC 8.7 RBC 4.81 Hgb 13.6 Hct 41.7 MCV 86.7 MCH 28.3 MCHC 32.6 RDW 13.4 Plt Count 319 MPV 9.7 Immature Gran % (Auto) 0.2 Neut % (Auto) 80.2 H Lymph % (Auto) 10.9 L [place] % (Auto) 6.0 Eos % (Auto) 2.4 Baso % (Auto) 0.3 Lymph # (Auto) 0.95 [place] # (Auto) 0.5 Eos # (Auto) 0.2 Baso # (Auto) 0.0 Abs Immat Gran (auto) 0.02 Absolute Neuts (auto) 7.0 H Absolute Nucleated RBC 0.000 Nucleated RBC % 0.0 PT 13.4 INR 1.0 APTT 27.3 D-Dimer 0.31 Sodium 141 Potassium 3.8 Chloride 106 Carbon Dioxide 19 L Anion Gap 16 H BUN 16 Creatinine 0.87 Estim Creat Clear Calc 75 Estimated GFR > 60 Glucose 113 H Calcium 9.9 Magnesium Total Bilirubin 0.9 AST 24 ALT 18 Alkaline Phosphatase 86 Troponin I 0.175 H* 1.700 H* D NT-Pro-B Natriuret Pep 272 H Total Protein 9.0 H Albumin 4.9 Triglycerides Cholesterol LDL Cholesterol Direct HDL Direct Lipase 213 02/05/25 02:27 WBC RBC Hgb Hct MCV MCH MCHC RDW Plt Count MPV Immature Gran % (Auto) Neut % (Auto) Lymph % (Auto) [place] % (Auto) Eos % (Auto) Baso % (Auto) Lymph # (Auto) [place] # (Auto) Eos # (Auto) Baso # (Auto) Abs Immat Gran (auto) Absolute Neuts (auto) Absolute Nucleated RBC Nucleated RBC % PT INR APTT D-Dimer Sodium 141 Potassium 4.1 Chloride 108 H Carbon Dioxide 19 L Anion Gap 14 H BUN 19 H Creatinine 0.79 Estim Creat Clear Calc 84 Estimated GFR > 60 Glucose 132 H Calcium 9.4 Magnesium 1.8 Total Bilirubin AST ALT Alkaline Phosphatase Troponin I 2.400 H* D NT-Pro-B Natriuret Pep Total Protein Albumin Triglycerides 151 H Cholesterol 298 H LDL Cholesterol Direct 79 HDL Direct 74 Lipase ASA Classification/Sedation ASA Classification/Sedation ASA Class: III Emergent: No Risks: Risks, benefits and alternatives explained and patient/family accepted plan for sedation. Patient re-evaluated immediately prior to sedation.
--- NOTE | 2025-02-05 09:38 | WPDCARDPROC ---
Cardiac Cath Procedure Note Date of procedure:: 02/05/25 Performing physician:: CATHETERIZATION LABORATORY REPORT Procedure Date: 02/05/2025 First Breaker Feeder: Dasha Guerrero M.D., [facility]? Referring Physician: Dasha Guerrero M.D. ? Anesthesia: Versed and Fentanyl were ordered and given in my presence at 09:44, procedure ended at 11:09. Supervision of nurse monitored moderate sedation with Versed and Fentanyl was provided for 85 minutes. Total of Versed 3mg and Fentanyl 75mcg were administered by the Petroleum Supply Specialist RN Levon Miranda. Pre-op Diagnosis: NSTEMI Post-op Diagnosis: Multivessel coronary artery disease with significant focal disease in the mid LAD, diffuse disease of small caliber OM, focal disease in the distal RCA, and focal disease in the proximal RPDA. S/p successful PCI: 2.25 mm x 15 mm Tornado ALONDRA in the proximal RPDA. 3.0 mm x 15 mm Caleb ALONDRA in the distal RCA. 3.0 mm x 22 mm [place]ado ALONDRA in the mid LAD. OM-2 is a small caliber vessel with severe diffuse disease. Not amenable to stents. Recommend medical management. Procedure(s): 1. Moderate sedation 2. Ultrasound-guided access of the right radial artery 3. Coronary angiography 4. PCI of the proximal RPDA, distal RCA, and mid LAD with total of ALONDRA x 3 5. IVUS of the RPDA/RCA and LAD. Access Site: Right radial artery Brief History and Clinical Indications: Patient is a 59 year old female who is referred for [facility] for NSTEMI. All risks, benefits and alternatives to left heart catheterization with or without percutaneous coronary intervention was discussed at length with the patient. Risk of complications including but not limited to bleeding, infection, arrhythmia, stroke, worsening kidney function, blood loss, groin hematoma, limb loss, emergency coronary artery bypass grafting, and even were discussed with the patient and all questions were answered. The patient understood and wished to proceed. Time out called, patient name, date of , medical record number, allergies, procedure performed, identify First Breaker Feeder, patient and staff member concurred with accurate data, procedure carried on. Findings: LEFT HEART CATHETERIZATION FINDINGS: 1. Left main: The left main coronary artery is widely patent without any significant obstructive disease. 2. Left anterior descending: The mid LAD has a 70% stenosis. The first diagonal branch is a small caliber vessel with angiographic 60-70% stenosis. 3. Left circumflex: The left circumflex artery has luminal irregularities. OM-1 has mild disease in the proximal portion. OM-2 is a small caliber vessel with severe diffuse disease. 4. Right coronary artery: The RCA is the dominant vessel. The proximal-mid portion has mild 40% disease. The distal RCA has a 70% stenosis. The RPDA has an 80% stenosis in the proximal portion. Description of Procedure and PCI: Informed consent signed and placed in the chart. Patient transferred to lift slab operator room. Prepped and draped in usual sterile fashion. 2% lidocaine injected subcutaneously in right wrist area. 22-gauge venipuncture catheter used to access the right radial artery under ultrasound guidance. 6-FR slender sheath placed in right radial artery. Nitroglycerine and Verapamil were given intraarterial through the sheath. Versacore wire advanced under fluoroscopy 5F Tig 4 diagnostic catheter engaged Left Main Coronary Artery. 5F FR 4 diagnostic catheter engaged Right Coronary Artery Multiple orthogonal angiogram obtained and reviewed. Discussed angiogram findings with the patient regarding multivessel CAD involving LAD, RCA/RPDA, and OM. Discussed with patient that the LAD and RCA/RPDA lesions are amenable to stents, however, the OM disease would not be amenable to intervention given the diffuse nature of disease and small caliber vessel. Discussed option of CT Surgery evaluation for surgical revascularization, however, the OM doesn't appear graftable. Patient expressed understand of the findings and management options, and wanted to proceed with stents. Angiomax was used for anticoagulation. 6F FR 4 guide catheter was used to intubate the RCA. 0.014 [employer] coronary wire was passed in to the distal RPDA. The RPDA lesion was pre-dilated with a 2.5 mm x 15 mm balloon inflated to high RENETTA. The RCA lesion was pre-dilated with the same 2.5 mm x 15 mm balloon inflated to high RENETTA. IVUS catheter advanced distal to the RPDA lesion and reference measurements obtained. A 2.25 mm x 15 mm Caleb ALONDRA was successfully deployed into the proximal RPDA. Intracoronary NTG 200mcg was administered. A 3.0 mm x 15 mm Caleb ALONDRA was successfully deployed in the distal RCA. Intracoronary NTG 200mcg was administered. Follow-up angiograms showed a good result. Coronary wire and guide-catheter were removed Pre-procedure - FRANCISCO 3 flow Post-procedure - FRANCISCO 3 flow No angiographic complications identified. We then proceeded with PCI of the LAD lesion. 6F EBU 3.0 guide catheter was used to intubate the left main. 0.014 [employer] coronary wire was passed in to the distal LAD. The LAD lesion was pre-dilated with a new 2.5 mm x 15 mm balloon inflated to high RENETTA. IVUS catheter advanced distal to the LAD lesion and reference measurements obtained. A 3.0 mm x 22 mm Caleb ALONDRA was successfully deployed into the mid LAD. Follow-up angiograms showed a good result. Coronary wire and guide-catheter were removed Pre-procedure - FRANCISCO 3 flow Post-procedure - FRANCISCO 3 flow No angiographic complications identified. Hemostasis was achieved by application of TR band. Disposition: Floor Plan: The patient will be monitored in the recovery area. DAPT for 1 year followed by ASA indefinitely. High intensity statin. Continue aggressive medical therapy and risk factor modification. ? Dasha Guerrero M.D. Interventional Cardiology
[2025-02-05] MEDS: SODIUM CHLORIDE 0.9% IV 1,000 ML 125 ML IV CONT (11:57)
--- NOTE | 2025-02-05 12:02 | PC.NURSE ---
1145-Back from cardiac cath.
[2025-02-05] MEDS: LORazepam INJ (*CRX) 2 MG/ML VIAL IV PUSH ×2 (14:13→22:53)
[2025-02-05] MEDS: PERFLUTREN LIPID MICROSPHERES 1.5 ML VIAL DILUTED TO 10 ML TOTAL VOLUME IV PUSH (15:50)
[2025-02-05] MEDS: ATORVASTATIN 40 MG TABLET 80 MG PO (17:10)
[2025-02-05] MEDS: FLUoxetine HCL 20 MG CAPSULE 40 MG PO (17:11)
[2025-02-05] MEDS: HYDROcodone/acetaminophen (*CRX) 10-325 MG TABLET 1 TAB PO ×2 (18:23→22:02)
[2025-02-05] MEDS: GABAPENTIN 400 MG CAPSULE 1200 MG PO (20:19)
[2025-02-05] MEDS: TICAGRELOR 90 MG TABLET PO (20:20)
[2025-02-06] VITALS (8 sets, daily range): BP systolic 96–121; BP diastolic 56–74; PULSE 82–93; RESP 19–24; TEMP 37.1–38.2; O2SAT 91–98
[2025-02-06 04:39] LABS: Basophils Percent Auto 0.2 % (0.2-1.2); Hematocrit 38.1 % (37.0-47.0); Hemoglobin 12.1 g/dL (12.0-15.0); Immature Granulocyte Absolute 0.02 K/mm3 (0.00-0.031); Immature Granulocyte Percent A 0.4 % (0-0.5); Lymphocytes Absolute Auto 0.48 K/mm3 (0.9-3.2); Lymphocytes Percent Auto 9.8 % (18.3-44.2); Mean Corpuscular HGB Conc 31.8 g/dl (32-36); Mean Corpuscular Hemoglobin 27.8 pg (26-34); Mean Corpuscular Volume 87.4 fl (80-100); Mean Platelet Volume 9.9 fl (7.4-10.4); Monocytes Absolute Auto 0.6 K/mm3 (0.1-0.6); Monocytes Percent Auto 12.1 % (2.6-8.5); Neutrophils Absolute Auto 3.8 K/mm3 (1.3-6.7); Neutrophils Percent Auto 77.5 % (45.5-73.1); Platelet Count Result 210 k/mm3 (150-375); Red Blood Count 4.36 M/mm3 (4.2-5.4); Red Cell Distribution Width 13.6 % (11.5-14.5); White Blood Count 4.9 K/mm3 (4.5-10.0)
[2025-02-06 04:47] LABS: Alanine Aminotransferase 26 U/L (6-35); Alkaline Phosphatase 87 U/L (38-126); Anion Gap 10 mmol/L (4-12); Aspartate Amino Transferase 76 U/L (14-36); Bilirubin,Total 1.1 mg/dL (0.2-1.3); Blood Urea Nitrogen 13 mg/dL (7-17); Calcium 8.8 mg/dL (8.4-10.2); Carbon Dioxide 25 mmol/L (22-30); Chloride 104 mmol/L (98-107); Cholesterol 221 mg/dL (0-200); Estimated CRCL calculation 91 ml/min; Estimated Glomerular Filt Rate > 60; Glucose 105 mg/dL (65-110); HDL Direct 62 mg/dL; Magnesium 1.7 mg/dL (1.6-2.3); Phosphorus 3.3 mg/dL (2.5-4.5); Potassium 3.2 mmol/L (3.4-5.0); Sodium 139 mmol/L (137-145); Triglycerides 122 mg/dL (<150)
[2025-02-06 04:57] LABS: LDL Cholesterol Direct 49 mg/dL
[2025-02-06] MEDS: HYDROcodone/acetaminophen (*CRX) 10-325 MG TABLET 1 TAB PO ×2 (04:58→09:18)
[2025-02-06] MEDS: PANTOPRAZOLE 40 MG TABLET PO (09:19)
[2025-02-06] MEDS: POTASSIUM CHLORIDE 20 MEQ ER TABLET 40 MEQ PO (09:19)
[2025-02-06] MEDS: CLOPIDOGREL BISULFATE 300 MG TABLET 600 MG PO (09:20)
[2025-02-06] MEDS: ISOSORBIDE MONONITRATE 30 MG TAB.ER.24H PO (09:20)
[2025-02-06] MEDS: ASPIRIN 81 MG ENTERIC TABLET PO (09:20)
[2025-02-06] MEDS: ATORVASTATIN 40 MG TABLET 80 MG PO (09:20)
[2025-02-06] MEDS: MAGNESIUM SULF 2 GM/WATER 50ML 2 GM/50 ML BAG IVPB (09:33)
--- NOTE | 2025-02-06 10:42 | PM.DS ---
DS: Admitting Diagnosis Discharge Date 02/06/2025 Admitting Diagnosis NSTEMI DS: Discharge Diagnosis Discharge Diagnosis (1) Non-ST elevation myocardial infarction (NSTEMI): Code(s): I21.4 - Non-ST elevation (NSTEMI) myocardial infarction Status: Acute DS: Summary Hospital Course Reason for hospitalization: NSTEMI Hospital Course: Admitted with NSTEMI. Underwent cardiac catheterization which showed: Multivessel coronary artery disease with significant focal disease in the mid LAD, diffuse disease of small caliber OM, focal disease in the distal RCA, and focal disease in the proximal RPDA. S/p successful PCI: 2.25 mm x 15 mm Caleb ALONDRA in the proximal RPDA. 3.0 mm x 15 mm Caleb ALONDRA in the distal RCA. 3.0 mm x 22 mm Caleb ALONDRA in the mid LAD. OM-2 is a small caliber vessel with severe diffuse disease. Not amenable to stents. Recommend medical management. Echocardiogram showed: 1. Left ventricular chamber dimension is normal. 2. There is mildly increased left ventricular wall thickness. 3. Left ventricular systolic function is normal, estimated at 50-55%. 4. The anteroseptum is hypokinetic. Inferoseptum is hypokinetic. 5. Right ventricular systolic function is normal. 6. There is mild mitral valve regurgitation. 7. There is mild tricuspid valve regurgitation. Discharged on DAPT with ASA, Plavix. Atorvastatin increased to high intensity dosing. Started on Imdur for antianginal therapy. Status at Discharge Cognitive/behavioral status at discharge: Stable Functional status at discharge: independent ambulation Overall status at discharge: patient is back to baseline Time Spent with Patient Time attestation: Total time spent providing and/or coordinating discharge services: Exam Const: General: comfortable and no acute distress HENMT: Mouth: Yes moist mucous membranes Eyes: General: appearance normal, both eyes and all related structures Sclera: sclerae normal Resp: Effort & Inspection: normal respiratory effort Cardio: Rate: regular rate Rhythm: regular rhythm Skin: General skin exam: normal color Psych: Mental Status: mental status grossly normal Affect: normal affect DS: Data Data Completed and Pending Labs on day of discharge: Labs from last 24 hours 02/06/25 04:30 WBC 4.9 RBC 4.36 Hgb 12.1 Hct 38.1 MCV 87.4 MCH 27.8 MCHC 31.8 L RDW 13.6 Plt Count 210 MPV 9.9 Immature Gran % (Auto) 0.4 Neut % (Auto) 77.5 H Lymph % (Auto) 9.8 L [place] % (Auto) 12.1 H Eos % (Auto) 0.0 Baso % (Auto) 0.2 Lymph # (Auto) 0.48 L [place] # (Auto) 0.6 Eos # (Auto) 0.0 Baso # (Auto) 0.0 Abs Immat Gran (auto) 0.02 Absolute Neuts (auto) 3.8 Absolute Nucleated RBC 0.000 Nucleated RBC % 0.0 Sodium 139 Potassium 3.2 L Chloride 104 Carbon Dioxide 25 Anion Gap 10 BUN 13 D Creatinine 0.72 Estim Creat Clear Calc 91 Estimated GFR > 60 Glucose 105 Calcium 8.8 Phosphorus 3.3 Magnesium 1.7 Total Bilirubin 1.1 AST 76 H ALT 26 Alkaline Phosphatase 87 Total Protein 7.0 Albumin 4.0 Triglycerides 122 Cholesterol 221 H LDL Cholesterol Direct 49 HDL Direct 62 Discharge Plan Discharge Attending physician on discharge: Marina Miller Consulting providers: Lydia Madera Discharging Clinician: Dasha Guerrero Anticipated Discharge Date/Time: 02/06/25 10:38 Patient Disposition: Home, Self-Care Activity: march shower Diet: heart healthy Patient Instructions: Antibiotic Form Patient Language: Kitt[place] Stand Alone Forms: General Discharge Information, Work/School Release IP Follow-up/Referrals: Dasha Guerrero MD [Physician] - Discharge Medications: New clopidogrel 75 mg Tablet 75 mg PO QAM Qty: 90 3RF aspirin 81 mg Tablet,Delayed Release (Dr/Ec) 81 mg PO QAM Qty: 90 3RF atorvastatin [Lipitor] 80 mg tablet 80 mg PO DAILY Qty: 90 3RF isosorbide mononitrate 30 mg Tablet Extended Release 24 Hr 30 mg PO QAM Qty: 90 3RF nitroglycerin 0.4 mg tablet, sublingual 0.4 mg sublingual Q5M PRN (Reason: chest pain) Qty: 30 3RF Rx Instructions: do not exceed 3 doses per episode Continued hydrocodone-acetaminophen 10-325 mg tablet 1 tablet PO Q4H PRN (Reason: pain (scale score 4-6)) omeprazole 40 mg capsule,delayed release(DR/EC) 40 mg PO QHS gabapentin 300 mg capsule 1,200 mg PO QHS ondansetron 4 mg tablet,disintegrating 4 mg PO Q8H PRN (Reason: nausea and vomiting) fluoxetine 40 mg capsule 40 mg PO QPM tizanidine 2 mg tablet 2 mg PO Q8H PRN (Reason: muscle spasticity) Date of admission: 02/05/25 09:30 Primary Care Provider: Nitza,Vinnie Mckee Admitting Provider: Joshua Aguayo Attending physician on admission: Joshua Aguayo Condition: Stable
--- NOTE | 2025-02-06 13:09 | PC.NURSE ---
IV's removed, radial cath site redressed. Discharge instructions reviewed and education provided to the patient and her . Plavix sent with the patients along with the stent card.
--- NOTE | 2025-02-06 13:16 | P.PNIM_ITS ---
Progress Note: A&P Assessment and Plan (1) Non-ST elevation myocardial infarction (NSTEMI): Code(s): I21.4 - Non-ST elevation (NSTEMI) myocardial infarction Status: Acute Assessment and Plan: 02/04/2025: Patient presented with left-sided chest pain, radiated to the back, the jaw and the left arm. Associated with dizziness, shortness of breath, nausea and vomiting -troponins 0.175--> 1.700 --> 2.400. -patient was in the intermediate Unit and was transferred to the ICU for nitroglycerin infusion due to ongoing chest pain -patient did receive aspirin and therapeutic Lovenox in the ER -02/06: coronary angiogram status post PTCA/PCI ALONDRA x1 to proximal RPDA, ALONDRA x1 to distal RCA and ALONDRA x1 to mid LAD -continue aspirin, Plavix, atorvastatin, isosorbide mononitrate, p.r.n. nitroglycerin (2) Gastroesophageal reflux disease: Code(s): K21.9 - Gastro-esophageal reflux disease without esophagitis Status: Acute Assessment and Plan: Continue Protonix q.12 hours (3) RUPALI (generalized anxiety disorder): Code(s): F41.1 - Generalized anxiety disorder Status: Acute Assessment and Plan: Continue fluoxetine Plan DVT prophylaxis: SCDs Stress ulcer prophylaxis: Protonix Nutrition: Heart healthy diet Code Status: Full code Discussed with patient, she is aware that she will be going to the [facility] for an angiogram given her chest pain and elevated troponins, NSTEMI. Due to a high probability of clinically significant, life threatening deterioration, the patient required my highest level of preparedness to intervene emergently and I personally spent this critical care time directly and personally managing the patient. This critical care time included obtaining a history; examining the patient; pulse oximetry; ordering and review of studies; arranging urgent treatment with development of a management plan; evaluation of patient's response to treatment; frequent reassessment; and discussions with other providers. It was exclusive of separately billable procedures and treating other patients and teaching time. Please see Assessment and Plan section and the rest of the note for further information on patient assessment and treatment This dictation may have been done utilizing a voice recognition system. Attempts have been made to correct errors. However, there may be uncorrected grammatical, spelling, and recognitions errors present. Subjective Date/time seen: 02/06/25 13:16 Interval history: Reason for consult: NSTEMI, chest pain, shortness of breath, coronary angiogram status post PTCA/PCI ALONDRA x1 to proximal RPDA, ALONDRA x1 to distal RCA and ALONDRA x1 to mid LAD 02/06: Patient being seen for hospitalist group Patient is continue mild chest discomfort, denies any shortness of breath, nausea, vomiting. Urine output has been adequate hemodynamically stable. Afebrile Review of Systems Review of Systems: All systems reviewed & are unremarkable except as noted in HPI and below Exam Narrative: General: Very pleasant female currently in no acute distress HEENT:? Pupils equal and reactive, sclera is clear Neck:? Supple Respiratory:? Clear to auscultation bilaterally, no wheezing, adequate air entry Cardiac:? S1-S2 is normal, regular rate and rhythm Abdomen:? Soft, nontender, nondistended, normoactive bowel sounds Extremities:? Trace edema on the left ankle, palpable pedal pulses Neuro:? Patient is awake, alert, oriented, answers to questions appropriately and follows simple commands in all extremities Skin:? No lesions noted Psych:? Normal mentation and affect Objective Data Vital Signs Vital Signs: Vital Signs - 24 hr 02/05/25 13:26 02/05/25 14:00 02/05/25 14:18 Temperature Pulse Rate 85 85 88 Respiratory Rate 21 H 24 H Blood Pressure 121/72 113/68 Pulse Oximetry 95 98 Oxygen Delivery 02/05/25 14:26 02/05/25 14:50 02/05/25 15:00 Temperature 99.3 F Pulse Rate 120 H 86 89 Respiratory Rate 22 H 22 H 22 H Blood Pressure 115/69 99/82 L 112/64 Pulse Oximetry 100 92 95 Oxygen Delivery 02/05/25 15:15 02/05/25 15:30 02/05/25 16:00 Temperature Pulse Rate 88 89 85 Respiratory Rate 22 H 22 H 22 H Blood Pressure 106/79 109/72 Pulse Oximetry 96 95 95 Oxygen Delivery Room Air 02/05/25 16:00 02/05/25 16:00 02/05/25 16:00 Temperature 97.8 F Pulse Rate 86 86 86 Respiratory Rate 22 H 22 H Blood Pressure 106/78 106/78 Pulse Oximetry 96 96 Oxygen Delivery 02/05/25 17:26 02/05/25 18:00 02/05/25 20:00 Temperature 98.1 F 99.2 F Pulse Rate 118 H 91 88 Respiratory Rate 22 H 27 H Blood Pressure 111/69 120/74 Pulse Oximetry 100 100 Oxygen Delivery 02/05/25 20:00 02/05/25 20:00 02/05/25 21:51 Temperature Pulse Rate 91 85 Respiratory Rate Blood Pressure Pulse Oximetry 93 Oxygen Delivery Room Air 02/05/25 21:51 02/05/25 23:54 02/06/25 00:00 Temperature Pulse Rate 85 86 Respiratory Rate 22 H Blood Pressure 111/66 Pulse Oximetry 92 93 Oxygen Delivery Room Air 02/06/25 00:00 02/06/25 02:00 02/06/25 03:22 Temperature 98.7 F Pulse Rate 88 82 Respiratory Rate 23 H 22 H Blood Pressure 96/62 L 101/73 Pulse Oximetry 92 94 96 Oxygen Delivery Room Air 02/06/25 04:00 02/06/25 06:00 02/06/25 06:00 Temperature Pulse Rate 90 85 93 Respiratory Rate 23 H 19 Blood Pressure 121/72 97/56 L Pulse Oximetry 91 93 Oxygen Delivery 02/06/25 08:00 02/06/25 08:00 02/06/25 08:00 Temperature 100.7 F H Pulse Rate 87 86 Respiratory Rate 24 H Blood Pressure 96/74 L Pulse Oximetry 98 Oxygen Delivery Room Air 02/06/25 10:00 02/06/25 10:00 02/06/25 12:00 Temperature Pulse Rate 86 88 Respiratory Rate 22 H Blood Pressure 101/68 Pulse Oximetry 97 96 Oxygen Delivery Room Air 02/06/25 12:00 02/06/25 12:00 Temperature Pulse Rate 82 Respiratory Rate Blood Pressure 99/68 L Pulse Oximetry Oxygen Delivery Intake/Output Intake/Output: Intake & Output 02/03/25 02/04/25 02/05/25 02/06/25 23:59 23:59 23:59 23:59 Intake Total 224.6 120 Output Total 1200 Balance -975.4 120 Meds/Results Medications: Active Medications Generic Name Dose Route Start Last Admin Trade Name Freq PRN Reason Stop Dose Admin Acetaminophen 650 mg 02/04/25 23:21 02/05/25 05:33 Acetaminophen 325 Mg Tablet PO 650 mg Q6H PRN Administration Mild Pain (1-3) or Fever Hydrocodone Bitart/Acetaminophen 1 tab 02/05/25 06:24 02/06/25 09:18 Hydrocodone/Acetaminophen (*Crx) 10-325 Mg Tablet PO 1 tab Q4H PRN Administration pain (scale score 4-6) Aspirin 81 mg 02/06/25 09:00 02/06/25 09:20 Aspirin 81 Mg Enteric Tablet PO 81 mg QAM JYOTHI Administration Atorvastatin Calcium 80 mg 02/05/25 09:40 02/06/25 09:20 Atorvastatin 40 Mg Tablet PO 80 mg DAILY JYOTHI Administration Clopidogrel Bisulfate 75 mg 02/07/25 09:00 Clopidogrel Bisulfate 75 Mg Tablet PO QAM JYOTHI Fluoxetine HCl 40 mg 02/05/25 18:00 02/05/25 17:11 Fluoxetine Hcl 20 Mg Capsule PO 40 mg QPM JYOTHI Administration Gabapentin 1,200 mg 02/05/25 21:00 02/05/25 20:19 Gabapentin 400 Mg Capsule PO 1,200 mg QHS JYOTHI Administration Isosorbide Mononitrate 30 mg 02/06/25 09:00 02/06/25 09:20 Isosorbide Mononitrate 30 Mg Tab.Er.24h PO 30 mg QAM JYOTHI Administration Morphine Sulfate 2 mg 02/04/25 23:21 02/05/25 06:35 Morphine Sulfate (*Crx) 2 Mg/Ml Inj IV PUSH 2 mg Q4H PRN Administration Pain Rated 7-10 Morphine Sulfate 2 mg 02/05/25 01:09 Morphine Sulfate (*Crx) 2 Mg/Ml Inj IV PUSH Q4H PRN Pain Rated 7-10 Ondansetron HCl 4 mg 02/04/25 23:21 02/05/25 17:13 Ondansetron Inj 4 Mg/2 Ml Vial IV PUSH 4 mg Q6H PRN Administration Nausea And Vomiting Pantoprazole Sodium 40 mg 02/05/25 09:00 02/06/25 09:19 Pantoprazole 40 Mg Tablet PO 40 mg BID JYOTHI Administration Perflutren Lipid Microsphere 0 ml 02/05/25 09:37 Perflutren Lipid Microspheres 1.5 Ml Vial Diluted To 10 Ml Total Volume IV PUSH 02/08/25 09:37 ONCE PRN adequate visualization Protocol Tizanidine HCl 2 mg 02/05/25 06:24 Tizanidine Hcl 2 Mg Tablet PO Q8H PRN muscle spasticity Radiology Results: ITS Impressions Chest X-Ray 02/04/25 21:10 IMPRESSION: No focal infiltrate or effusion. Labs Labs: Laboratory Results - last 24 hr 02/06/25 04:30 WBC 4.9 RBC 4.36 Hgb 12.1 Hct 38.1 MCV 87.4 MCH 27.8 MCHC 31.8 L RDW 13.6 Plt Count 210 MPV 9.9 Immature Gran % (Auto) 0.4 Neut % (Auto) 77.5 H Lymph % (Auto) 9.8 L Millard % (Auto) 12.1 H Eos % (Auto) 0.0 Baso % (Auto) 0.2 Lymph # (Auto) 0.48 L Millard # (Auto) 0.6 Eos # (Auto) 0.0 Baso # (Auto) 0.0 Abs Immat Gran (auto) 0.02 Absolute Neuts (auto) 3.8 Absolute Nucleated RBC 0.000 Nucleated RBC % 0.0 Sodium 139 Potassium 3.2 L Chloride 104 Carbon Dioxide 25 Anion Gap 10 BUN 13 D Creatinine 0.72 Estim Creat Clear Calc 91 Estimated GFR > 60 Glucose 105 Calcium 8.8 Phosphorus 3.3 Magnesium 1.7 Total Bilirubin 1.1 AST 76 H ALT 26 Alkaline Phosphatase 87 Total Protein 7.0 Albumin 4.0 Triglycerides 122 Cholesterol 221 H LDL Cholesterol Direct 49 HDL Direct 62 Quality VTE Prophylaxis VTE prophylaxis: pharmacologic ordered
--- NOTE | 2025-02-09 12:38 | IVDEFINITY ---
Prior to administration of IV Definity the patient was educated on the risks and benefits of the imaging enhancing agent including potential adverse side effects. The patient verbalized understanding. Allergies were verified. No exclusion criteria were identified and at least one of the following inclusion criteria were met: 1) physician request, 2) patient technically difficult to image (per the [place] [employer] guidelines of two or more segments not discernable within the apical view), or 3) questionable left ventricular function. ?
== END 2025-02-06 13:07 | disposition home or self-care (01) | DRG 322 ==
LOC: ANHED 23:44 → ANHIMU 02-05 → ANHICU 02-05 04:40
PROVIDERS: Emergency Medicine; Internal Medicine; Physician Assistant; Admitting Provider Internal Medicine; Emergency Provider Registered Nurse; PCP Family Medicine; Visit Provider Internal Medicine
PROC: 027236Z Dilation of Coronary Artery, Three Arteries with Three Drug-eluting Intraluminal Devices, Percutaneous Approach (ICD-10-PCS; CPT 93454; principal; 2025-02-05 09:00)
PROC: 027236Z Dilation of Coronary Artery, Three Arteries with Three Drug-eluting Intraluminal Devices, Percutaneous Approach (ICD-10-PCS; 2025-02-05 09:00)
PROC: 027236Z Dilation of Coronary Artery, Three Arteries with Three Drug-eluting Intraluminal Devices, Percutaneous Approach (ICD-10-PCS; 2025-02-05 09:00)
PROC: 027236Z Dilation of Coronary Artery, Three Arteries with Three Drug-eluting Intraluminal Devices, Percutaneous Approach (ICD-10-PCS; 2025-02-05 09:00)
PROC: 027236Z Dilation of Coronary Artery, Three Arteries with Three Drug-eluting Intraluminal Devices, Percutaneous Approach (ICD-10-PCS; CPT 92979; 2025-02-05 09:00)
DX: I21.4 Non-ST elevation (NSTEMI) myocardial infarction (principal); I25.10 Atherosclerotic heart disease of native coronary artery without angina pectoris; F41.1 Generalized anxiety disorder; F32.A Depression, unspecified; K21.00 Gastro-esophageal reflux disease with esophagitis, without bleeding; Z79.899 Other long term (current) drug therapy
CPT/HCPCS: 36415; 71046; 80048; 80053; 80061; 83690; 83735; 83880; 84100; 84484; 85025; 85380; 85610; 85730; 92978; 92979; 93005; 93306; 93454; 96372; 96374; 96375; 96376; 99285; A9270; C1725; C1753; C1769; C1874; C1887; C1894; C8929; C9600; G0378; J0583; J1644; J1650; J2003; J2060; J2250; J2270; J2305; J2405; J2550; J3010; J3475; J7030; J7040; Q9957

== ENCOUNTER 2025-06-07 08:45 | Outpatient (RCR) | payer BC, SELFPAY ==
[2025-02-26 15:47] VITALS: PULSE 71
== END 2025-06-09 10:07 | disposition home or self-care (01) ==
LOC: ANHCPREHAB 08:45
PROVIDERS: PCP Family Medicine; Visit Provider Internal Medicine
DX: Z95.5 Presence of coronary angioplasty implant and graft (principal)
CPT/HCPCS: 93798